=== PATIENT | female | born 1960 | race Caucasian/White ===

== ENCOUNTER 2019-12-03 11:06 | Outpatient (CLI) | payer OTHER, SELFPAY ==
--- NOTE | 2019-12-03 | ECG_ITS ---
Measurements Intervals [place] Rate: 71 P: 16 [place]: 161 QRS: 31 QRSD: 88 T: 45 QT: 402 QTc: 438 Interpretive Statements SINUS RHYTHM NORMAL ECG Electronically Signed On 12-03-2019 11:56:16 CDT by Ivan Araiza D.O.
[2019-12-03 11:51] LABS: Hemoglobin A1C 5.2 % (<5.7)
[2019-12-03 11:53] LABS: Albumin Level 4.4 g/dL (3.5-5.1)
[2019-12-03 11:56] LABS: Estimated Glomerular Filt Rate > 60; Glucose 94 mg/dL (65-105)
[2019-12-03 12:42] LABS: Urine Cotinine NEGATIVE
== END 2019-12-03 11:07 | disposition home or self-care (01) ==
LOC: ANHLAB 11:09
PROVIDERS: PCP Internal Medicine Geriatric Medicine; Visit Provider Orthopaedic Surgery
DX: M17.12 Unilateral primary osteoarthritis, left knee (principal)
CPT/HCPCS: 36415; 80307; 82040; 82565; 82947; 83036; 93005

== ENCOUNTER 2019-12-09 10:37 | Outpatient (CLI) | payer OTHER, SELFPAY ==
[2019-12-09 14:50] LABS: Basophils Absolute Auto 0.1 K/mm3 (0.0-0.1); Basophils Percent Auto 0.9 % (0.2-1.2); Eosinophils Absolute Auto 0.2 K/mm3 (0-0.3); Eosinophils Percent Auto 2.7 % (0-4.4); Hematocrit 39.8 % (37.0-47.0); Hemoglobin 12.5 g/dL (12.0-15.0); Immature Granulocyte Absolute 0.03 K/mm3 (0.00-0.031); Immature Granulocyte Percent A 0.3 % (0-0.5); Lymphocytes Absolute Auto 2.39 K/mm3 (0.9-3.2); Lymphocytes Percent Auto 27.9 % (18.3-44.2); Mean Corpuscular HGB Conc 31.4 g/dl (32-36); Mean Corpuscular Hemoglobin 28.6 pg (26-34); Mean Corpuscular Volume 91.1 fl (80-100); Monocytes Absolute Auto 0.8 K/mm3 (0.1-0.6); Monocytes Percent Auto 8.7 % (2.6-8.5); Neutrophils Absolute Auto 5.1 K/mm3 (1.3-6.7); Neutrophils Percent Auto 59.5 % (45.5-73.1); Platelet Count Result 343 k/mm3 (150-375); Red Blood Count 4.37 M/mm3 (4.2-5.4); Red Cell Distribution Width 13.7 % (11.5-14.5); White Blood Count 8.6 K/mm3 (4.5-10.0)
== END 2019-12-09 10:38 ==
LOC: ANHSURGERY 01-23 10:37
PROVIDERS: PCP Internal Medicine Geriatric Medicine; Visit Provider Orthopaedic Surgery
DX: M17.12 Unilateral primary osteoarthritis, left knee (principal); Z01.818 Encounter for other preprocedural examination
CPT/HCPCS: 36415; 85025; 87081

== ENCOUNTER 2019-12-27 00:26 | Outpatient (CLI) | payer OTHER, SELFPAY ==
[2019-12-27 18:04] LABS: SARS-CoV-2 RNA PCR Negative
== END 2019-12-27 00:27 | disposition home or self-care (01) ==
LOC: ANHCOVIDDT 00:26
PROVIDERS: PCP Internal Medicine Geriatric Medicine; Visit Provider Orthopaedic Surgery
DX: Z01.818 Encounter for other preprocedural examination (principal); Z20.828 Contact with and (suspected) exposure to other viral communicable diseases
CPT/HCPCS: 87635; C9803; U0003

== ENCOUNTER 2019-12-30 01:41 | Day surgery (SDC) | payer OTHER, SELFPAY ==
[2019-12-09 13:53] VITALS: BMI 32.6
[2019-12-09 14:35] VITALS: BP 117/74; PULSE 80; RESP 16; TEMP 37.3; O2SAT 97
--- NOTE | 2019-12-29 12:35 | WPDANESEPPF ---
Anes - Initial Pre Proc Eval Procedure: Operation Date: 12/30/19 11:30 Proposed Procedures p Left Total Knee Arthroplasty - Cristopher Joseph MD Date/Time: 12/29/19 12:35 Surgeon: Cristopher Joseph MD Pre Op Diagnosis: Primary OA Left Knee Patient Data Age: 59 Gender: F Height: 1.75 m Weight: 100.3 kg Last Vital Signs Temp 37.3 C 12/09/19 14:35 Pulse 80 12/09/19 14:35 Resp 16 12/09/19 14:35 BP 117/74 12/09/19 14:35 Pulse Ox 97 12/09/19 14:35 Allergies Allergy/AdvReac Type Severity Reaction Status Date / Time No Known Allergies Allergy Verified 12/30/19 09:34 Home Medications Medication Instructions Recorded Confirmed Type acetaminophen 500 mg tablet 500 mg PO Q6H PRN 11/27/19 12/30/19 History acetaminophen-caffeine 500 mg-65 2 tablet PO Q12H PRN 11/27/19 12/30/19 History mg tablet igjfmxu-qtmouekvg-ojtwfxs D2 500 1 tablet PO QAM 11/27/19 12/30/19 History mg-50 mg-100 unit chewable tablet ibuprofen 200 mg capsule 400 mg PO PRN PRN 11/27/19 12/30/19 History naproxen sodium 220 mg tablet 220 mg PO PRN PRN 11/27/19 12/30/19 History polyethylene glycol 3350 17 17 g PO DAILY 11/27/19 12/30/19 History gram/dose oral powder psyllium husk 0.4 gram capsule 0.4 g PO DAILY 11/27/19 12/30/19 History turmeric root extract 500 mg 500 mg PO QAM 11/27/19 12/30/19 History capsule L.acidophilus-B.bifidum-B.longum 1 cap PO QAM 12/03/19 12/30/19 History 240 mg (3 billion cell) capsule hydrocodone 5 mg-acetaminophen 325 1 tablet PO Q8H PRN 12/03/19 12/30/19 History mg tablet ECG: Date of Service: 12/03/19 Procedure(s): CA 12 lead EKG Accession Number(s): [id number] cc: ~ Measurements Intervals [place] Rate: 71 P: 16 [place]: 161 QRS: 31 QRSD: 88 T: 45 QT: 402 QTc: 438 Interpretive Statements SINUS RHYTHM NORMAL ECG Electronically Signed On 12-03-2019 11:56:16 CDT by Ivan Araiza D.O. Dictated By: Ivan Araiza DO 12/03/19 1153 Patient hx anesthesia problems: none Family hx anesthesia problems: none PMFSH Past Medical History Medical History Adenomatous colon polyp Arthritis Chronic knee pain after total replacement of right knee joint Diverticulitis (~06/2019) H/O tics Hemorrhoids Obesity Polyp of ascending colon Surgical History Surgical History H/O colonoscopy (~09/2019) H/O foot surgery H/O hand surgery H/O: hysterectomy (~2001) History of arthroscopy of right knee (~12/2013) History of bladder suspension procedure Hx of total knee arthroplasty (~05/08/18) Status post right partial knee replacement (~04/2013) Family History Family History Father ALS (amyotrophic lateral sclerosis) Mother Old age Unknown Heart disease Carcinoma of colon Social History Social History Smoking status: Never smoker Additional smoking assessment comments: DENIES ANY FORM OF TOBACCO USE Alcohol intake: current Drinks per week: 6 Alcohol use details: BEER/WINE Living arrangements: with family Spiritual care concerns: No Anes - Eval Final PreProcedure Day of Procedure 12/29/19 12:35 Patient weight: obese Heart: regular rate and rhythm Lungs: clear to auscultation and normal air movement Airway: Mallampati scale class II Neurological: alert and oriented Last oral intake: >/= 8 hours ASA classification: II Emergent: no Anesthetic plan: proceed Anesthesia type and monitoring: general LMA Informed Consent: The patient's
[2019-12-30] VITALS (13 sets, daily range): BP systolic 112–141; BP diastolic 57–78; PULSE 65–87; RESP 13–20; TEMP 36.2–37.1; O2SAT 92–98
--- NOTE | ~2019-12-30 | XR_ITS ---
EXAMINATION: XR knee LT 2V DATE: 12/30/2019 14:45 INDICATION: Total left knee arthroplasty. Postop. TECHNIQUE: 2 views of left knee were obtained. COMPARISON: None. FINDINGS: There is a total left knee arthroplasty without patellar resurfacing. Tibia demonstrates 8 degrees posterior angulation with respect to tibial component. No fracture. There is gas in the soft tissues, consistent with recent surgery. IMPRESSION: 1. New total left knee arthroplasty. Reviewed, dictated and finalized at location B. DE SALES ASSOCIATE
--- NOTE | 2019-12-30 07:56 | WPDHPUPDATE1 ---
History and Physical Update Update Date/Time: 12/30/19 07:56 History and Physical has been reviewed, including an updated exam of the patient. There are NO changes in the patient's condition. Risks, benefits, and alternatives have been discussed and questions answered. Patient agrees to proceed with procedure.
[2019-12-30] MEDS: LACTATED RINGERS 1,000 ML 30 ML IV CONT ×3 (10:05→15:35)
[2019-12-30] MEDS: ACETAMINOPHEN 500 MG TABLET 1000 MG PO (10:05)
[2019-12-30] MEDS: KETOROLAC 15 MG/ML VIAL (*BKC) IV PUSH ×3 (10:05→21:12)
--- NOTE | 2019-12-30 10:11 | WPDANESPNB ---
Anes - Peripheral Nerve Block Date/Time: 12/30/19 10:11 I have discussed with the patient/family/POA the placement of a peripheral nerve block for post-operative pain management, including associated risks, benefits, complications, and side effects. Alternative methods of post-operative analgesia were detailed. Questions were solicited and answers provided to the satisfaction of the patient/family/POA. Time-Out: A pre-procedural Time-Out was completed immediately before starting the procedure and confirmed: Patient Identification, Site, Procedure, Patient Position and the Availability of Requisite Equipment. Clinical Indications: Acute post-operative pain management requested by the operative surgeon. Nerve Block Insertion Note Anes-nerve block: adductor canal left Patient position: supine Skin prep: chlorhexidine Needle: 22 gauge, stimulating, insulated echogenic needle. Needle length: 80 mm Technique: ultrasound Technique comment: in plane Injectate: bupivacaine 0.5% with epi 5 mcg/ml (30cc) Observations: tolerated well Complications: none Procedure start time:: 1145 Procedure end time:: 1150
[2019-12-30] MEDS: TRANEXAMIC ACID 1,000MG/ISO100 1,000 MG/100 ML BAG 200 MG IVPB (10:55)
--- NOTE | 2019-12-30 11:44 | SUR.PREOP ---
Up to bathroom.
[2019-12-30] MEDS: ceFAZolin 2 GM/D5W 50 ML 2 GM/50 ML BAG IVPB (11:58)
[2019-12-30] MEDS: fentaNYL CITRATE INJ (*CRX) 100 MCG/2 ML VIAL 25 MCG IV PUSH ×8 (14:56→15:41)
[2019-12-30] MEDS: ONDANSETRON INJ 4 MG/2 ML VIAL IV PUSH (14:59)
--- NOTE | 2019-12-30 15:09 | P.OP_ITS ---
Procedure Note - Detailed Date of procedure: 12/31/19 Pre-op diagnosis: Primary OA Left Knee Post-op diagnosis: same Procedure performed: Total knee arthroplasty, left Implants: Zimmerman Triathlon size 3 press-fit femur, size 4 cemented low-profile tibia, 9 mm posterior stablilized polyethylene insert. Anesthesia: GETA and regional (subsartorial nerve block) Surgeon: Cristopher Joseph MD Estimated blood loss (mL): 200 Drains: No Complications: None Condition: stable Disposition: PACU Findings: OPERATIVE DETAILS: The patient was given a nerve block preoperatively, and then brought to the operating room. A general anesthetic was administered. The leg was prepped and draped in the usual sterile fashion. The limb was elevated and the tourniquet inflated to 300 mmHg during initial exposure and cementation. A longitudinal incision was created along the medial border of the patella and patellar tendon, and a minimally invasive optimized mid-vastus approach to the knee was performed. A minimal medial release was taken. The knee was then flexed. The osteophytes were carefully removed. The intramedullary guide was placed in the femoral canal. The distal femoral resection was then taken with the oscillating saw. The collateral ligaments were carefully protected. The tibia was carefully exposed. The jig was applied, and the proximal tibia was resected according to preoperative plan. The knee was balanced in extension. Appropriate releases were taken where needed. The anterior cruciate ligament and meniscal remnants were removed. The posterior cruciate ligament was preserved. The patella was measured. The thickness was less than 10 mm at the lateral facet. This was deemed too thin for resurfacing. Arthroplasty was performed with careful contouring of the lateral facet. Bipolar electrocautery was used for denervation. The femur was sized and rotation assessed using a combination of gap balancing, posterior referencing, and the AP axis. The 4 in 1 cutting block was used to finish the femoral cuts after equal gaps were assured. The PCL was not functioning very well with trialing. It was elected to proceed with PCL substituting knee design and the box cut was taken. The lug holes were drilled. The osteophytes were carefully removed from the back of the knee. The knee was copiously irrigated with antibiotic solution periodically throughout the procedure. The meniscal remnants were removed. The spacer block was used to confirm equal flexion and extension gaps. The tibia was sized and broached. The bony surfaces were prepared for cementing with pulsatile lavage. The real tibial component was cemented into position followed by press fitting the femoral component. Excess cement was carefully removed. Patellar tracking was carefully assessed. No additional releases were required. The wound was closed with #1 Vycril suture, #2 Quill suture, 0-Quill suture, and 2-0 Quill suture followed by Steri-Strips. A sterile bulky dressing was applied. Meticulous hemostasis was maintained throughout the procedure. There were no complications. The patient was extubated and brought to the recovery room in stable condition after the application of sterile dressing with Robinson bandage.
--- NOTE | 2019-12-30 16:01 | ADMGEN ---
This patient, Alana Batres, was admitted to Medical Room 258-01. Patient/family oriented to hospital policies and general routines including ID bracelet, bed and alarms, visiting hours, pain management, procedures, bathroom and other care routines, personal items, smoking policy, room service/diet, and visiting hours. Information on how to activate the Rapid Response Team has been discussed. Patient/Family are encouraged to report perceived risks to care and to ask questions if they do not understand what they are told or what they should do.
[2019-12-30] MEDS: DOCUSATE SODIUM 100 MG CAPSULE PO (17:08)
[2019-12-30] MEDS: ASPIRIN 81 MG ENTERIC TABLET PO (17:08)
[2019-12-30] MEDS: oxyCODONE HCL (*CRX) 5 MG TAB IR PO (17:16)
[2019-12-30] MEDS: oxyCODONE HCL (*CRX) 5 MG TAB IR 10 MG PO (21:11)
[2019-12-30] MEDS: SENNOSIDES 8.6 MG TABLET 17.2 MG PO (21:11)
[2019-12-31] MEDS: oxyCODONE HCL (*CRX) 5 MG TAB IR 10 MG PO ×3 (01:02→08:59)
[2019-12-31 02:00] VITALS: BP 108/55; PULSE 70; RESP 20; TEMP 36.6; O2SAT 98
[2019-12-31] MEDS: KETOROLAC 15 MG/ML VIAL (*BKC) IV PUSH ×2 (04:04→10:24)
[2019-12-31 05:29] LABS: Basophils Percent Auto 0.3 % (0.2-1.2); Eosinophils Absolute Auto 0.1 K/mm3 (0-0.3); Eosinophils Percent Auto 0.8 % (0-4.4); Hematocrit 33.1 % (37.0-47.0); Hemoglobin 10.6 g/dL (12.0-15.0); Immature Granulocyte Absolute 0.05 K/mm3 (0.00-0.031); Immature Granulocyte Percent A 0.4 % (0-0.5); Lymphocytes Absolute Auto 2.35 K/mm3 (0.9-3.2); Lymphocytes Percent Auto 19.9 % (18.3-44.2); Mean Corpuscular Hemoglobin 28.4 pg (26-34); Mean Corpuscular Volume 88.7 fl (80-100); Monocytes Absolute Auto 1.3 K/mm3 (0.1-0.6); Monocytes Percent Auto 11.4 % (2.6-8.5); Neutrophils Absolute Auto 7.9 K/mm3 (1.3-6.7); Neutrophils Percent Auto 67.2 % (45.5-73.1); Platelet Count Result 225 k/mm3 (150-375); Red Blood Count 3.73 M/mm3 (4.2-5.4); Red Cell Distribution Width 14.2 % (11.5-14.5); White Blood Count 11.8 K/mm3 (4.5-10.0)
[2019-12-31 05:39] LABS: Anion Gap 3 mmol/L (8-16); Blood Urea Nitrogen 12 mg/dL (7-17); Calcium 8.4 mg/dL (8.4-10.2); Carbon Dioxide 26 mmol/L (22-30); Chloride 109 mmol/L (98-107); Estimated CRCL calculation 110 ml/min; Estimated Glomerular Filt Rate > 60; Glucose 96 mg/dL (65-105); Potassium 4.2 mmol/L (3.4-5.0); Sodium 138 mmol/L (137-145)
[2019-12-31 06:00] VITALS: BP 102/54; PULSE 90; RESP 20; TEMP 36.8; O2SAT 98
--- NOTE | 2019-12-31 07:49 | WPDANESPN ---
Anes - Prog Note Post-Op Date/Time: 12/31/19 07:49 Cardiovascular status: normal Respiratory status: normal Airway patency: baseline Mental status: baseline Post-Op hydration status: normal Vital Signs: Last Vital Signs Temp 36.6 C 12/31/19 02:00 Pulse 70 12/31/19 02:00 Resp 20 12/31/19 02:00 BP 108/55 L 12/31/19 02:00 Pulse Ox 98 12/31/19 02:00 Pain Score (VAS): 8 I/O: Intake & Output 12/30/19 12/30/19 12/31/19 15:59 23:59 07:59 Intake Total 850 390 250 Output Total 700 Balance 850 390 -450 Laboratory Tests 12/31/19 05:16 12/31/19 05:16 12/30/19 12/31/19 12/31/19 09:33 05:16 05:16 WBC 11.8 H RBC 3.73 L Hgb 10.6 L Hct 33.1 L MCV 88.7 MCH 28.4 MCHC 32.0 RDW 14.2 Plt Count 225 MPV 10.0 Immature Gran % (Auto) 0.4 Neut % (Auto) 67.2 Lymph % (Auto) 19.9 Dickens % (Auto) 11.4 H Eos % (Auto) 0.8 Baso % (Auto) 0.3 Lymph # (Auto) 2.35 Dickens # (Auto) 1.3 H Eos # (Auto) 0.1 Baso # (Auto) 0.0 Abs Immat Gran (auto) 0.05 H Absolute Neuts (auto) 7.9 H Absolute Nucleated RBC 0.0 Nucleated RBC % 0.0 Sodium 138 Potassium 4.2 Chloride 109 H Carbon Dioxide 26 Anion Gap 3 L BUN 12 Creatinine 0.60 L Estim Creat Clear Calc 110 Estimated GFR > 60 Glucose 96 Calcium 8.4 Blood Type O Positive Antibody Screen Negative Post-procedural complaints: none Patient Feedback: Patient satisfied with anesthetic care.
[2019-12-31] MEDS: DOCUSATE SODIUM 100 MG CAPSULE PO (08:10)
[2019-12-31] MEDS: polyethylene glycoL 3350 17 GM POWD.PACK PO (08:10)
[2019-12-31] MEDS: PSYLLIUM POWDER PACKET 1 PACKET PO (08:10)
[2019-12-31] MEDS: ACIDOPHILUS/BULGARICUS CHEWABLE TABLET 1 TABLET PO (08:10)
[2019-12-31] MEDS: ASPIRIN 81 MG ENTERIC TABLET PO (08:10)
[2019-12-31 09:58] VITALS: BP 115/53; PULSE 90; RESP 20; TEMP 36.4; O2SAT 97
[2019-12-31] MEDS: CYCLOBENZAPRINE HCL 10 MG TABLET PO (11:52)
--- NOTE | 2019-12-31 12:06 | PCOTNOTE ---
On 12/31/19, the student, Justine Chowdhury, provided care and completed [facility] documentation on this patient. I have reviewed the student's documentation and agree with the findings.
== END 2019-12-31 12:35 | disposition home or self-care (01) ==
LOC: ANHSURGERY 09:22 → ANH2MED 15:46
PROVIDERS: PCP Internal Medicine Geriatric Medicine; Visit Provider Orthopaedic Surgery
PROC: (CPT 27447; principal; 2019-12-30 11:30)
DX: M17.12 Unilateral primary osteoarthritis, left knee (principal); M25.761 Osteophyte, right knee; G89.18 Other acute postprocedural pain; E66.9 Obesity, unspecified; Z68.32 Body mass index [BMI] 32.0-32.9, adult; Z79.82 Long term (current) use of aspirin; Z79.899 Other long term (current) drug therapy
CPT/HCPCS: 64447; 27447; 36415; 73560; 80048; 85025; 86850; 86900; 86901; 97110; 97116; 97161; 97165; A9270; C1713; C1776; J0131; J0171; J0690; J1100; J1170; J1885; J2250; J2270; J2405; J2704; J2795; J3010; J7120

== ENCOUNTER 2020-05-07 16:27 | Emergency (ER) | payer OTHER, SELFPAY ==
--- NOTE | ~2020-05-07 | XR_ITS ---
XR wrist LT min 3V DATE: 05/07/2020 16:52 INDICATION: Ulnar pain TECHNIQUE: 4 views COMPARISON: None FINDINGS: There is patchy sclerosis of the lunate bone consistent with avascular necrosis (Kienbock's disease). Mild osteoarthritis at the first carpometacarpal and metacarpal joints. No fracture or dislocation, periosteal reaction or bone destruction. IMPRESSION: Kienbock's disease of lunate Reviewed, dictated and finalized at location A.
--- NOTE | 2020-05-07 16:34 | ED.GENADULT ---
HPI - General Adult General Chief complaint: Extremity Injury, Upper Stated complaint: left wrist injury Time Seen by Provider: 05/07/20 16:34 Source: patient Mode of arrival: ambulatory Limitations: no limitations History of Present Illness HPI narrative: 59-year-old female patient presents to the [facility] with complaints of left wrist pain for the past 6 days. Patient states last Sunday she went to the post office when she went to go and leave she was going for force towards the door states that the big heavy door did not open and she slammed her left wrist up against the door. Patient states the first day that happened she did ice it but denies any ice since then. Patient states it has been swollen and bruised. Patient states she has some home tramadol she has been taking for pain. Patient states she is also had now some numbness and tingling to the pinky and ring finger of the left hand. Patient states she is right-hand dominant. Patient states most of her pain is on the ulnar side of the wrist and states she is able to bend it but states it just causes her pain when she does. Related Data Allergies Allergy/AdvReac Type Severity Reaction Status Date / Time No Known Allergies Allergy Verified 05/07/20 16:45 Review of Systems Review of Systems: Narrative: CONSTITUTIONAL: Denies fever, chills, or sweats. EYES: Denies visual changes, redness, or discharge. ENT: Denies rhinorrhea, congestion, sore throat, or otalgia. CARDIOVASCULAR: Denies chest pain, palpitations, or edema. RESPIRATORY: Denies cough or dyspnea. GASTROINTESTINAL: Denies abdominal pain, nausea, vomiting, or diarrhea. GENITOURINARY: Denies dysuria or hematuria. SKIN: Denies rash or itching. MUSCULOSKELETAL: Denies back pain, joint pain, or myalgia. Positive left wrist pain x6 days NEUROLOGIC: Denies headache, numbness, or weakness. PSYCHIATRIC: Denies anxiety or depression. [facility] Past Medical History Medical History Adenomatous colon polyp Arthritis Chronic knee pain after total replacement of right knee joint Diverticulitis (~06/2019) H/O tics Hemorrhoids Obesity Polyp of ascending colon Surgical History Surgical History H/O colonoscopy (~09/2019) H/O foot surgery H/O hand surgery H/O: hysterectomy (~2001) History of arthroscopy of right knee (~12/2013) History of bladder suspension procedure Hx of total knee arthroplasty (~05/08/18) Status post right partial knee replacement (~04/2013) Family History Family History Father ALS (amyotrophic lateral sclerosis) Mother Old age Unknown Heart disease Carcinoma of colon Social History Social History Smoking status: Never smoker Additional smoking assessment comments: DENIES ANY FORM OF TOBACCO USE Alcohol intake: current Drinks per week: 3 Substance use: never Substance use type: does not use Gender identity (if verbalized by the patient): Female Spiritual care concerns: No Comments At the time of my signature I agree with nursing past medical history, surgical, social, and family history. There is no relevant family history pertinent to the presenting complaint. Exam Narrative: Exam Narrative: GENERAL: Well-appearing, well-nourished, and in no acute distress. HEAD: Normocephalic, atraumatic. EYES: PERRLA and EOMI. ENT: Nares clear, no rhinorrhea or epistaxis. Mucous membranes moist. NECK: Supple. No lymphadenopathy CHEST: Clear to auscultation. No respiratory distress. HEART: Regular rate and rhythm. No murmur heard. Normal peripheral pulses. ABDOMEN: Soft, nontender, nondistended, normal active bowel sounds. EXTREMITIES: The L wrist is without obvious asymmetry or deformity when compared to the R wrist. No surface trauma, open wounds, swelling, or obvious
[2020-05-07 16:35] VITALS: BP 119/69; PULSE 83; RESP 14; O2SAT 98
== END 2020-05-07 17:23 | disposition home or self-care (01) ==
PROVIDERS: Emergency Provider Nurse Practitioner Family; PCP Internal Medicine Geriatric Medicine
DX: S63.502A Unspecified sprain of left wrist, initial encounter (principal); W22.8XXA Striking against or struck by other objects, initial encounter; M19.90 Unspecified osteoarthritis, unspecified site; Z96.651 Presence of right artificial knee joint
CPT/HCPCS: 73110; 99213; G0463

== ENCOUNTER 2021-03-30 07:32 | Outpatient (CLI) | payer OTHER, SELFPAY ==
--- NOTE | ~2021-03-30 | XR_ITS ---
EXAMINATION: XR wrist LT 2V EXAM DATE: 03/30/2021 08:00 INDICATION: M25.539 - Pain in unspecified wrist . TECHNIQUE: Frontal and lateral projections of the left wrist. Comparison is made to prior examinatio n from 05/07/2020. FINDINGS: There is acute closed posttraumatic fracture off the dorsal aspect of a left carpal bone. This is often a triquetral fracture. There is overlying soft tissue swelling. Mild sclerosis of the l unate, could be avascular necrosis unchanged. IMPRESSION: 1. Acute dorsal carpal fracture, probably triquetral. Swelling. 2. Lunate sclerosis, could be avascular necrosis. Reviewed, dictated and finalized at location B. DER HELPER
--- NOTE | ~2021-03-30 | XR_ITS ---
XR wrist RT 2V DATE: 03/30/2021 08:00 INDICATION: Wrist pain TECHNIQUE: AP and lateral views COMPARISON: None FINDINGS: Moderate osteoarthritic changes noted at the first metacarpophalangeal joint. No fracture or dislocation, periosteal reaction or bone destruction, erosive change or chondrocalcino sis or significant joint space narrowing is noted at the right wrist. IMPRESSION: No significant abnormality right wrist Osteoarthritis of first carpophalangeal joint Reviewed, dictated and finalized at location A.
--- NOTE | ~2021-03-30 | XR_ITS ---
EXAMINATION: XR knee RT 3V, XR knee LT 3V DATE: 03/30/2021 10:50 INDICATION: Bilateral anterior knee pain right greater than left. TECHNIQUE: 1. Standing anteroposterior, lateral and sunrise views of the right knee were obtained 2. Standing anteroposterior, lateral and sunrise views of the left knee were obtained COMPARISON: None. FINDINGS: Bilateral total knee arthroplasties which appear well-seated in near-anatomic alignment. There is ass ociated patellar resurfacing on the right. There is suggestion of some cartilage thinning at the left patella. No fractures identified. Small amount of heterotopic ossification with smooth corticated ma rgins along the inferior margin of the right patella. Small bilateral knee joint effusions and/or syn ovitis at the suprapatellar pouches. Mild right prepatellar soft tissue swelling. IMPRESSION: 1. Bilateral total knee arthroplasties in near-anatomic alignment. No acute osseous abnormality at ei ther knee. 2. Small bilateral knee joint effusions and/or synovitis. Reviewed, dictated and finalized at location A. ICAL TREATMENT OPERATOR IMPRESSION: 1. Bilateral total knee arthroplasties in near-anatomic alignment. No acute oss eous abnormality at either knee. 2. Small bilateral knee joint effusions and/or synovitis.
== END 2021-03-30 07:33 | disposition home or self-care (01) ==
PROVIDERS: PCP Family Medicine; Visit Provider Family Medicine
DX: M25.461 Effusion, right knee (principal); M25.462 Effusion, left knee; M79.89 Other specified soft tissue disorders; M19.031 Primary osteoarthritis, right wrist
CPT/HCPCS: 73100; 73562

== ENCOUNTER 2021-12-05 12:23 | Outpatient (CLI) | payer OTHER, SELFPAY ==
[2021-12-05 20:10] LABS: Add Urine Microscopic? YES; Appearance Urine Clear (Clear); Bilirubin Urine Negative (Negative); Blood Urine 1+ (Negative); Color Urine Yellow (Yellow); Glucose Urine UA Negative (Negative); Ketones Urine Negative (Negative); Leukocyte Esterase Ur Negative LEU/UL (NEGATIVE); Mucus Urine Rare /lpf; Nitrate Urine Negative (Negative); Protein Urine Negative (Negative); RBC Urine 0-2 /hpf (0-2); Specific Grav Ur 1.011 (1.001-1.035); Urobilinogen Urine Negative mg/dL (<2.0); WBC Urine 0-3 /hpf (0-3)
== END 2021-12-05 12:24 | disposition home or self-care (01) ==
LOC: ANHBWCLAB 12:24
PROVIDERS: PCP Family Medicine; Visit Provider Family Medicine
DX: R82.998 Other abnormal findings in urine (principal)
CPT/HCPCS: 81001; 87086

== ENCOUNTER 2022-04-24 08:18 | Outpatient (CLI) | payer OTHER, SELFPAY ==
[2022-04-24 18:53] LABS: Basophils Absolute Auto 0.1 K/mm3 (0.0-0.1); Basophils Percent Auto 0.9 % (0.2-1.2); Eosinophils Absolute Auto 0.3 K/mm3 (0-0.3); Eosinophils Percent Auto 4.4 % (0-4.4); Hematocrit 42.6 % (37.0-47.0); Hemoglobin 12.8 g/dL (12.0-15.0); Immature Granulocyte Absolute 0.04 K/mm3 (0.00-0.031); Immature Granulocyte Percent A 0.5 % (0-0.5); Lymphocytes Percent Auto 22.6 % (18.3-44.2); Mean Corpuscular Hemoglobin 27.9 pg (26-34); Mean Platelet Volume 10.3 fl (7.4-10.4); Monocytes Absolute Auto 0.8 K/mm3 (0.1-0.6); Monocytes Percent Auto 11.1 % (2.6-8.5); Neutrophils Absolute Auto 4.5 K/mm3 (1.3-6.7); Neutrophils Percent Auto 60.5 % (45.5-73.1); Platelet Count Result 401 k/mm3 (150-375); Red Blood Count 4.58 M/mm3 (4.2-5.4); Red Cell Distribution Width 13.7 % (11.5-14.5); White Blood Count 7.5 K/mm3 (4.5-10.0)
[2022-04-24 20:16] LABS: Appearance Urine Clear (Clear); Bilirubin Urine Negative (Negative); Blood Urine Negative (Negative); Color Urine Yellow (Yellow); Glucose Urine UA Negative (Negative); Ketones Urine Negative (Negative); Leukocyte Esterase Ur Negative LEU/UL (NEGATIVE); Nitrate Urine Negative (Negative); Protein Urine Negative (Negative); Specific Grav Ur 1.025 (1.001-1.035); Urobilinogen Urine 0.2 mg/dL (<2.0)
[2022-04-24 20:21] LABS: Add Urine Microscopic? NO
[2022-04-24 20:24] LABS: Mucus Urine Rare /lpf; RBC Urine 0-2 /hpf (0-2); Squamous Epithelial Cell Urine Rare /hpf (Few); WBC Urine 0-3 /hpf (0-3)
== END 2022-04-24 08:19 | disposition home or self-care (01) ==
LOC: ANHBWCLAB 08:19
PROVIDERS: PCP Family Medicine; Visit Provider Family Medicine
DX: R10.9 Unspecified abdominal pain (principal); M54.50 Low back pain, unspecified; D12.6 Benign neoplasm of colon, unspecified; E66.9 Obesity, unspecified; M25.561 Pain in right knee; M25.562 Pain in left knee; R19.8 Other specified symptoms and signs involving the digestive system and abdomen
CPT/HCPCS: 36415; 81003; 85025

== ENCOUNTER 2022-06-20 08:45 | Outpatient (CLI) | payer OTHER, SELFPAY ==
--- NOTE | ~2022-06-20 | XR_ITS ---
Lumbosacral Spine: AP and lateral views Clinical History: Pain Findings: The normal lordotic curve is maintained. No acute fracture identified. There is 1 cm yarelis listhesis of L3 over L4, with severe degenerative disc narrowing at L3-L4. Questionable underlying L3 pars defects. The sacroiliac joints are normally outlined. Impression: 1 cm anterolisthesis of L3 over L4 with severe degenerative disc narrowing at L3-L4. Questionable underlying pars defects of L3. Reviewed, dictated and finalized at [facility]. Impression: 1 cm anterolisthesis of L3 over L4 with severe degenerative disc narrowing at L 3-L4. Questionable underlying pars defects of L3.
== END 2022-06-20 08:46 | disposition home or self-care (01) ==
LOC: ANHBWCIMG 08:47
PROVIDERS: PCP Family Medicine; Visit Provider Nurse Practitioner
DX: M54.50 Low back pain, unspecified (principal)
CPT/HCPCS: 72100

== ENCOUNTER → 2022-06-29 08:17 | Outpatient (CLI) | payer OTHER, SELFPAY ==
--- NOTE | ~2022-06-29 | MR_ITS ---
MRI of the lumbar spine Clinical History: Back pain Technique: Axial T2-weighted images, and sagittal T1-weighted, T2-weighted, and T2 fat-sat images wer e acquired. Findings: Bilateral L3 pars interarticularis defects are present, with associated 8 mm anterolisthesi s of L3 over L4. There is severe degenerative disc narrowing at L3-L4, with mild reactive marrow sign al changes about this disc space. At L1-L2, there is no disc bulge or herniation. There is mild facet joint hypertrophy. No spinal vijay l stenosis or neural foraminal narrowing. At L2-L3, there is no disc bulge or herniation. There is moderate facet arthropathy. No spinal canal stenosis or neural foraminal narrowing. At L3-L4, there is diffuse disc bulge and disc uncovering, with mild to moderate facet arthropathy. N o angela spinal canal stenosis. There is moderate right neural foraminal narrowing and mild to moderat e left neural foraminal narrowing. At L4-L5, there is no disc bulge or herniation. There is minimal facet joint hypertrophy. No spinal c anal stenosis or neural foraminal narrowing. At L5-S1, there is no disc bulge or herniation. There is minimal facet arthropathy. No spinal canal s tenosis or neural foraminal narrowing. Paravertebral soft tissues are unremarkable. Impression: Bilateral L3 pars interarticularis defects, with 8 mm anterolisthesis of L3 over L4. Additional degenerative spondylitic changes at L3-L4, with moderate right neural foraminal narrowing and mild to moderate left neural foraminal narrowing. Minimal degenerative changes in the remainder of the lumbar spine, as detailed above. Reviewed, dictated and finalized at [facility]. Impression: Bilateral L3 pars interarticularis defects, with 8 mm anterolisthesis of L3 ove r L4. Additional degenerative spondylitic changes at L3-L4, with moderate right neura l foraminal narrowing and mild to moderate left neural foraminal narrowing. Minimal degenerative changes in the remainder of the lumbar spine, as detailed above.
== END ==
PROVIDERS: PCP Family Medicine; Visit Provider Nurse Practitioner
DX: M54.50 Low back pain, unspecified (principal); M43.16 Spondylolisthesis, lumbar region; M47.896 Other spondylosis, lumbar region
CPT/HCPCS: 72148

== ENCOUNTER 2022-06-30 08:11 | Outpatient (CLI) | payer OTHER, SELFPAY ==
--- NOTE | ~2022-06-30 | MM_ITS ---
EXAMINATION: MM screening tamela BI w gisell HISTORY: Screening mammogram TECHNIQUE: Craniocaudal and mediolateral oblique 3-D tomosynthesis images were obtained and synthetic 2-D images were generated. CAD analysis was submitted and interpreted. COMPARISON: No prior mammogram is available for comparison at this institution. BREAST PARENCHYMAL COMPOSITION: The breasts are heterogeneously dense, which may obscure small masses . FINDINGS: No suspicious mass, calcification, or architectural distortion are identified in either mell ast to suggest malignancy. IMPRESSION: 1. No mammographic evidence of malignancy. 2. Recommend routine screening mammography in one year. BI-RADS Category 1: Negative Reviewed, dictated and finalized at location A.
== END 2022-06-30 08:12 | disposition home or self-care (01) ==
LOC: ANHIMG 08:13
PROVIDERS: PCP Family Medicine; Visit Provider Family Medicine
DX: Z12.31 Encounter for screening mammogram for malignant neoplasm of breast (principal)
CPT/HCPCS: 77063; 77067

== ENCOUNTER 2023-01-04 08:12 | Emergency (ER) | payer OTHER, SELFPAY ==
--- NOTE | 2023-01-04 08:21 | ED.URI ---
HPI - URI/Sore Throat General Chief Complaint: Upper Respiratory Infection Stated Complaint: Sore Throat Source: patient and RN notes reviewed History of Present Illness HPI Narrative: 62 yo F presents to urgent care with complaints of sore throat since Sunday night. Denies any other symptoms. Pt has been taking ibuprofen at home. Related Data Home Medications Medication Instructions Recorded Confirmed acetaminophen 500 mg tablet 500 mg PO Q6H PRN Pain (Scale 10/11/20 01/04/23 (Acetaminophen Extra Strength) Score 4-6) quhqrywnqyzp-egbafjqi-vewggym-folic 1 tablet PO DAILY 10/11/20 01/04/23 acid 400 mcg-vit K1 20 mcg tablet (One-A-Day Women's 50 Plus) wheat dextrin 3 gram/3.5 gram oral 1.5 g PO BID 10/11/20 06/27/22 powder (Best Fiber) Allergies Allergy/AdvReac Type Severity Reaction Status Date / Time No Known Allergies Allergy Verified 01/04/23 08:28 Review of Systems Review of Systems: CONSTITUTIONAL: Denies fever, chills, or sweats. EYES: Denies visual changes, redness, or discharge. ENT: Denies otalgia CARDIOVASCULAR: Denies chest pain, palpitations, or edema. RESPIRATORY: Denies cough or dyspnea. GASTROINTESTINAL: Denies abdominal pain, nausea, vomiting, or diarrhea. GENITOURINARY: Denies dysuria or hematuria. SKIN: Denies rash or itching. MUSCULOSKELETAL: Denies back pain, joint pain, or myalgia. NEUROLOGIC: Denies headache, numbness, or weakness. Pertinent positives per HPI. [facility] Past Medical History Medical History Adenomatous colon polyp Arthritis Chronic knee pain after total replacement of right knee joint Diverticulitis (~06/2019) Elective x1 Obesity Polyp of ascending colon Right wrist pain Tendonitis Vaginal delivery x2 Surgical History Surgical History H/O colonoscopy (~09/2019) H/O foot surgery H/O hand surgery H/O: hysterectomy (~2001) 2003 History of arthroscopy of right knee (~12/2013) History of bilateral tubal ligation 1994 History of bladder suspension procedure 2007 History of dilation and curettage x2 History of total knee replacement (TKR) x2, both knees Hx of total knee arthroplasty (~05/08/18) right Status post right partial knee replacement (~04/2013) [place] teeth extracted Family History Family History Father ALS (amyotrophic lateral sclerosis) Mother Old age Colon cancer Unknown Heart disease Carcinoma of colon Sibling Malignant neoplasm of prostate Bladder cancer A-fib Acute myocardial infarction Diabetes mellitus Hypertension Depression Thyroid disorder Grandparent Cerebrovascular accident Other Breast cancer maternal cousin Other Arthritis Lung disease Social History Social History Smoking status: Never smoker Additional smoking assessment comments: DENIES ANY FORM OF TOBACCO USE Alcohol intake: current Drinks per week: 6 Alcohol use details: BEER/WINE Substance use: never Substance use type: does not use Lack of Transportation: No Lack of Food: Never True Current Housing: I Have Housing Concerned About Future Housing: No Difficulty Paying Gas/Electric Bills: No Difficulty Paying for Meds: No Currently Unemployed: No Education: Trade/Vocational Certificate Difficulty w/ Childcare or Family Care: No Living arrangements: with family Gender identity (if verbalized by the patient): Female Spiritual care concerns: No Agree to blood products: Yes Comments At the time of my signature, I reviewed and agree with the nursing past medical, surgical, social, and family history. There is no relevant family history pertinent to the patient complaint. Exam Narrative: GENERAL: This is a well-nourished, well-devel
[2023-01-04 08:24] VITALS: BP 133/91; PULSE 85; RESP 18; TEMP 36.8; O2SAT 97
== END 2023-01-04 08:45 | disposition home or self-care (01) ==
PROVIDERS: Emergency Provider Nurse Practitioner Family; PCP Family Medicine
DX: J02.0 Streptococcal pharyngitis (principal); M19.90 Unspecified osteoarthritis, unspecified site; E66.9 Obesity, unspecified; Z68.34 Body mass index [BMI] 34.0-34.9, adult; Z96.653 Presence of artificial knee joint, bilateral
CPT/HCPCS: 87880; 99213; G0463

== ENCOUNTER 2023-01-20 08:29 | Emergency (ER) | payer OTHER, SELFPAY ==
--- NOTE | ~2023-01-20 | XR_ITS ---
EXAMINATION: XR chest 2V DATE: 01/20/2023 09:50 INDICATION: One week of cough TECHNIQUE: PA and lateral views of the chest were obtained. COMPARISON: None FINDINGS: The lungs are clear with no focal airspace opacities, pulmonary edema, pleural effusion or pneumothor ax. The cardiomediastinal silhouette is normal. Mild thoracic spondylosis. IMPRESSION: 1. No acute cardiopulmonary disease. Reviewed, dictated and finalized at location A. [employer]
[2023-01-20 08:38] VITALS: BP 127/77; PULSE 93; RESP 20; TEMP 37.2; O2SAT 94
--- NOTE | 2023-01-20 09:42 | ED.GENADULT ---
HPI - General Adult General Chief complaint: Upper Respiratory Infection Stated complaint: Sore Throat, Trouble Breathing, Chest Pain Source: patient Mode of arrival: ambulatory Limitations: no limitations History of Present Illness HPI narrative: Patient presents for evaluation of sick symptoms. She indicates she was evaluated here on 01/04/2023 and was diagnosed with strep. She indicates she was given a prescription for amoxicillin, which she took as directed. Her symptoms improved on medication but returned thereafter. She reports sore throat, right-sided otalgia, pain in the lower ribs bilaterally with coughing. She denies any nausea, vomiting or diarrhea. A coworker recently tested positive for COVID. She does not smoke. She took some mucinex and tylenol cold and sinus for her symptoms. Related Data Allergies Allergy/AdvReac Type Severity Reaction Status Date / Time No Known Allergies Allergy Verified 01/20/23 09:01 Review of Systems Review of Systems: CONSTITUTIONAL: Denies fever, chills, or sweats. EYES: Denies visual changes, redness, or discharge. ENT: Reports sore throat and right-sided otalgia. Denies rhinorrhea or congestion CARDIOVASCULAR: Denies chest pain, palpitations, or edema. RESPIRATORY: Reports cough and pain in the lower ribs bilaterally with cough GASTROINTESTINAL: Denies abdominal pain, nausea, vomiting, or diarrhea. GENITOURINARY: Denies dysuria or hematuria. SKIN: Denies rash or itching. MUSCULOSKELETAL: Denies back pain, joint pain, or myalgia. NEUROLOGIC: Denies headache, numbness, dizziness, or weakness. PSYCHIATRIC: Denies anxiety or depression. [facility] Past Medical History Medical History Adenomatous colon polyp Arthritis Chronic knee pain after total replacement of right knee joint Diverticulitis (~06/2019) Elective x1 Obesity Polyp of ascending colon Right wrist pain Tendonitis Vaginal delivery x2 Surgical History Surgical History H/O colonoscopy (~09/2019) H/O foot surgery H/O hand surgery H/O: hysterectomy (~2001) 2003 History of arthroscopy of right knee (~12/2013) History of bilateral tubal ligation 1994 History of bladder suspension procedure 2007 History of dilation and curettage x2 History of total knee replacement (TKR) x2, both knees Hx of total knee arthroplasty (~05/08/18) right Status post right partial knee replacement (~04/2013) [place] teeth extracted Family History Family History Father ALS (amyotrophic lateral sclerosis) Mother Old age Colon cancer Unknown Heart disease Carcinoma of colon Sibling Malignant neoplasm of prostate Bladder cancer A-fib Acute myocardial infarction Diabetes mellitus Hypertension Depression Thyroid disorder Grandparent Cerebrovascular accident Other Breast cancer maternal cousin Other Arthritis Lung disease Social History Social History Smoking status: Never smoker Additional smoking assessment comments: DENIES ANY FORM OF TOBACCO USE Alcohol intake: current Drinks per week: 6 Alcohol use details: BEER/WINE Substance use: never Substance use type: does not use Lack of Transportation: No Lack of Food: Never True Current Housing: I Have Housing Concerned About Future Housing: No Difficulty Paying Gas/Electric Bills: No Difficulty Paying for Meds: No Currently Unemployed: No Education: Trade/Vocational Certificate Difficulty w/ Childcare or Family Care: No Living arrangements: with family Gender identity (if verbalized by the patient): Female Spiritual care concerns: No Agree to blood products: Yes Exam Narrative: GENERAL: Well-appearing, well-nourished, and in no acute distress.
== END 2023-01-20 11:00 | disposition home or self-care (01) ==
PROVIDERS: Emergency Provider Nurse Practitioner; PCP Family Medicine
DX: J02.9 Acute pharyngitis, unspecified (principal); Z20.822 Contact with and (suspected) exposure to COVID-19; M19.90 Unspecified osteoarthritis, unspecified site; E66.9 Obesity, unspecified; Z68.34 Body mass index [BMI] 34.0-34.9, adult; Z96.653 Presence of artificial knee joint, bilateral
CPT/HCPCS: 71046; 87081; 87426; 87804; 87880; 99213; C9803; G0463

== ENCOUNTER 2023-04-30 09:28 | Outpatient (CLI) | payer OTHER, SELFPAY ==
[2023-04-30 18:45] LABS: Hematocrit 46.3 % (37.0-47.0); Hemoglobin 13.9 g/dL (12.0-15.0); Mean Corpuscular Hemoglobin 28.5 pg (26-34); Mean Corpuscular Volume 95.1 fl (80-100); Mean Platelet Volume 10.6 fl (7.4-10.4); Platelet Count Result 298 k/mm3 (150-375); Red Blood Count 4.87 M/mm3 (4.2-5.4); Red Cell Distribution Width 14.5 % (11.5-14.5)
[2023-04-30 18:52] LABS: Alanine Aminotransferase 20 U/L (6-35); Albumin Level 4.4 g/dL (3.5-5.1); Alkaline Phosphatase 86 U/L (38-126); Anion Gap 5 mmol/L (8-16); Aspartate Amino Transferase 58 U/L (14-36); Bilirubin,Total 0.4 mg/dL (0.2-1.3); Blood Urea Nitrogen 18 mg/dL (7-17); Calcium 9.4 mg/dL (8.4-10.2); Carbon Dioxide 29 mmol/L (22-30); Chloride 106 mmol/L (98-107); Cholesterol 199 mg/dL (0-200); Estimated Glomerular Filt Rate > 60; Glucose 89 mg/dL (65-110); HDL Direct 71 mg/dL; Potassium 4.1 mmol/L (3.4-5.0); Sodium 140 mmol/L (137-145); Triglycerides 60 mg/dL (<150)
[2023-04-30 19:02] LABS: LDL Cholesterol Direct 112 mg/dL
== END 2023-04-30 09:29 | disposition home or self-care (01) ==
LOC: ANHBWCLAB 09:29
PROVIDERS: PCP Family Medicine; Visit Provider Family Medicine
DX: Z00.00 Encounter for general adult medical examination without abnormal findings (principal)
CPT/HCPCS: 36415; 80053; 80061; 85027

== ENCOUNTER 2023-07-30 07:55 | Outpatient (CLI) | payer BC, SELFPAY ==
--- NOTE | ~2023-07-30 | XR_ITS ---
XR abdomen obstructive series Ordering provider: Antonio Stafford MD History: . ALL OVER ABD PAIN X 1 DAY, HX DIVERTICULITIS . Comparison: None. FINDINGS: BOWEL: Nonobstructive bowel gas pattern. ORGANOMEGALY: None. SIGNIFICANT PATHOLOGIC CALCIFICATIONS: None. OTHER: Degenerative changes of the spine. No free air is seen under the diaphragm. Pubic symphysitis. IMPRESSION: NO ACUTE ABDOMINAL FINDINGS. Reviewed, dictated and finalized at location A.
[2023-07-30 19:08] LABS: Alanine Aminotransferase 17 U/L (6-35); Albumin Level 4.6 g/dL (3.5-5.1); Alkaline Phosphatase 73 U/L (38-126); Aspartate Amino Transferase 55 U/L (14-36); Bilirubin,Total 0.8 mg/dL (0.2-1.3)
== END 2023-07-30 07:56 | disposition home or self-care (01) ==
LOC: ANHBWCLAB 07:56
PROVIDERS: PCP Family Medicine; Visit Provider Family Medicine
DX: R10.9 Unspecified abdominal pain (principal)
CPT/HCPCS: 36415; 74019; 80076

== ENCOUNTER 2023-08-18 07:26 | Outpatient (CLI) | payer BC, SELFPAY ==
--- NOTE | ~2023-08-18 | US_ITS ---
EXAMINATION: US right upper quadrant DATE: 08/18/2023 07:44 INDICATION: Elevated liver transaminase levels TECHNIQUE: Multiple grayscale and Doppler ultrasound images of the abdomen were obtained. COMPARISON: None FINDINGS: The pancreatic head and body are normal in appearance. The pancreatic tail is not visualized. Liver has normal echogenicity and contour, with a smooth surface. No liver lesion identified. No intrahepat ic biliary duct dilation suspected. Portal venous flow was seen in the hepatopetal, normal direction and has normal Doppler waveform. The visualized proximal to mid inferior vena cava is normal. There a re a couple large echogenic and shadowing gallstones measuring up to 1.8 cm in the otherwise normal-a ppearing gallbladder. The common bile duct measures 5 mm, which is normal. Sonographic [place] sign wa s reported as negative by the inspector metal can. IMPRESSION: 1. Cholelithiasis. Reviewed, dictated and finalized at location A. IMPRESSION: 1. Cholelithiasis.
== END 2023-08-18 07:27 ==
LOC: MICIMG 07:27
PROVIDERS: PCP Family Medicine; Visit Provider Family Medicine
DX: R74.01 Elevation of levels of liver transaminase levels (principal); K80.20 Calculus of gallbladder without cholecystitis without obstruction
CPT/HCPCS: 76705

== ENCOUNTER 2023-08-18 07:55 | Outpatient (CLI) | payer BC, SELFPAY ==
[2023-08-18 09:15] LABS: Appearance Urine Clear (Clear); Bacteria Urine None Seen /hpf; Bilirubin Urine Negative (Negative); Blood Urine Negative (Negative); Color Urine Yellow (Yellow); Glucose Urine UA Negative (Negative); Ketones Urine Negative (Negative); Leukocyte Esterase Ur 1+ LEU/UL (Negative); Need Manual Microscopic Reviewed; Nitrate Urine Negative (Negative); Non Pathogenic Casts 0-2; Protein Urine Negative (Negative); Specific Grav Ur 1.017 (1.001-1.035); Squamous Epithelial Cell Urine None Seen /hpf (Few); Urobilinogen Urine 0.2 mg/dL (<2.0); WBC Urine 0-5 /hpf (0-3)
[2023-08-18 09:36] LABS: Add Urine Microscopic? YES
[2023-08-18 10:19] LABS: Hepatitis B Surface Antigen Negative (Negative)
[2023-08-18 10:26] LABS: HAV RESULT Negative (Negative); Hepatitis B Core IgM Result Negative (Negative)
[2023-08-18 10:37] LABS: Hepatitis C Virus Antibody Negative (Negative)
== END 2023-08-18 07:56 | disposition home or self-care (01) ==
LOC: ANHLAB 07:56
PROVIDERS: PCP Family Medicine; Visit Provider Family Medicine
DX: R74.01 Elevation of levels of liver transaminase levels (principal); R10.2 Pelvic and perineal pain
CPT/HCPCS: 36415; 80074; 81001

== ENCOUNTER 2023-08-21 08:05 | Outpatient (CLI) | payer BC, SELFPAY ==
[2023-08-21 19:39] LABS: Appearance Urine Clear (Clear); Bacteria Urine None Seen /hpf; Bilirubin Urine Negative (Negative); Blood Urine Negative (Negative); Color Urine Yellow (Yellow); Glucose Urine UA Negative (Negative); Ketones Urine Negative (Negative); Leukocyte Esterase Ur Trace LEU/UL (Negative); Nitrate Urine Negative (Negative); Protein Urine Negative (Negative); RBC Urine 0-2 /hpf (0-2); Specific Grav Ur 1.014 (1.001-1.035); Squamous Epithelial Cell Urine None Seen /hpf (Few); Urobilinogen Urine 0.2 mg/dL (<2.0); WBC Urine 0-5 /hpf (0-3); pH Urine 5.5 (5.0-9.0)
[2023-08-21 19:42] LABS: Add Urine Microscopic? YES
== END 2023-08-21 08:06 | disposition home or self-care (01) ==
PROVIDERS: PCP Family Medicine; Visit Provider Family Medicine
DX: N39.0 Urinary tract infection, site not specified (principal)
CPT/HCPCS: 81001; 87077; 87086; 87088; 87186

== ENCOUNTER 2024-05-06 08:04 | Emergency (ER) | payer BC, SELFPAY ==
[2024-05-06 08:09] VITALS: BP 138/76; PULSE 82; RESP 20; TEMP 36.7; O2SAT 95
--- OUTSIDE RECORDS SUMMARY | 2024-05-06 08:15 | XMS_ITS | CONTINUITY OF CARE DOCUMENT ---
Author Name bolivar lutz Address Unknown Organization [facility] Address [address] [place] [address] [address] [place] [address] Phone [phone] Care Team Providers Care Hvac R Tech Name Role Phone Piotr COOK, Fredy Unavailable ELLA ADDISON MD Unavailable ELLA ADDISON MD Unavailable [phone] INSURANCE PROVIDERS Payer name Policy type / Coverage type [place] [employer] [facility] [employer] [id number]
--- OUTSIDE RECORDS SUMMARY | 2024-05-06 08:15 | XMS_ITS | Encounter Summary ---
Author Organization [facility] Address [address] [place] [address] Phone Care Team Providers Care Patient Financial Counselor Name Role Phone Viky Girard MD Primary Care Provider [phone] Antonio Stafford MD Primary Care Provider [phone] Encounter Details Date Type Department Care Team (Late st Contact Info) Description 06/09/2020 Orders Only [facility] [address] [place] [phone] Viky Girard MD [address] [place] [address] Social History Tobacco Use Types Packs/Day Years Used Date Smoking Tobacco: Never Smokeless Tobacco: Never Alcohol Use Standard Drinks/Week Comments Yes 0 (1 standard drink = 0.6 oz pur e alcohol) 2-3xs a week PHQ-2 Answer Date Recorded PHQ-2 Score 0 10/09/2018 Comments No Sex and Gender Information Value Date Recorded Sex Assigned at Not on file 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 Author CCM Chronic Pain Care Plan Chronic Care Management Alina Olivas RN Note: Problem: Chronic Pain Goals: 1. Minimize further functional decline 2. Maximize quality of life 3. Control pain Strategies: - Activity/exercise program recommendation - Conservative stepwise pain medicine strategy with multi-disciplinary approach - Recommend healthy lifestyle strategies and compensatory methods as needed documented as of this encounter Procedures Procedure Name Priority Date/Time Associated Diagnosis Comments SCAN - RADIOLOGY/IMAGING 06/09/2020 documented in this encounter Results * SCAN - RADIOLOGY/IMAGING (06/09/2020) Anatomical Region Laterality Modality Other Viky Girard MD Final Resu lt documented in this encounter Visit Diagnoses Not on filedocumented in this encounter Additional Health Concerns Infection Onset Date Last Indicated Resolved Time COVID: Recovered Comment:Added based on recent COVID infection. 02/18/2020 02/20/2020 06/17/2020 3:05 AM C DT documented as of this encounter Care Teams Patient Financial Counselor Relationship Specialty Start Date End Date Viky Girard MD PCP - General 05/19/16 04/21/21 Antonio Stafford MD PCP - General 04/22/21 documented as of this encounter
--- OUTSIDE RECORDS SUMMARY | 2024-05-06 08:15 | XMS_ITS | Referral Summary ---
Author Organization [facility] Medical Office Building B Address [address] [place] [phone] Care Team Providers Care Social Media Specialist Name Role Phone Antonio Stafford MD Primary Care Provider [phone] [phone] Encounters Date Type Department Care Team Description 03/28/2024 11:59 PM ROLLWAY WORKER Anesthesia Event [facility] [address] [place] [id number] Chelsea Decker NP 04/07/2024 Telephone [facility] Orthopaedic Surgery [address] [place] [address] [address]nd [address] [place] [phone] America Tinoco CMA 03/24/2024 10:11 AM ROLLWAY WORKER - 03/24/2024 11:59 PM ROLLWAY WORKER Hospital Encounter [facility] [address] [place] [phone] Roscoe Mosley MD Pain in left foot Discharge Disposition: Discharge to home or self care 03/24/2024 8:00 AM ROLLWAY WORKER Office Visit [facility] Orthopaedic Surgery [address] [place] [address] [address] [place] [phone] Roscoe Mosley MD Pain in left foot (Primary Dx) from Last 3 Months Allergies No known active allergies Medications acetaminophen-c affeine 500-65 mg tabletIndicatio ns:Pain Take 2 tablets by mouth 2 (two) times a day as needed Active traMADoL (ULTRAM) 50 mg tablet Take 1 tablet (50 mg total) by mouth every 6 (six) hours as needed for pain [address] (CYMBALTA) 60 mg capsuleIndicati ons:Neuropathic Pain Take 1 capsule (60 mg total) by mouth every morning 1 Active ibuprofen 200 mg tab/capIndicati ons:Anti-inflam matory Take 1 tablet/capsule (200 mg total) by mouth every 8 (eight) hours as needed for pain or headaches Active acetaminophen (TYLENOL) 500 mg tablet Take 2 tablets (1,000 mg total) by mouth every 6 (six) hours as needed for pain Active Active Problems Problem Noted Date Diagnosed Date Neuroma 12/25/2023 Left lower quadrant abdominal pain 10/18/2020 Assessment & Plan (11/03/2020 12:54 PM CDT): Pt reports that the pain in her left lower abdomen has gradually gotten worse over the past few days along with left lower back pain. She has also developed nausea with more frequent bowel movements that she describes are not what she would consider diarrhea. She denies fever, chills, body aches or vomiting. She reports a hx of diverticulitis, though I cannot see where this has been documented, but I can see diverticulosis was documented in June of 2020. I will order a CT scan today of abd/pelvis with contrast and stat hold and call to me. Possible diverticulitis--if so we will send out appropriate antibiotics and f/u with her in 1 week. Assessment & Plan (10/18/2020 3:58 PM CDT): Pt reports that she began experiencing this pain at the beginning of summer, and she noticed it while she was bent over gardening. She reports that she experiences a sharp shooting pain in her left lower abdomen only when she is bending over like with gardening. Otherwise she reports no symptoms. We will get a sonogram today. Perhaps she has a cyst on her ovary that is causing pain only when she is bending. Or perhaps this is musculoskeletal and she has pulled an abdominal muscle while gardening, and is continuing to strain this muscle with continued gardening and never gets to fully heal. We can always refer to Dr. Kelley who sees her for gyne if we feel she would need a possible gyne exam and/or pelvic sonogram. Pt is in agreement. Diverticulosis 06/21/2020 COVID-19 virus detected 02/04/2020 Obesity (BMI 30-39.9) 10/01/2019 Chronic knee pain after tota l replacement of right knee joint 10/15/2018 Osteoarthritis of left midfoot 09/04/2018 Osteopenia of hip 08/14/2018 Overview (08/14/2018): DEXA bone density July 2018 (+) osteopenia, advise vitamin-D and dietary calcium The mean bone mineral content of the lumbar spine is 1.066 g/cm2. The T-score is 0.2 consistent with normal bone mineral density. The mean bone mineral content of the left hip is 0.980 g/cm2. The neck T-score is -1.0. The total T-score is 0.3. This is consistent with normal bone mineral density. History of total bilateral knee replacement 03/23 Overview (04/12/2018): Added automatically from request for surgery [id number] Arthritis of back 05/08/2017 Overview (05/24/2020): 8 mm L3-4 spondylolisthesis April 2020 x-rays at [facility] Hx of adenomatous colonic polyps 07/05/2013 Overview (06/21/2020): Adenomatous colon polyp, colonoscopy test -20 [address] [place] [address]. Betts Resolved Problems Problem Noted Date Diagnosed Date Resolved Date Sleep disorder breathing 07/30/201904/2020 Overview (07/30/2019): Evaluated by Dr. Trinidad September 2018 A P 1.Hypersomnia: Primary symptoms. Sleep study undertaken recently does not reveal evidence of any significant sleep fragmentation of sleep disorder breathing talk on for the patient's symptoms. Given the severely elevated [place] Sleepiness Scale score of 15, recommend a multiple sleep latency testing. 3. Obesity: The effects of obesity obstructive sleep apnea syndrome and other morbidities was discussed. Recommended diet and exercise in losing weight. Patient verbalizes an understanding. Diverticulitis of large inte marsha without perforation or abscess without bleeding 07/23/2019 06/21/2020 Neuralgia 10/15/2018 06/21/2020 Chronic rhinitis 05/08/2017 06/21/2020 Migraine with aura 04/03/2014 Overview (05/25/2016): Migraine headache with aura Benign hypertension 02/27/2014 04/23/19 18 Overview (05/25/2016): Benign hypertension Metatarsalgia of left foot 07/05/2013 0 06/21/2020 Overview (05/24/2016): Foot pain, right Stress headaches 07/05/2013 06/21/2020 Overview (05/24/2016): Stress headaches Pain due to total right knee replacement 03/17/2013 06/21/2020 Overview (05/24/2016): Knee pain, right Fatigue 03/17/2013 06/21/2020 Overview (05/27/2016): Tiredness Immunizations Immunization Administration Dates Next Due Influenza, Quadrivalent, Spl it, Preservative Free, Intramuscular 12/01/2019,11/25/2017 Influenza, Split 11/19/2009 Influenza, Trivalent, IM (MDV) 12/20/2016,2014 Influenza, Unspecified 11/19/2018,11/26/2017 MMR 06/22/2018 Pfizer SARS-CoV-2 Monovalent Vaccination (12+ Yrs) PURPLE 06/04/2020,05/07/2020 Tdap 06/05/2011 ZOSTER Recombinant 02/16/2019,12/16/2018 Social History Tobacco Use Types Packs/Day Years Used Date Smoking Tobacco: Never Smokeless Tobacco: Never Tobacco Cessation:Counseling Given: Yes Alcohol Use Standard Drinks/Week Comments Yes 0 (1 standard drink = 0.6 oz pur e alcohol) 2-3xs a week AUDIT-C Answer Date Recorded Q1: How often do you have a drink containing alc ohol? 2-3 times a week 03/17/2024 Q2: How many drinks containi ng alcohol do you have on a typical day when you are drinking? 3 or 4 03/17/2024 Q3: How often do you have si x or more drinks on one occasion? 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 Not on file Not on file Not on fi le Last Filed Vital Signs Vital Sign Reading Time Taken Comments Blood Pressure 132/84 11/03/2020 10:11 AM CDT Pulse 78 11/03/2020 10:11 AM CDT Temperature 36.3 C (97.3 F) 11/03/2020 10:11 AM CDT Respiratory Rate 18 11/03/2020 10:11 AM CDT Oxygen Saturation 99% 11/03/2020 10:11 AM CDT Inhaled Oxygen Concentration - - Weight 104.3 kg (230 lb) 03/17/2024 1:14 PM ROLLWAY WORKER Height 175.3 cm (5' 9 ) 03/17/2024 1:14 PM ROLLWAY WORKER Body Mass Index 33.97 03/17/2024 1:14 PM ROLLWAY WORKER Plan of Treatment Not on file Goals Goal Patient Goal Type Associated Problems Recent Progress Patient-Stated? Author CCM Chronic Pain Care Plan Chronic Care Management Alina Olivas, RN Note: Problem: Chronic Pain Goals: 1. Minimize further functional decline 2. Maximize quality of life 3. Control pain Strategies: - Activity/exercise program recommendation - Conservative stepwise pain medicine strategy with multi-disciplinary approach - Recommend healthy lifestyle strategies and compensatory methods as needed Medical Devices Implanted Type Area Oil Field Caser Device Identifier Shelf Expiration Date Model / Serial / Lot [employer] [id number] Attune Cementless Rotate Platform Knee 5 Baseplate Tibial - [id number] Implanted:Qty: 1 on 05/08/2018 by Shiraz No MD at [facility] [employer] 06/19/2027 [id number] / / [id number] [employer] [id number] Attune Cruciate Retain Cementless Knee Right 5 Component Femoral - [id number] Implanted:Qty: 1 on 05/08/2018 by Shiraz No MD at [facility] [employer] 09/19/2027 [id number] / / [id number] [employer] [id number] [place]os R+G High Viscosity Cement Bone Gentamicin Arthroplasty - [id number] Implanted:Qty: 1 on 05/08/2018 by Shiraz No MD at [facility] [employer] 09/18/2020 [id number] / / [id number] [employer] [id number] Attune 38mm Cemented Medialize Knee Dome Patellar Aox Sterile - [id number] Implanted:Qty: 1 on 05/08/2018 by Shiraz No MD at [facility] Right: Knee [employer] 12/19/2022 [id number] / / [id number] [employer] [id number] Attune 6mm Cruciate Retaining Rotate Platform Knee 5 Insert - [id number] Implanted:Qty: 1 on 05/08/2018 by Shiraz No MD at [facility] Right: Knee [employer] 10/19/2021 [id number] / / [id number] Procedures Procedure Name Priority Date/Time Associated Diagnosis Comments XR FOOT LEFT 3 OR MORE VIEWS Schedule Routine, Read Routine (OP Routine) 03/24/2024 10:16 AM ROLLWAY WORKER Pain in left foot SCREENING MAMMOGRAM 2D BILATERAL Schedule Routine, Read Routine (OP Routine) 10/09/2019 8:15 AM CDT Encounter for screening for malignant neoplasm of breast HEPATITIS C ANTIBODY Routine 04/26/2018 9:30 AM ROLLWAY WORKER Preoperative testing THINPAP, REFLEX HPV ALL PTH Routine 08/14/2012 1:06 PM CDT from Last 3 Months or Most Recently Relevant to Health Maintenance Results * XR Foot Left 3+ View (03/24/2024 10:16 AM ROLLWAY WORKER) Anatomical Region Laterality Modality Lower Extremities, Foot Left Computed Radiography 03/24/2024 12:0 8 PM ROLLWAY WORKER Impressions 03/24/2024 12:08 PM ROLLWAY WORKER 1. Unchanged polyarticular osteoarthritis of the left foot Electronically signed by: Arnol Hoyt MD Narrative 03/24/2024 12:08 PM ROLLWAY WORKER EXAMINATION: XR FOOT LEFT 3 OR MORE VIEWS HISTORY: Left foot pain, known neuroma FINDINGS: 3 view weightbearing examination of the left foot is compared to MRI 11/26/2023 and radiographs 08/29/2022. No acute fracture or dislocation. Mild pes cavus is unchanged. Mild 1st metatarsophalangeal and moderate 1st tarsometatarsal joint osteoarthritis. A distal Achilles enthesophyte and plantar calcaneal spur are present. There is a cross over deformity of the 1st and 2nd toes. Procedure Note Tegan Hoyt MD - 03/24/2024 EXAMINATION: XR FOOT LEFT 3 OR MORE VIEWS HISTORY: Left foot pain, known neuroma FINDINGS: 3 view weightbearing examination of the left foot is compared to MRI 11/26/2023 and radiographs 08/29/2022. No acute fracture or dislocation. Mild pes cavus is unchanged. Mild 1st metatarsophalangeal and moderate 1st tarsometatarsal joint osteoarthritis. A distal Achilles enthesophyte and plantar calcaneal spur are present. There is a cross over deformity of the 1st and 2nd toes. IMPRESSION: 1. Unchanged polyarticular osteoarthritis of the left foot Electronically signed by: Arnol Hoyt MD us Roscoe Mosley MD IMG XR PROCEDURES Meaghan l Result * Screening Mammogram 2D Bilateral (10/09/2019 8:15 AM CDT) Anatomical Region Laterality Modality Breast Bilateral Mammography Narrative 10/09/2019 1:35 PM CDT BILATERAL DIGITAL MAMMOGRAPHY The present examination has been compared to prior imaging studies dated 09 August 2018 Mammography Findings CAD (computer-aided detection) software was utilized. The breasts are heterogeneously dense. This may lower the sensitivity of mammography. No masses, significant calcifications or other abnormalities are seen. Impression There is no mammographic evidence of malignancy. Screening mammogram in 1 year is recommended. BI-RADS Category 1: Negative PATIENT LETTER SENT Kathryn Kelley MD IMG MAMMO PROCEDURES Final Result * Hepatitis C antibody (04/26/2018 9:30 AM ROLLWAY WORKER) Hep C Ab Negative Negative ELKE HERRERA ([place]) Comment:Testing performed by : [facility], [address] [place] [address], [place]., [address] Blood specimen (specimen) 04/26/2018 9:30 AM ROLLWAY WORKER 04/26/2018 4:11 PM ROLLWAY WORKER Narrative ELKE HERRERA ([place]) - 04/26/2018 5:17 PM ROLLWAY WORKER us Shiraz No MD LAB MICROBIOLOGY - GENERAL O RDERABLES Final Result ELKE SHARON ([place]) 1 [facility] Department of Laboratories [place], [place] [id number] * ThinPrep Pap, Reflex HPV all pth (08/14/2012 1:06 PM CDT) SOURCE: SEE NOTE [facility] HISTORICAL RESULTS Comment:Vagina CLINICAL INFORMATION: SEE NOTE [facility] RESULTS Comment:Information not prov ided LMP SEE NOTE [facility] RESULTS Comment:Information not prov ided Previous Pap SEE NOTE [facility] RESULTS Comment:Information not prov ided Prev. Bx SEE NOTE [facility] RESULTS Comment:Information not prov ided Pap, specimen adequacy SEE NOTE [facility] RESULTS Comment:SATISFACTORY FOR AMADOU LUATION HPV interp SEE NOTE [facility]ISTORICAL RESULTS Comment:Negative for intraep ithelial lesion or malignancy. Lactobacillus species SEE NOTE [facility] HISTORICAL RESULTS Comment: This Pap test has been evaluated with computer assisted technology. Based on the cytology result, reflex High Risk HPV DNA testing was not performed. 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 08/14/2012 1:06 PM CDT Viky Girard MD LAB PATHOLOGY ORDERABLES F inal Result [facility] HISTORICAL RESULTS from Last 3 Months or Most Recently Relevant to Health Maintenance Insurance [facility] PLUS [facility] Advance Directives For more information, please contact: [phone] * Full Code (Latest Code Status on File) Date Activated Date Inactivated Comments 05/08/2018 6:56 PM 05/09/2018 8:46 PM Care Teams Social Media Specialist Relationship Specialty Start Date End Date Antonio Stafford MD PCP - General 04/22/21
--- OUTSIDE RECORDS SUMMARY | 2024-05-06 08:15 | XMS_ITS | Encounter Summary ---
Author Organization [facility] Address [address] [place] [address] Phone Care Team Providers Care Tow Car Driver Name Role Phone Viky Girard MD Primary Care Provider [phone]- [phone] Antonio Stafford MD Primary Care Provider [phone] Encounter Details Date Type Department Care Team (Late st Contact Info) Description 06/25/2017 Orders Only [facility] [address] [place] [phone] Viky Girard MD [address] [place] [address] Social History Tobacco Use Types Packs/Day Years Used Date Smoking Tobacco: Never Smokeless Tobacco: Never Alcohol Use Standard Drinks/Week Comments Yes 0 (1 standard drink = 0.6 oz pur e alcohol) Comments No Sex and Gender Information Value Date Recorded Sex Assigned at Not on file Legal Sex Female 2:48 AM ASSISTANT FOOTBALL COACH Gender Identity Not on file Sexual Orientation Not on file 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 file Not on file Not on fi le documented as of this encounter Plan of Treatment Not on file documented as of this encounter Procedures Procedure Name Priority Date/Time Associated Diagnosis Comments SCAN - RADIOLOGY/IMAGING 06/25/2017 11:37 AM CDT documented in this encounter Results * SCAN - RADIOLOGY/IMAGING (06/25/2017 11:37 AM CDT) Anatomical Region Laterality Modality Other us Viky Girard MD Final Resu lt documented in this encounter Visit Diagnoses Not on filedocumented in this encounter Additional Health Concerns Infection Onset Date Last Indicated Resolved Time COVID: Suspected 02/04/2020 02/04/2020 02/06/2020 8:46 AM ASSISTANT FOOTBALL COACH COVID19 02/04/2020 02/04/2020 02/18/2020 3:07 AM ASSISTANT FOOTBALL COACH COVID: Recovered Comment:Added based on recent COVID infection. 02/18/2020 02/20/2020 06/17/2020 3:05 AM C DT documented as of this encounter Care Teams Tow Car Driver Relationship Specialty Start Date End Date Viky Girard MD PCP - General 05/19/16 04/21/21 Antonio Stafford MD PCP - General 04/22/21 documented as of this encounter
--- OUTSIDE RECORDS SUMMARY | 2024-05-06 08:15 | XMS_ITS | Encounter Summary ---
Author Organization [facility] Healthcare Address [address] [place] [address] Care Team Providers Care Nuclear Plant Instrument Technician Name Role Phone Viky Girard MD Primary Care Provider [phone]- [phone] Antonio Stafford MD Primary Care Provider [phone] -[phone] Reason for Visit * Reason Onset Date Comments Prior Auth 10/16/2018 Diclofenac Encounter Details Date Type Department Care Team (Late st Contact Info) Description 10/16/2018 Telephone [facility] [address] [facility] [address] [place] [address] [place] [address] [place] [address], [place] [address] Prior Auth (Diclofenac) Social History Tobacco Use Types Packs/Day Years Used Date Smoking Tobacco: Never Smokeless Tobacco: Never Alcohol Use Standard Drinks/Week Comments Yes 0 (1 standard drink = 0.6 oz pur e alcohol) 2-3xs a week PHQ-2 Answer Date Recorded PHQ-2 Score 0 10/09/2018 Comments No Sex and Gender Information Value Date Recorded Sex Assigned at Not on file Legal Sex Female 2:48 AM 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 02/18/2020 02/20/2020 06/17/2020 3:05 AM C DT documented as of this encounter Care Teams Nuclear Plant Instrument Technician Relationship Specialty Start Date End Date Viky Girard MD PCP - General 05/19/16 04/21/21 Antonio Stafford MD PCP - General 04/22/21 documented as of this encounter
--- OUTSIDE RECORDS SUMMARY | 2024-05-06 08:15 | XMS_ITS | Encounter Summary ---
Author Organization [facility] Address [address] [facility] [address] [place] [address] Phone Care Team Providers Care Environmental Compliance Engineer Name Role Phone Viky Girard MD Primary Care Provider [phone]- [phone] Antonio Stafford MD Primary Care Provider [phone] -[phone] Encounter Details Date Type Department Care Team (Late st Contact Info) Description 04/13/2017 Orders Only [facility] ProviderKai MD [facility] [place] [address] Social History Tobacco Use Types Packs/Day Years Used Date Smoking Tobacco: Never Alcohol Use Standard Drinks/Week Comments Yes 0 (1 standard drink = 0.6 oz pur e alcohol) Comments Unknown Sex and Gender Information Value Date Recorded Sex Assigned at Not on file Legal Sex Female 2:48 AM OUTBOUND TELEMARKETER Gender Identity Not on file Sexual Orientation Not on file documented as of this encounter Plan of Treatment Not on file documented as of this encounter Procedures Procedure Name Priority Date/Time Associated Diagnosis Comments DISCHARGE LABORATORY CUMULATIVE REPORT 04/13/2017 12:00 AM OUTBOUND TELEMARKETER documented in this encounter Results * DISCHARGE LABORATORY CUMULATIVE REPORT (04/13/2017 12:00 AM OUTBOUND TELEMARKETER) Narrative 04/13/2017 12:00 AM OUTBOUND TELEMARKETER Ordered by an unspecified provider. us Historical Provider LAB BLOOD ORDERABLES Meaghan l Result documented in this encounter Visit Diagnoses Not on filedocumented in this encounter Additional Health Concerns Infection Onset Date Last Indicated Resolved Time COVID: Suspected 02/04/2020 02/04/2020 02/06/2020 8:46 AM OUTBOUND TELEMARKETER COVID19 02/04/2020 02/04/2020 02/18/2020 3:07 AM OUTBOUND TELEMARKETER COVID: Recovered Comment:Added based on recent COVID infection. 02/18/2020 02/20/2020 06/17/2020 3:05 AM C DT documented as of this encounter Care Teams Environmental Compliance Engineer Relationship Specialty Start Date End Date Viky Girard MD PCP - General 05/19/16 04/21/21 Antonio Stafford MD PCP - General 04/22/21 documented as of this encounter
--- OUTSIDE RECORDS SUMMARY | 2024-05-06 08:15 | XMS_ITS | Clinical Summary ---
Author Organization [facility] Address [address] [place] [address] Care Team Providers Care Distribution Driver Name Role Phone Unavailable Primary Care Provider Unavailabl e Source Comments [facility],non-owned Affiliates and Associated Physician Practices is amultiple site organization consisting of ambulatory clinics and hospital sitesin [place], [place], [place] and [place]. This disclosure is being madepursuant to the Care Everywhere program and may not contain all information available regarding this patient. Last updated 17.[facility] [employer] Social History Tobacco Use Types Packs/Day Years Used Date Smoking Tobacco: Never Assessed Sex and Gender Information Value Date Recorded Sex Assigned at Not on file Gender Identity Not on file Sexual Orientation Not on file Plan of Treatment Health Maintenance Due Date Last Done Comments COLOGUARD (AGES 45-75) - COLON CA SCREENING 1962 COLON MONITORING 1962 COLONOSCOPY - COLON CA SCREENING 1962 CT COLONOGRAPHY - COLON CA SCREENING 1962 Colorectal Cancer Screening 1962 FIT - COLON CA SCREENING 1962 FLEX SIG - COLON CA SCREENING 1962 LIPID TESTING 1962 MAMMOGRAM 1962 PAP SMEAR 1962 HIV SCREENING 1977 HEPATITIS C SCREENING 11/28/1980 DTAP/TDAP/TD VACCINES (1 - Tdap) 1981 PNEUMOCOCCAL VACCINE 50+ (1 of 1 - PCV) 2012 ZOSTER VACCINE (1 of 2) 2012 COVID-19 VACCINE (1 - 2023- season) 2023 INFLUENZA VACCINE (#1) 2023 9, 11/26/2017, 11/25/2017, Additional history exists DEPRESSION SCREENING 02/20/2024 Respiratory Syncytial Virus (RSV) Vaccine Pt: or over 60 yrs (1 - 1-dose 75+ series) 2037 HEPATITIS B VACCINE Aged Out No longe r eligible based on patient's age to complete this topic HIB VACCINE Aged Out No longer eligi ble based on patient's age to complete this topic HPV VACCINE Aged Out No longer eligi ble based on patient's age to complete this topic MENINGOCOCCAL (Group B) VACCINE SHARED DECISION-MAKING Aged Out No longer eligible based on patient's age to complete this topic MENINGOCOCCAL GROUPS A/C/Y/W VACCINE Aged Out No longer eligible based on patient's age to complete this topic PNEUMOCOCCAL VACCINE Aged Out No long er eligible based on patient's age to complete this topic
--- OUTSIDE RECORDS SUMMARY | 2024-05-06 08:15 | XMS_ITS | Encounter Summary ---
Author Organization [facility] Healthcare Address [address] [place] [address] Care Team Providers Care Monument Mason Name Role Phone Viky Girard MD Primary Care Provider [phone] Antonio Stafford MD Primary Care Provider [phone] Reason for Visit * Reason Onset Date Comments Prior Auth 11/06/2018 Diclofenac 1% Ge l Encounter Details Date Type Department Care Team (Late st Contact Info) Description 11/06/2018 Telephone [facility] [place] [facility] [address] [facility] [address] [place], [place] [id number] [place] [address] [place] [address], [place] [id number] Prior Auth (Diclofenac 1% Gel) Social History Tobacco Use Types Packs/Day Years Used Date Smoking Tobacco: Never Smokeless Tobacco: Never Alcohol Use Standard Drinks/Week Comments Yes 0 (1 standard drink = 0.6 oz pur e alcohol) 2-3xs a week PHQ-2 Answer Date Recorded PHQ-2 Score 0 10/09/2018 Comments No Sex and Gender Information Value Date Recorded Sex Assigned at Not on file Legal Sex Female 2:48 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 02/18/2020 02/20/2020 06/17/2020 3:05 AM C DT documented as of this encounter Care Teams Monument Mason Relationship Specialty Start Date End Date Viky Girard MD PCP - General 05/19/16 04/21/21 Antonio Stafford MD PCP - General 04/22/21 documented as of this encounter
--- OUTSIDE RECORDS SUMMARY | 2024-05-06 08:15 | XMS_ITS | Clinical Summary ---
Author Organization [facility] Address [address] [place] [address] Care Team Providers Care Firewall Administrator Name Role Phone Antonio Stafford MD Primary Care Provider [phone] Allergies No known active allergies Medications acetaminophen-c [...] (04/12/2018): Added automatically from request for surgery [id number] Arthritis of back 05/08/2017 Overview (05/24/2020): 8 mm L3-4 spondylolisthesis April 2020 x-rays at [facility] Hx of adenomatous colonic polyps 07/05/2013 Overview (06/21/2020): Adenomatous colon polyp, colonoscopy test - [address] Betts Resolved Problems Problem Noted Date Diagnosed Date Resolved Date Sleep disorder breathing 07/30/201904/2020 Overview (07/30/2019): Evaluated by Dr. Trinidad September 2018 A P 1.Hypersomnia: Primary symptoms. Sleep study undertaken recently does not reveal evidence of any significant sleep fragmentation of sleep disorder breathing talk on for the patient's symptoms. Given the severely elevated Olmsted Sleepiness Scale score of 15, recommend a [...] right Fatigue 03/17/2013 06/21/2020 Overview (05/27/2016): Tiredness Encounters Date Type Department Care Team Description 04/07/2024 Telephone [facility] Orthopaedic Surgery [address] [place] [address] [address]nd [address] [place] [address] America Tinoco CMA 03/28/2024 11:59 PM RECORD PRESSMAN Anesthesia Event [facility] [address] [place] [address] Chelsea Decker NP 03/24/2024 10:11 AM RECORD PRESSMAN - 03/24/2024 11:59 PM RECORD PRESSMAN Hospital Encounter [facility] [address] [place] [address] Roscoe Mosley MD Pain in left foot Discharge Disposition: Discharge to home or self care 03/24/2024 8:00 AM RECORD PRESSMAN Office Visit [facility] Orthopaedic Surgery [address] [place] [address] 2nd [address] [place] [address] Roscoe Mosley MD Pain in left foot (Primary Dx) from Last 3 Months Immunizations Immunization Administration Dates Next Due Influenza, Quadrivalent, Spl it, Preservative Free, Intramuscular 12/01/2019,11/25/2017 Influenza, Split 11/19/2009 Influenza, Trivalent, IM (MDV) 12/20/2016,2014 Influenza, Unspecified 11/19/2018,11/26/2017 MMR 06/22/2018 Pfizer SARS-CoV-2 Monovalent Vaccination (12+ Yrs) PURPLE 06/04/2020,05/07/2020 Tdap 06/05/2011 ZOSTER Recombinant 02/16/2019,12/16/2018 Surgical History Surgery Date Site/Laterality Comments KNEE ARTHROSCOPY 02/19/2009 - 02/18/2010 FOOT SURGERY [id number] Right tarsal tunnel release, nerve entrapment release, etc. HAND SURGERY 02/20/1984 - 02/18/1985 Right torn ligament PARTIAL KNEE ARTHROPLASTY 02/19/2013 - 02/18/2014 POPLITEAL SYNOVIAL CYST EXCISION 02/19/2013 - 02/18/2014 PELVIC FLOOR REPAIR 02/19/2007 - 02/19/2008 pelvic prolapse and CRISPIN CERVICAL CONE BIOPSY 02/19/1990 - 02/18/1991 severe cervical dysplasia TOTAL VAGINAL HYSTERECTOMY 02/19/2001 - 02/18/2002 menorrhagia DILATION AND CURETTAGE OF UTERUS 02/19/2001 - 02/18/2002 menorrhagia REPLACEMENT TOTAL KNEE 05/08/[address] Begum right total knee replacement removal of partial knee components COLONOSCOPY 03/01/2015 Dr. Betts (-) sigmoid diverticulosis due in 10 years BLADDER REPAIR 02/19/2007 - 02/19/2008 CERVIX LESION DESTRUCTION 02/19/1989 - 02/18/1990 COLONOSCOPY 10/07/2019 (-) Dr. Betts [facility] due in 5 years Medical History Medical History Date Comments Hx of gonorrhea 1984 Hypertension Mitral valve prolapse Frequent headaches Osteoarthritis Chronic pain Wears glasses Headache, tension type, chronic Depression Knee pain, bilateral Foot pain, bilateral Chronic rhinitis 05/08/2017 Migraine with aura 04/03/2014 Migraine head ache with aura Pain due to total right knee replacement 03/17/2013 Knee pain, right Sleep disorder breathing 07/30/[address] Trinidad September 2018 A P 1.Hypersomnia: Primary symptoms. Sleep study undertaken recently does not reveal evidence of any significant sleep fragmentation of sleep disorder breathing talk on for the patient's symptoms. Given the severely elevated Olmsted Sleepiness Scale score of 15, recommend a multiple sleep latency testing. 3. Obesity: The effects of obesity obstructive sleep a Diverticulitis of large inte marsha without perforation or abscess without bleeding 07/23/2019 Family History Medical History Relation Name Comments Atrial fibrillation Brother 1 Héctor Coronary artery disease Brother 1 Héctor Bladder Cancer Brother 2 Geovanny Diabetes Brother 2 Geovanny Atrial fibrillation Brother 3 Trey Pacemaker Brother 3 Trey Prostate cancer Brother 3 Trey ALS Father COD at age 65 Emphysema Father Stroke Maternal Grandfather Jose Breast cancer Maternal cousin Nohemi Arthritis Mother Cancer Mother Colon cancer Mother Other Mother in her sle ep, ? 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 file Not on file Not on fi le Obstetrics History Para Term AB IAB SAB Ectopic Multiple Livin g Live Births 3 2 2 0 1 1 0 0 0 2 2 Date Outcome GA Total Labor Labor/2nd/3rd Weight Sex Type Anes PTL Chantell A1 A5 Name Clin Term Term IAB Last Filed Vital Signs Vital Sign Reading Time Taken Comments Blood Pressure 132/84 11/03/2020 10:11 AM CDT Pulse 78 11/03/2020 10:11 AM CDT Temperature 36.3 C (97.3 F) 11/03/2020 10:11 AM CDT Respiratory Rate 18 11/03/2020 10:11 AM CDT Oxygen Saturation 99% 11/03/2020 10:11 AM CDT Inhaled Oxygen Concentration - - Weight 104.3 kg (230 lb) 03/17/2024 1:14 PM RECORD PRESSMAN Height 175.3 cm (5' 9 ) 03/17/2024 1:14 PM RECORD PRESSMAN Body Mass Index 33.97 03/17/2024 1:14 PM RECORD PRESSMAN Plan of Treatment Health Maintenance Due Date Last Done Comments Colon Cancer Screening-Colonoscopy 1962 Hepatitis B Screening 1980 Breast Cancer Screening-Mammogram 10/08/2020 10/09/2019, 08/09/2018, 06/07/2017 Depression Screening 06/21/2021 06/21/2020, 04/12/19 19 Regular Well Visit/Exam 18-64 06/21/2021 06/21/2020, 10/01/2019, 04/03/2018, Additional history exists Covid-19 Vaccine ( season) 2023 12/24/2021, 12/24/2020, 06/04/2020, Additional history exists Influenza Vaccine (#1) 2023 3, 12/02/2021, 11/23/2020, Additional history exists DTaP/Tdap/Td Vaccine (3 - Td or Tdap) 04/24/2032 04/24/2022, 06/05/2011 Cervical Cancer Screening Discontinued 08/14/2012 Hepatitis C Screening Completed 04/26/2018 Zoster Vaccine Completed 02/16/2019, 12/16/2018 Pneumococcal vaccine <65 Aged Out No longer eligible based on patient's age to complete this topic Goals Goal Patient Goal Type Associated Problems [...] as needed Medical Devices Implanted Type Area Client Engagement Specialist Device Identifier Shelf Expiration Date Model / Serial / Lot [employer] [id number] Attune Cementless Rotate Platform Knee 5 Baseplate Tibial - [id number] Implanted:Qty: 1 on 05/08/2018 by Shiraz No MD at [facility] [employer] 06/19/2027 [id number] / / [id number] [employer] [id number] Attune Cruciate Retain Cementless Knee Right 5 Component Femoral - [id number] Implanted:Qty: 1 on 05/08/2018 by Shiraz No MD at [facility] [employer] 09/19/2027 [id number] / / [id number] [employer] [id number] Palacos R+G High Viscosity Cement Bone Gentamicin Arthroplasty - [id number] Implanted:Qty: 1 on 05/08/2018 by Shiraz No MD at [facility] [employer] 09/18/2020 [id number] / / [id number] [employer] [id number] Attune 38mm Cemented Medialize Knee Dome Patellar Aox Sterile - [id number] Implanted:Qty: 1 on 05/08/2018 by Shiraz No MD at [facility] Right: Knee [employer] 12/19/2022 [id number] / / [id number] [employer] [id number] Attune 6mm Cruciate Retaining Rotate Platform Knee 5 Insert - [id number] Implanted:Qty: 1 on 05/08/2018 by Shiraz No MD at [facility] Right: Knee [employer] 10/19/2021 [id number] / / [id number] Procedures Procedure Name Priority Date/Time Associated Diagnosis Comments XR FOOT LEFT 3 OR MORE VIEWS Schedule Routine, Read Routine (OP Routine) 03/24/2024 10:16 AM RECORD PRESSMAN Pain in left foot SCREENING MAMMOGRAM 2D BILATERAL Schedule Routine, Read Routine (OP Routine) 10/09/2019 8:15 AM CDT Encounter for screening for malignant neoplasm of breast HEPATITIS C ANTIBODY Routine 04/26/2018 9:30 AM RECORD PRESSMAN Preoperative testing THINPAP, REFLEX HPV ALL PTH Routine 08/14/2012 1:06 PM CDT from Last 3 Months or Most Recently Relevant to Health Maintenance Results * XR Foot Left 3+ View (03/24/2024 10:16 AM RECORD PRESSMAN) Anatomical Region Laterality Modality Lower Extremities, Foot Left Computed Radiography 03/24/2024 12:0 8 PM RECORD PRESSMAN Impressions 03/24/2024 12:08 PM RECORD PRESSMAN 1. Unchanged polyarticular osteoarthritis of the left foot Electronically signed by: Arnol Hoyt MD Narrative 03/24/2024 12:08 PM RECORD PRESSMAN EXAMINATION: XR FOOT LEFT 3 OR MORE [...] foot Electronically signed by: Arnol Hoyt MD Roscoe Mosley MD IMG XR PROCEDURES Meaghan [...] BI-RADS Category 1: Negative PATIENT LETTER SENT us Kathryn Kelley MD IMG MAMMO PROCEDURES Final Result * Hepatitis C antibody (04/26/2018 9:30 AM RECORD PRESSMAN) Hep C Ab Negative Negative ELKE HERRERA (RINA) Comment:Testing performed by : [facility], [address] [place] [address]., [id number] Blood specimen (specimen) 04/26/2018 9:30 AM RECORD PRESSMAN 04/26/2018 4:11 PM RECORD PRESSMAN Narrative ELKE HERRERA (RINA) - 04/26/2018 5:17 PM RECORD PRESSMAN us Shiraz No MD LAB MICROBIOLOGY - GENERAL O RDERABLES Final Result ELKE HERRERA (RINA) [address] [facility] Department [place] [address] * ThinPrep Pap, Reflex HPV all pth [...] Risk HPV DNA testing was not performed. 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 08/14/2012 1:06 PM CDT us Viky Girard MD LAB PATHOLOGY ORDERABLES F inal Result [facility] HISTORICAL RESULTS from Last 3 Months or Most Recently Relevant to Health Maintenance Insurance [facility] Advance Directives For more information, please contact: [phone] * Full Code (Latest Code Status on File) Date Activated Date Inactivated Comments 05/08/2018 6:56 PM 05/09/2018 8:46 PM Care Teams Firewall Administrator Relationship Specialty Start Date End Date Antonio Stafford MD [facility] - General 04/22/21
--- OUTSIDE RECORDS SUMMARY | 2024-05-06 08:15 | XMS_ITS | Clinical Summary ---
Author Organization [facility] [address] [facility] [address] [address] Phone Care Team Providers Care Submarine Element Coordinator Name Role Phone Antonio Stafford MD Primary Care Provider [phone] Lane Stock MD Unavailable Allergies No known active allergies Medications Ibuprofen 200 MG Capsule Take 2-3 Caps by mouth as needed. Active Acetaminophen-C affeine (EXCEDRIN TENSION HEADACHE PO) Take 2 Tabs by mouth 2 times daily as needed. Active PSYLLIUM HUSK PO Take by mouth as needed. Active acetaminophen (TYLENOL) 500 MG Tablet Take 500 mg by mouth 2 times daily as needed. Active naproxen sodium (ALEVE) 220 MG Tablet Take 220 mg by mouth 2 times daily as needed. Active polyethylene glycol (MIRALAX) 17 GM/SCOOP Powder Take 17 g by mouth every morning. 17 g = 1 scoop. Dissolve in 4 -8 oz of water or other liquid. Active Calcium-Magnesi um-Vitamin D 500-250-125 MG-MG-UNIT Tablet Take by mouth every morning. Active Turmeric 500 MG Tablet Take by mouth 3 times daily. Active dicyclomine (BENTYL) 20 MG Tablet Take 1 Tablet by mouth every 6 hours. 30 Tablet 2 Active Additional Information Patient not taking.Reported on 07/31/2023 ondansetron (ZOFRAN) 4 MG Tablet Take 1-2 Tablets by mouth every 8 hours as needed for Nausea - 1st line. 20 Tablet 2 Active Additional Information Patient not taking.Reported on 07/31/2023 Active Problems Problem Noted Date Diagnosed Date Diverticulitis of large inte marsha without perforation or abscess without bleeding 07/23/2019 Pain of right heel 06/19/2017 Plantar fasciitis, right 06/19/2017 Gastrocnemius equinus, right 06/19/2017 Encounters Date Type Department Care Team Description 03/05/2024 Telephone [facility] - General Surgery - [place] [address] [address] [address] Stock MD from Last 3 Months Family History Medical History Relation Name Comments Cancer Brother 1 Rudolph Heart Disease Brother 1 Rudolph Prostate Cancer Brother 1 Rudolph Bladder cancer Brother 2 Roger Cancer Brother 2 Roger Other-comment Brother 2 Roger Bowel resectio n- DrHenrique Stock Heart Disease Brother 3 Himanshu Other-comment Brother 3 Himanshu Bowel Resectio n-[facility] No Known Problems Brother 4 Mak No Known Problems Daughter Other-comment Father ALS Stroke Maternal Grandfather Other-comment Maternal Grandmother Bowel Resection Cancer Mother Colon Cancer Mother Heart Disease Mother No Known Problems Paternal Grandfather No Known Problems Paternal Grandmother Sudden Cardiac Sister 1 Other-comment Sister 2 Neurological p roblems No Known Problems Son Relation Name Status Comments Brother 1 Rudolph Alive Brother 2 Roger Alive Brother 3 Himanshu Alive Brother 4 Mak Alive Daughter Alive Father Maternal Grandfather Maternal Grandmother Mother Paternal Grandfather Paternal Grandmother Sister 1 Sister 2 Alive Son Alive Social History Tobacco Use Types Packs/Day Years Used Date Smoking Tobacco: Never Smokeless Tobacco: Never Tobacco Cessation:Counseling Given: No Alcohol Use Standard Drinks/Week Comments Yes 0 (1 standard drink = 0.6 oz pur e alcohol) 12 whiteclaws a week AUDIT-C Answer Date Recorded Q1: How often do you have a drink containing alc ohol? 2-3 times a week 07/23/2019 Q2: How many drinks containi ng alcohol do you have on a typical day when you are drinking? 5 or 6 07/23/2019 Q3: How often do you have si x or more drinks on one occasion? Weekly 07/23/2019 Sexually Active Control Partners Comments Yes Male Comments No Sex and Gender Information Value Date Recorded Sex Assigned at Not on file Legal Sex Female 10:31 PM CDT Gender Identity Not on file Sexual Orientation Not on file Last Filed Vital Signs Vital Sign Reading Time Taken Comments Blood Pressure 132/86 07/31/2023 1:13 PM CDT Pulse 94 07/31/2023 1:13 PM CDT Temperature 36.9 C (98.4 F) 07/31/2023 1:13 PM CDT Respiratory Rate 16 06/28/2023 7:49 AM CDT Oxygen Saturation 96% 07/31/2023 1:13 PM CDT Inhaled Oxygen Concentration - - Weight 98 kg (216 lb) 07/31/2023 1:13 PM CDT Height 175.3 cm (5' 9 ) 07/31/2023 1:13 PM CDT Body Mass Index 31.9 07/31/2023 1:13 PM CDT Plan of Treatment Upcoming Encounters Date Type Department Care Team (Late st Contact Info) Description 07/21/2024 8:30 AM CDT Hospital Encounter [facility] Lab Periop [address] [place] [address] [address] Stock MD #[address] [address] 07/21/2024 8:30 AM CDT - 07/21/2024 9:00 AM CDT [facility] [address] [place] [address] [address] Stock MD #[address] [address] COLONOSCOPY Scheduled Procedures Name Priority Associated Diagnoses Date/Ti me COLONOSCOPY HISTORY OF COLON POLYPS 07/21/2024 8:30 AM CDT Health Maintenance Due Date Last Done Comments Pap Smear 12/04/1983 Cervical Cancer Screening (CCS) 1992 HPV/Cotest 1992 Cologuard 2012 Immunochemical Fecal Occult Blood 2012 Pneumococcal Immunization (50+ years) (1 of 1 - PCV) 2012 Mammogram 10/08/2020 10/09/2019, 09/20, 08/09/2018, Additional history exists Influenza Immunization (#1) 10/21/20230 10/2022, 12/02/2021, 11/23/2020, Additional history exists SARS-COV-2 Immunization ( season) 2023 12/24/2021, 12/24/2020, 06/04/2020, Additional history exists Colonoscopy 10/06/2024 10/07/2019, 03/01/2015 Colorectal Cancer Screening 10/06/2024 Respiratory Syncytial Virus (RSV) Immunization (Adult) (1 - 1-dose 75+ series) 2037 10/07/2019, 03/01/2015 Zoster Immunization Completed 02/16/2019, 9 Hepatitis C Virus (HCV) Screening Completed 05/21/2020 DTaP/Tdap/Td Immunization Discontinued 04/24/2022, TdaP Immunization Completed 04/24/2022, 06/05/2011 Hepatitis B Immunization Aged Out No longer eligible based on patient's age to complete this topic Meningococcal Immunization (ACWY) Aged Out No longer eligible based on patient's age to complete this topic Rotavirus Immunization Aged Out No lo nger eligible based on patient's age to complete this topic Insurance Care Teams Submarine Element Coordinator Relationship Specialty Start Date End Date Antonio Stafford MD [address] [place] [address] PCP - General Family Medicine 11/29/21 Lane Stock MD #[address] [address] Consulting Physician Colon and Rectal Surgery 07/24/23
--- OUTSIDE RECORDS SUMMARY | 2024-05-06 08:15 | XMS_ITS | Encounter Summary ---
Author Organization [facility] Address [address] [place] [address] Care Team Providers Care Construction Site Manager Name Role Phone Unavailable Primary Care Provider Unavailabl e Encounter Details Date Type Department Care Team (Late st Contact Info) Description 12/23/2020 Lab Requisition [facility] Care DermPath Lab [address] [facility] [place] [id number] Catarino Nieves MD [address] [address] Social History Tobacco Use Types Packs/Day Years Used Date Smoking Tobacco: Never Assessed Sex and Gender Information Value Date Recorded Sex Assigned at Not on file Gender Identity Not on file Sexual Orientation Not on file documented as of this encounter Plan of Treatment Not on file documented as of this encounter Procedures Procedure Name Priority Date/Time Associated Diagnosis Comments DERMATOPATHOLOGY Routine 12/20/2020 12:0 0 AM CDT documented in this encounter Results * DERMATOPATHOLOGY (12/20/2020 12:00 AM CDT) Case Report Dermatopathology Report Case: [id number] Authorizing Provider: Catarino Nieves MD Collected: 12/20/2020 12:00 AM Ordering Location: [facility] Care DermPath Lab Received: 12/23/2020 09:11 AM Pathologist: Caryn Vallejo MD Specimen: Skin, left posterior neck 5:20 PM CDT DERMATOPATHOLOGY LABORATORY Final Diagnosis Specimen A. SKIN, left posterior neck: PIGMENTED SEBORRHEIC KERATOSIS (L82.1) 5:20 PM CDT DERMATOPATHOLOGY LABORATORY Clinical History Nevus SK verruca R/O atypical melanocytic lesion. 5:20 PM CDT DERMATOPATHOLOGY LABORATORY Gross Description Specimen A: Received is one formalin filled container labeled with the patient's name and designated left posterior neck. The specimen consists of a shave biopsy measuring [id number]. Jar 0. 5:20 PM CDT DERMATOPATHOLOGY LABORATORY Microscopic Description Specimen A. SKIN, left posterior neck: Sections show an acanthotic lesion composed of relatively uniform keratinocytes. There is hyperkeratosis and pseudo horn cysts. Pigment is present in the keratinocytes composing this tumor. 5:20 PM CDT DERMATOPATHOLOGY LABORATORY Disclaimer An external and internal positive and negative controls are appropriate for the histochemical, immunohistochemical and immunofluorescence stain(s) in this case (if any), except where stated explicitly. The performance characteristics of the stain(s) cited in this report were developed and its performance characteristic determined by the Dermatopathology Laboratory at [facility], directed by Dr. Arnol Vallejo. These tests need not be, and therefore are not, approved by the [place] Food and Drug Administration. The tests are used for clinical purposes. Billing Codes Specimen Charges Stain Charges 74138 1 5:20 PM CDT DERMATOPATHOLOGY LABORATORY Embedded Images 5:20 PM CDT DERMATOPATHOLOGY LABORATORY Pathology/Cytolog y TISSUE SPECIMEN FROM SKIN / Unknown 12/20/2020 12/23/2020 9:11 AM CDT Catarino Nieves MD LAB - PATHOLOGY/CYTO LOGY ORDERABLES DERMATOPATHOLOGY LABORATORY [facility] - Department of Dermatology [address], [address] [phone] documented in this encounter Visit Diagnoses Not on filedocumented in this encounter
--- OUTSIDE RECORDS SUMMARY | 2024-05-06 08:15 | XMS_ITS | Encounter Summary ---
Author Organization [facility] Address [address] [place] [address] Phone Care Team Providers Care Aerial Erector Name Role Phone Viky Girard MD Primary Care Provider [phone]- [phone] Antonio Stafford MD Primary Care Provider [phone] [phone] Encounter Details Date Type Department Care Team (Late st Contact Info) Description 10/11/2020 Orders Only [facility] [address] [place] [phone] Viky Girard MD [address] [place] [address] Social History Tobacco Use Types Packs/Day Years Used Date Smoking Tobacco: Never Smokeless Tobacco: Never Alcohol Use Standard Drinks/Week Comments Yes 0 (1 standard drink = 0.6 oz pur e alcohol) 2-3xs a week PHQ-2 Answer Date Recorded PHQ-2 Total Score (If total score is 3 or more points, staff should administer the PHQ-9) 0 06/21/2020 Comments No Sex and Gender Information Value Date Recorded Sex Assigned at Not on file Legal Sex Female 2:48 AM STREETCAR DISPATCHER Gender Identity Not on file Sexual Orientation Not on file 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 Author CCM Chronic Pain Care Plan Chronic Care Management Alina Olivas, CHANO Note: Problem: Chronic Pain Goals: 1. Minimize further functional decline 2. Maximize quality of life 3. Control pain Strategies: - Activity/exercise program recommendation - Conservative stepwise pain medicine strategy with multi-disciplinary approach - Recommend healthy lifestyle strategies and compensatory methods as needed documented as of this encounter Procedures Procedure Name Priority Date/Time Associated Diagnosis Comments SCAN - RADIOLOGY/IMAGING 10/11/2020 documented in this encounter Results * SCAN - RADIOLOGY/IMAGING (10/11/2020) Anatomical Region Laterality Modality Other us Viky Girard MD Final Resu lt documented in this encounter Visit Diagnoses Not on filedocumented in this encounter Care Teams Aerial Erector Relationship Specialty Start Date End Date Viky Girard MD PCP - General 05/19/16 04/21/21 Antonio Stafford MD PCP - General 04/22/21 documented as of this encounter
--- OUTSIDE RECORDS SUMMARY | 2024-05-06 08:15 | XMS_ITS | Encounter Summary ---
Author Organization [facility] Health Address [address] [address] Care Team Providers Care Top Case Assembler Name Role Phone Unavailable Primary Care Provider Unavailabl e Encounter Details Date Type Department Care Team (Late st Contact Info) Description 08/29/2019 Lab Requisition [facility] [address] [place] [address] Dudley Holland MD Social History Tobacco Use Types Packs/Day Years Used Date Smoking Tobacco: Never Assessed Sex and Gender Information Value Date Recorded Sex Assigned at Not on file Gender Identity Not on file Sexual Orientation Not on file documented as of this encounter Plan of Treatment Not on file documented as of this encounter Procedures Procedure Name Priority Date/Time Associated Diagnosis Comments SARS-COV-2 (COVID-19) IN HOUSE Routine 08/29/2019 8:35 AM CDT documented in this encounter Results * SARS-COV-2 (COVID-19) IN HOUSE (08/29/2019 8:35 AM CDT) COVID-19 PCR Not detected Not detected, Invalid 08/29/2019 10:40 PM CDT [facility] Microbiology SPECIMEN FROM NASOPHARYNGEAL STRUCTURE / Unknown Collection / Unknown 08/29/2019 8:35 AM CDT 08/29/2019 3:15 PM CDT Narrative [facility] - 08/29/2019 10:40 PM CDT This nucleic acid amplification assay performance was validated by [facility]. This test has been authorized by the Food and Drug administration (FDA)under an Emergency Use Authorization (EUA). This test has been validated in accordance with the FDA's guidance document Policy for Diagnostic Testing in Laboratories Certified to perform High Complexity Testing under CLIA prior to Emergency Use Authorization for Coronavirus Disease-2019 during the Public Health Emergency issued on April 19, 2019. FDA independent review of this validation is pending. This test is only authorized for the duration of time the declaration that circumstances exist justifying the authorization of emergency use of in vitro diagnostic tests for detection of SARS-CoV-2 virus and/or diagnosis of COVID-19 infection under section 564(b)(1) of the Act, 21 U.S.C 360bbb-3 (b)(1), unless the authorization is terminated or revoked sooner. Dudley Holland MD LAB - MICROBIOLOGY ORDERABLES [facility] [address] [place] [address], [facility] [phone] documented in this encounter Visit Diagnoses Not on filedocumented in this encounter Additional Health Concerns Infection Onset Date Last Indicated Resolved Time COVID-19 Under Investigation 08/29/2019 08/29/2019 08/29/2019 10:40 PM CDT documented as of this encounter
--- NOTE | 2024-05-06 08:17 | ED_ITS ---
HPI - General Adult General Chief complaint: Urogenital-Female Stated complaint: poss UTI/cat bite on left hand Source: patient Mode of arrival: ambulatory Limitations: no limitations History of Present Illness HPI narrative: 63 y/o female presented for c/o left hand cat bite sustained four days ago. Says she was bitten by her domestic cat, and reports 2 puncture sites on the left hand. Did apply hydrogen peroxide yesterday to the hand. Denies swelling, decreased ROM, numbness, tingling or weakness of the hand/digits. pt also reports intermittent dysuria x6 weeks. Denies hematuria, nausea, vomiting, abdominal pain, flank pain, constipation, diarrhea, fevers or chills. Related Data Allergies Allergy/AdvReac Type Severity Reaction Status Date / Time No Known Allergies Allergy Verified 05/06/24 08:14 Review of Systems Review of Systems: CONSTITUTIONAL: Denies body aches, fever, chills, or sweats. CARDIOVASCULAR: Denies chest pain, palpitations, or edema. RESPIRATORY: Denies cough or dyspnea. GASTROINTESTINAL: Denies abdominal pain, nausea, vomiting, or diarrhea. : reports dysuria SKIN: reports left hand wounds MUSCULOSKELETAL: Denies back pain, joint pain, or myalgia. NEUROLOGIC: Denies headache, numbness, tingling, or weakness. [facility] Past Medical History Medical History (Updated 05/06/24 @ 08:32 by America Masters APRN) Right wrist pain Elective x1 Vaginal delivery x2 Tendonitis Obesity Chronic knee pain after total replacement of right knee joint Polyp of ascending colon Diverticulitis (~06/2019) Arthritis Adenomatous colon polyp Surgical History Surgical History History of dilation and curettage x2 [place] teeth extracted History of bilateral tubal ligation 1993 History of total knee replacement (TKR) x2, both knees History of arthroscopy of right knee (~12/2013) Hx of total knee arthroplasty (~05/08/18) right Status post right partial knee replacement (~04/2013) H/O: hysterectomy (~2001) 2002 H/O hand surgery H/O foot surgery H/O colonoscopy (~09/2019) History of bladder suspension procedure 2007 Family History Family History Father ALS (amyotrophic lateral sclerosis) Mother Old age Colon cancer Unknown Heart disease Carcinoma of colon Sibling Malignant neoplasm of prostate Bladder cancer A-fib Acute myocardial infarction Diabetes mellitus Hypertension Depression Thyroid disorder Grandparent Cerebrovascular accident Other Breast cancer maternal cousin Other Arthritis Lung disease Social History Social History Smoking status: Never smoker Additional smoking assessment comments: DENIES ANY FORM OF TOBACCO USE Alcohol intake: current Drinks per week: 6 Alcohol use details: BEER/WINE Substance use: never Substance use type: does not use Lack of Transportation: No Lack of Food: Never True Current Housing: I Have Housing Concerned About Future Housing: No Difficulty Paying Gas/Electric Bills: No Difficulty Paying for Meds: No Currently Unemployed: No Education: Trade/Vocational Certificate Difficulty w/ Childcare or Family Care: No Living arrangements: with family Gender identity (if verbalized by the patient): Female Spiritual care concerns: No Agree to blood products: Yes Comments At time of signature, I have reviewed and agree with nursing past medical, surgical, social and family history unless otherwise noted. Please see nursing chart for further information. There is no relevant family history pertinent to the presenting complaint Exam Narrative: GENERAL: Well-appearing EYES: conjunctivae clear, and EOMI. ENT: Mucous membranes moist. Oropharynx without edema, erythema or lesions. CHEST: Clear to auscultation. HEART: Regular rate and rhythm. SKIN: Warm, dry. Left dorsal hand with puncture wound over 1st metacarpal with scant serous drainage; no fluctuance, induration or streaking, nontender. Puncture wound over 4th metacarpal no drainage, no fluctuance, induration or streaking, nontender. CMS intact. NEURO: Alert and oriented x3. Course Course Emergency Course: Patient is aware of diagnosis, understands and agrees to treatment plan. Anticipatory guidance given. Patient agrees to follow-up as directed and is aware of reasons to seek care at the emergency department. Portions of this record may have been created with voice recognition software Level of Care: Express Care Visit Vital Signs Vital signs: Vital Signs Temperature 98.0 F 05/06/24 08:09 Pulse Rate 82 05/06/24 08:09 Respiratory Rate 20 05/06/24 08:09 Blood Pressure 138/76 05/06/24 08:09 Pulse Oximetry 95 05/06/24 08:09 Oxygen Delivery Room Air 05/06/24 08:09 Temperature 98.0 F 05/06/24 08:09 Pulse Rate 82 05/06/24 08:09 Respiratory Rate 20 05/06/24 08:09 Blood Pressure 138/76 05/06/24 08:09 Pulse Oximetry 95 05/06/24 08:09 Oxygen Delivery Room Air 05/06/24 08:09 Reviewed Medical Decision Making MDM Narrative Medical decision making narrative: Discussed physical exam findings, left dorsal hand cat bite will send Augmentin, and culture urine. Advised supportive measures and signs/symptoms to go to the ER. Pt is appropriate for outpt treatment and f/u. Differential Diagnosis Differential Diagnosis: UTI, cystitis, animal bite, cellulitis Vital Signs Vital Signs: Vital Signs Temperature 98.0 F 05/06/24 08:09 Pulse Rate 82 05/06/24 08:09 Respiratory Rate 20 05/06/24 08:09 Blood Pressure 138/76 05/06/24 08:09 Pulse Oximetry 95 05/06/24 08:09 Oxygen Delivery Room Air 05/06/24 08:09 Temperature 98.0 F 05/06/24 08:09 Pulse Rate 82 05/06/24 08:09 Respiratory Rate 20 05/06/24 08:09 Blood Pressure 138/76 05/06/24 08:09 Pulse Oximetry 95 05/06/24 08:09 Oxygen Delivery Room Air 05/06/24 08:09 Discharge Plan Discharge Clinical Impression: Cat bite, Dysuria Patient Disposition: Home, Self-Care Condition: Stable Instructions: Antibiotic Form, Animal Bite (ED) Additional Instructions: Keep the area clean and dry - cleanse with warm water and mild soap and allow to fully dry. Ok to apply neosporin to the site Keep it open to air (no bandages unless draining) Take antibiotic as directed Watch for worsening symptoms including pain, redness, swelling, streaking, pus/drainage, fever. Go to the ER with any of these symptoms or concerns. Follow up with primary care provider in 1 week as needed. Your urine will be sent of for a culture to determine if bacteria is causing your symptoms. If the culture shows a UTI, you will be notified and an antibiotic will be called in for you. Patient Language: Albanian Prescriptions: New amoxicillin-pot clavulanate 875-125 mg tablet 1 tablet PO Q12H 7 Days Qty: 14 0RF No Action duloxetine 60 mg capsule,delayed release(DR/EC) See Rx Instructions .ROUTE .COMPLEX Qty: 90 1RF Dose Instruction: TAKE ONE (1) CAPSULE BY MOUTH DAILY Rx Instructions: TAKE ONE (1) CAPSULE BY MOUTH DAILY tramadol 50 mg tablet 50 mg PO Q6H PRN (Reason: pain) Qty: 120 1RF Follow-up/Referrals: Antonio Stafford MD [Primary Care Provider] - Time of Disposition: 08:33
--- OUTSIDE RECORDS SUMMARY | 2024-05-06 08:18 | XMS_ITS | CONTINUITY OF CARE DOCUMENT ---
Author Name bolivar lutz Address Unknown Organization [facility] Address [address] [place] [address] [address] [place] [address] Phone [phone] Care Team Providers Care Compensation Administrator Name Role Phone Piotr COOK, Fredy Unavailable [phone] ELLA ADDISON MD Unavailable [phone] ELLA ADDISON MD Unavailable INSURANCE PROVIDERS Payer name Policy type / Coverage type [place] red democrat [id number]
[2024-05-06 08:30] LABS: EDUAAPPEAR Cloudy; EDUABILI Negative (Negative); EDUABLOOD Negative (Negative); EDUACOLOR1 Yellow; EDUAGLUCOSE Negative (Negative); EDUAKETONE Negative (Negative); EDUALEUKO 1+ (Negative); EDUANITRATE Negative (Negative); EDUAPH 5.5; EDUAPROTEIN Negative (Negative); EDUAUROBILI 0.2
== END 2024-05-06 08:37 | disposition home or self-care (01) ==
PROVIDERS: Emergency Provider Nurse Practitioner Family; PCP Family Medicine
DX: S61.432A Puncture wound without foreign body of left hand, initial encounter (principal); W55.01XA Bitten by cat, initial encounter; R30.0 Dysuria; E66.9 Obesity, unspecified; Z68.34 Body mass index [BMI] 34.0-34.9, adult; M19.90 Unspecified osteoarthritis, unspecified site; Z96.653 Presence of artificial knee joint, bilateral
CPT/HCPCS: 81003; 87086; 99213; G0463

== ENCOUNTER 2024-07-22 10:42 | Outpatient (CLI) | payer BC, SELFPAY ==
--- OUTSIDE RECORDS SUMMARY | 2024-07-22 11:03 | XMS_ITS | Encounter Summary ---
Author Organization [facility] Healthcare Address [address] [place] [address] Care Team Providers Care Service Transformer Repair Supervisor Name Role Phone Viky Girard MD Primary Care Provider [phone] Antonio Stafford MD Primary Care Provider [phone] Reason for Visit * Reason Onset Date Comments Prior Auth 10/16/2018 Diclofenac Encounter Details Date Type Department Care Team (Late st Contact Info) Description 10/16/2018 Telephone [facility] [address] [facility] [address] [place] [address] [place] [address] [place] [address], [place] [address] Prior Auth (Diclofenac) Social History Tobacco Use [...] on file Legal Sex Female 2:48 AM TECHNICAL ADJUSTER Gender Identity Not on file Sexual Orientation Not on file 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 02/18/2020 02/20/2020 06/17/2020 3:05 AM C DT documented as of this encounter Care Teams Service Transformer Repair Supervisor Relationship Specialty Start Date End Date Viky Girard MD PCP - General 05/19/16 04/21/21 Antonio Stafford MD PCP - General 04/22/21 documented as of this encounter
--- OUTSIDE RECORDS SUMMARY | 2024-07-22 11:03 | XMS_ITS | Encounter Summary ---
Author Organization [facility] Healthcare Address [address] [place] [address] Care Team Providers Care Golf Course Equipment Operator Name Role Phone Viky Girard MD Primary Care Provider [phone] Antonio Stafford MD Primary Care Provider [phone] Reason for Visit * Reason Onset Date Comments Prior Auth 11/06/2018 Diclofenac 1% Ge l Encounter Details Date Type Department Care Team (Late st Contact Info) Description 11/06/2018 Telephone [facility] [place] [facility] [address] [facility] Medicine [address] [place], [place] [id number] [place] [address] [place] [address], [place] [phone] Prior Auth (Diclofenac 1% Gel) Social History [...] on file Legal Sex Female 2:48 AM MANAGER REPORTING Gender Identity Not on file Sexual Orientation Not on file 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 02/18/2020 02/20/2020 06/17/2020 3:05 AM C DT documented as of this encounter Care Teams Golf Course Equipment Operator Relationship Specialty Start Date End Date Viky Girard MD PCP - General 05/19/16 04/21/21 Antonio Stafford MD PCP - General 04/22/21 documented as of this encounter
--- OUTSIDE RECORDS SUMMARY | 2024-07-22 11:03 | XMS_ITS | Encounter Summary ---
Author Organization [facility] Address [address] [place] [address] Phone Care Team Providers Care Emergency Medicine Name Role Phone Viky Girard MD Primary Care Provider [phone]- [phone] Antonio Stafford MD Primary Care Provider [phone] -[phone] Encounter Details Date Type Department Care Team (Late st Contact Info) Description 10/11/2020 Orders Only [facility] [address] [place] [phone] Viky Girard MD [address] [place] [address] Social History Tobacco Use Types Packs/Day Years [...] on file Legal Sex Female 2:48 AM KITCHEN PORTER Gender Identity Not on file Sexual Orientation Not on file 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
--- OUTSIDE RECORDS SUMMARY | 2024-07-22 11:03 | XMS_ITS | Encounter Summary ---
Author Organization [facility] Address [address] [place] [address] Phone Care Team Providers Care Emergency Medical Service Coordinator Name Role Phone Viky Girard MD Primary Care Provider [phone] Antonio Stafford MD Primary Care Provider [phone] Encounter Details Date Type Department Care Team (Late st Contact Info) Description 06/09/2020 Orders Only [facility] [address] [place] [phone] Viky Girard MD [address] [place] [address] Social History Tobacco Use Types Packs/Day Years Used Date Smoking Tobacco: Never Smokeless Tobacco: Never Alcohol Use Standard Drinks/Week Comments Yes 0 (1 standard drink = 0.6 oz pur e alcohol) 2-3xs a week PHQ-2 Answer Date Recorded PHQ-2 Score 0 10/09/2018 Comments No Sex and Gender Information Value Date Recorded Sex Assigned at Not on file Legal Sex Female 2:48 AM CRITICAL SYSTEMS TECHNICIAN Gender Identity Not on file Sexual Orientation Not on file 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
--- OUTSIDE RECORDS SUMMARY | 2024-07-22 11:04 | XMS_ITS | Clinical Summary ---
Author Organization [facility] Address [address] [address] Phone Care Team Providers Care Radio Performer Name Role Phone Antonoi Stafford MD Primary Care Provider [phone] [address] Stock MD Unavailable Allergies No known [...] Active Additional Information Patient not taking.Reported on 07/04/2024 ondansetron (ZOFRAN) 4 MG Tablet Take 1-2 Tablets by mouth every 8 hours as needed for Nausea - 1st line. 20 Tablet 2 Active Additional Information Patient not taking.Reported on 07/04/2024 traMADol (ULTRAM) 50 MG Tablet Take 50 mg by mouth every 6 hours as needed. Active DULoxetine (CYMBALTA) [address] Particles Take 60 mg by mouth daily. Active Active Problems Problem Noted Date Diagnosed Date Diverticulitis of large inte marsha without perforation or abscess without bleeding 07/23/2019 Pain of right heel 06/19/2017 Plantar fasciitis, right 06/19/2017 Gastrocnemius equinus, right 06/19/2017 Encounters Date Type Department Care Team Description 07/22/2024 Telephone [facility] - General Surgery - [place] [address] [address] [address] Stock MD 07/21/2024 10:30 AM CDT - 07/21/2024 11:00 AM CDT Surgery [facility] Periop [address] [place] [address] [address] Stock MD COLONOSCOPY--unable to advance past sigmoid colon, procedure aborted 07/21/2024 10:17 AM CDT Anesthesia Event [facility] Periop [address] [place] [address] Jose Eduardo Hui APRN, JACOB 07/21/2024 8:55 AM CDT Ancillary Procedure [facility] Main [address] [place] [address] [address] Stock MD Arrived 07/21/2024 8:48 AM CDT - 07/21/2024 11:28 AM CDT Hospital Encounter [facility] Lab Preop/Pacu II [address] [place] [address] [address] Stock MD Discharge Disposition: Discharged to home or Selfcare 07/21/2024 Travel 07/04/2024 Travel from Last 3 Months Family History Medical [...] Given: No Alcohol Use Standard Drinks/Week Comments Not Currently 12 (1 standard drink = 0.6 oz pu re alcohol) AUDIT-C Answer Date Recorded Q1: How often [...] Sign Reading Time Taken Comments Blood Pressure 133/93 07/21/2024 11:10 AM CDT Pulse 66 07/21/2024 11:10 AM CDT Temperature 36 C (96.8 F) 07/21/2024 11:10 AM CDT Respiratory Rate 18 07/21/2024 11:10 AM CDT Oxygen Saturation 100% 07/21/2024 11:10 AM CDT Inhaled Oxygen Concentration - - Weight 102.1 kg (225 lb) 07/04/2024 9:36 AM CDT Height 175.3 cm (5' 9) 07/04/2024 9:36 AM CDT Body Mass Index 33.23 07/04/2024 9:36 AM CDT Plan of Treatment Upcoming Encounters Date Type Department Care Team (Late st Contact Info) Description 07/22/2024 3:30 PM CDT Office Visit [facility] - General Surgery - [place] [address] [address] [address] Stock MD [address] [address] Health Maintenance Due Date Last Done Comments Cologuard 2012 Immunochemical Fecal Occult Blood 2012 Pneumococcal Immunization (50+ years) (1 of 1 - PCV) 2012 Mammogram 10/08/2020 10/09/2019, 09/20, 08/09/2018, Additional history exists Colonoscopy 10/06/2024 10/07/2019, 03/01/2015 Colorectal Cancer Screening 10/06/2024 Respiratory Syncytial Virus (RSV) Immunization (Adult) (1 - 1-dose 75+ series) 2037 10/07/2019, 03/01/2015 Zoster Immunization Completed 02/16/2019, 9 Hepatitis C Virus (HCV) Screening Completed 05/21/2020 DTaP/Tdap/Td Immunization Discontinued 04/24/2022, TdaP Immunization Completed 04/24/2022, 06/05/2011 Influenza Immunization Completed 4, 11/27/2022, 12/02/2021, Additional history exists SARS-COV-2 Immunization Completed 11/10/19 24, 12/24/2021, 12/24/2020, Additional history exists Hepatitis B Immunization Aged Out No longer eligible based on patient's age to complete this topic Human Papillomavirus (HPV) Immunization Aged Out No longer eligible based on patient's age to complete this topic Meningococcal Immunization (ACWY) Aged Out No longer eligible based on patient's age to complete this topic Rotavirus Immunization Aged Out No lo nger eligible based on patient's age to complete this topic Procedures Procedure Name Priority Date/Time Associated Diagnosis Comments GI IMAGING - COLONOSCOPY Routine 07/21/2024 8:51 AM CDT from Last 3 Months Results * GI IMAGING - COLONOSCOPY (07/21/2024 8:51 AM CDT) Lane Stock MD IMG DIAGNOSTIC ORDERABLES Final Result from Last 3 Months Insurance Care Teams Radio Performer Relationship Specialty Start Date End Date Antonio Stafford MD [address] [place] [id number] PCP - General Family Medicine 11/29/21 Lane Stock MD #[address] [address] Consulting Physician Colon and Rectal Surgery 07/24/23
--- OUTSIDE RECORDS SUMMARY | 2024-07-22 11:04 | XMS_ITS | Encounter Summary ---
Author Organization [facility] Address [address] [place] [address] Phone Care Team Providers Care Sterile Process Tech Name Role Phone Antonio Stafford MD Primary Care Provider [phone] Stock MD Unavailable Reason for Visit * Auth/Cert (Routine) Specialty Diagnoses / Procedures Referred By Contac t Referred To Contact Diagnoses HISTORY OF COLON POLYPS Procedures COLONOSCOPY Lane Stock MD #[address] [address] Phone: tel: fax: Referral ID Status Reason Start Date Expiration Date Visits Re quested Visits Authorized [id number] 1 1 Encounter Details Date Type Department Care Team (Late st Contact Info) Description 07/21/2024 10:17 AM CDT Anesthesia Event [facility] Periop [address] [place] [id number] Jose Eduardo Hui, PARTS ANALYST, NUT CHOPPER [address] [place] [address] Anesthesia Record Procedure Summary Procedure Name Responsible Anesthesiologist Anesthesia Start Time Anesthesia Stop Time COLONOSCOPY--unable to advance past sigmoid colon, procedure aborted Jose Eduardo Hui APRN, JACOB 07/21/24 1017 07/21/24 1040 Events Date Time Event Comment 07/21/2024 0943 1017 An Start 1017 An Start Data 1017 ANASSESSCMPLT 1017 Start Supplemental O2 1017 Anesthesia Ready 1036 Stop Supplemental O2 1036 Stop Data Collection 1036 Transort to Postop 1040 Handoff to RN I completed my SBAR handoff to the receiving nurse. Last vitals BP: (!) 137/99 Temp: 36 C (96.8 F) Pulse: 100 Resp: 16 SpO2: 98 % 1040 An Stop Last vitals: BP : (!) 137/99 Temp: 36 C (96.8 F) Pulse: 100 Resp: 16 SpO2: 98 % Meds Name Total propofol 10 mg/mL 245,040 mcg lactated ringers infusion 0 mL * Agents No agents on file. * Blood No blood administrations on file. Lines, Drains, and Airways Type Details Placement Removal PIV-Single Lumen Placement Date: 04/15; Placement Time: 916; Catheter Size: 22 G; Orientation: Posterior, Right; Location: Hand; Site Prep: Alcohol, Chlorhexidine ; Local Anesth: None; Technique: Anatomical landmarks; Inserted by: Maddy MADDEN; Insertion Attempts: 1; Difficult Venous Access? No; Patient Tolerance: Tolerated well; Removal Date: 07/21/24; Removal Time: 10507/21/24916 by Maddy Chris RN 07/21/24 105 by Kathryn Stafford RN documented in this encounter Social History Tobacco Use Types Packs/Day Years Used Date Smoking Tobacco: Never Smokeless Tobacco: Never Alcohol Use Standard Drinks/Week Comments Not Currently [...] on file documented as of this encounter OR Notes * Anesthesia Postprocedure Evaluation - Jose Eduardo Hui APRN, CRNA - 07/21/2024 10:43 AM CDT Patient: Alana Batres Procedure Summary Date: 07/21/24 Room / Location: [facility] GI LAB 01 / [facility] MAIN Anesthesia Start: 1017 Anesthesia Stop: 1040 Procedure: COLONOSCOPY--unable to advance past sigmoid colon, procedure aborted Diagnosis: (COLONOSCOPY--unable to advance past sigmoid colon, procedure aborted) Surgeons: Lane Stock MD Responsible Provider: Jose Eduardo Hui APRN, CRNA Anesthesia Type: MAC ASA Status: 2 Anesthesia Type: MAC Last vitals Vitals Value Taken Time BP 118/72 07/21/24 1040 Temp 36 ??C (96.8 ??F) 07/21/24 1040 Pulse 96 07/21/24 1040 Resp 19 07/21/24 1040 SpO2 100 % 07/21/24 1040 Pain score: 0 Pain management: adequate Patient location during evaluation: GI Lab Patient participation: Sufficiently recovered to participate Level of consciousness: sleepy but conscious Cardiovascular status: acceptable Respiratory status: acceptable Hydration status: acceptable Comments: Vital signs on nursing flowsheet Anesthetic complications: no Airway patency: patent Nausea and Vomiting: none * Anesthesia Preprocedure Evaluation - Jose Eduardo Hui APRN, CRNA - 07/21/2024 9:42 AM CDT Anesthesia Evaluation Procedure Information Date/Time: 07/21/24 1030 Procedure: COLONOSCOPY Location: [facility] GI LAB 03 / [facility] MAIN Surgeons: Lane Stock MD Patient summary reviewed and Nursing notes reviewed No history of anesthetic complications No family history of anesthesia reaction Allergies: No Known Allergies Patient allergies reviewed. Medications: Current Facility-Administered Medications: lactated ringers infusion, 20 mL/hr, Intravenous, Continuous, Lane Stock MD, Last Rate: 20 mL/hrat 07/21/24916, 20 mL/hr at 07/21/24916 Medications Prior to Admission: acetaminophen (TYLENOL) 500 MG Tablet, Take 500 mg by mouth 2 times daily as needed., Disp: , Rfl: Acetaminophen-Caffeine (EXCEDRIN TENSION HEADACHE PO), Take 2 Tabs by mouth 2 times daily as needed., Disp: , Rfl: Jcmitlx-Rismxtkks-Trgrorf D 500-250-125 MG-MG-UNIT Tablet, Take by mouth every morning., Disp: , Rfl: dicyclomine (BENTYL) 20 MG Tablet, Take 1 Tablet by mouth every 6 hours. (Patient not taking: Reported on 07/04/2024), Disp: 30 Tablet, Rfl: 0 DULoxetine (CYMBALTA) [address] Particles, Take 60 mg by mouth daily., Disp: , Rfl: Ibuprofen 200 MG Capsule, Take 2-3 Caps by mouth as needed., Disp: , Rfl: naproxen sodium (ALEVE) 220 MG Tablet, Take 220 mg by mouth 2 times daily as needed. (Patient not taking: Reported on 07/04/2024), Disp: , Rfl: ondansetron (ZOFRAN) 4 MG Tablet, Take 1-2 Tablets by mouth every 8 hours as needed for Nausea - 1st line. (Patient not taking: Reported on 07/04/2024), Disp: 20 Tablet, Rfl: 0 polyethylene glycol (MIRALAX) 17 GM/SCOOP Powder, Take 17 g by mouth every morning. 17 g = 1 scoop.Dissolve in 4 -8 oz of water or other liquid. (Patient not taking: Reported on 07/04/2024), Disp: , Rfl: PSYLLIUM HUSK PO, Take by mouth as needed., Disp: , Rfl: traMADol (ULTRAM) 50 MG Tablet, Take 50 mg by mouth every 6 hours as needed., Disp: , Rfl: Turmeric 500 MG Tablet, Take by mouth 3 times daily. (Patient not taking: Reported on 07/04/2024), Disp: , Rfl: Patient medications reviewed. Airway Mallampati: II TM distance: <3 FB Neck ROM: full Dental - normal exam Pulmonary - negative ROS and normal exam breath sounds clear to auscultation Cardiovascular - negative ROS and normal exam Exercise tolerance: good Rhythm: regular Rate: normal Neuro/Psych - negative ROS GI/Hepatic/Renal Endo/Other (+) arthritis Risks, benefits, alternatives discussed with:patient Anesthesia Plan ASA 2 MAC intravenous induction Anesthetic plan and risks discussed with Patient. Plan discussed with NUT CHOPPER and surgeon. documented in this encounter Plan of Treatment Upcoming Encounters Date Type Department Care Team (Late st Contact Info) Description 07/22/2024 3:30 PM CDT Office Visit [facility] - General Surgery - [place] [address] [phone] [address] Stock MD #[address] [address] documented as of this encounter Visit Diagnoses Not on filedocumented in this encounter Administered Medications Inactive Administered Medications - up to 3 most recent administrations Medication Order MAR Action Action Date Dose Rate Site propofol (DIPRIVAN) injection Intravenous, CONTINUOUS (in OR), Starting on Sun07/21/24 at 1019, Until Sun07/21/24 at 1042 New Bag 07/21/2024 10:19 AM CDT 150 mcg/kg/min 91.89 mL/hr documented in this encounter Care Teams Sterile Process Tech Relationship Specialty Start Date End Date Antonio Stafford MD [address] [place] [id number] PCP - General Family Medicine 11/29/21 Lane Stock MD #[address] [address] Consulting Physician Colon and Rectal Surgery 07/24/23 documented as of this encounter
--- OUTSIDE RECORDS SUMMARY | 2024-07-22 11:04 | XMS_ITS | Referral Summary ---
Author Organization [facility] Building [facility] Address [address] [place] [id number] Care Team Providers Care Hoop Driving Machine Operator Helper Name Role Phone Antonio Stafford MD Primary Care Provider [phone] Allergies No known active allergies Medications acetaminophen-c [...] (04/12/2018): Added automatically from request for surgery [id number] Arthritis of back 05/08/2017 Overview (05/24/2020): 8 mm L3-4 spondylolisthesis April 2020 x-rays at [facility] Hx of adenomatous colonic polyps 07/05/2013 Overview [...] the patient's symptoms. 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 Not on file Not on file [...] 104.3 kg (230 lb) 03/17/2024 1:14 PM SHIFT SUPERINTENDENT Height 175.3 cm (5' 9) 03/17/2024 1:14 PM SHIFT SUPERINTENDENT Body Mass Index 33.97 03/17/2024 1:14 PM SHIFT SUPERINTENDENT Plan of Treatment Not on file Goals [...] as needed Medical Devices Implanted Type Area Supervisor Testing Device Identifier Shelf Expiration Date Model / Serial / Lot [employer] [id number] Attune Cementless Rotate Platform Knee 5 Baseplate Tibial - [id number] Implanted:Qty: 1 on 05/08/2018 by Shiraz No MD at [facility] [employer] 06/19/2027 [id number] / / [id number] [employer] [id number] Attune Cruciate Retain Cementless Knee Right 5 Component Femoral - [id number] Implanted:Qty: 1 on 05/08/2018 by Shiraz No MD at [facility] [employer] 09/19/2027 [id number] / / [id number] [employer] [id number] Palacos R+G High Viscosity Cement Bone Gentamicin Arthroplasty - [id number] Implanted:Qty: 1 on 05/08/2018 by Shiraz No MD at [facility] [employer] 09/18/2020 [id number] / / [id number] [employer] [id number] Attune 38mm Cemented Medialize Knee Dome Patellar Aox Sterile - [id number] Implanted:Qty: 1 on 05/08/2018 by Shiraz No MD at [facility] Right: Knee [employer] 12/19/2022 [id number] / / [id number] [employer] [id number] Attune 6mm Cruciate Retaining Rotate Platform Knee 5 Insert - [id number] Implanted:Qty: 1 on 05/08/2018 by Shiraz No MD at [facility] Right: Knee [employer] 10/19/2021 [id number] / / [id number] Procedures Procedure Name Priority Date/Time Associated Diagnosis Comments SCREENING MAMMOGRAM 2D BILATERAL Schedule Routine, Read Routine (OP Routine) 10/09/2019 8:15 AM CDT Encounter for screening for malignant neoplasm of breast HEPATITIS C ANTIBODY Routine 04/26/2018 9:30 AM SHIFT SUPERINTENDENT Preoperative testing THINPAP, REFLEX HPV ALL PTH Routine 08/14/2012 1:06 PM CDT from Last 3 Months or Most Recently Relevant to Health Maintenance Results * Screening Mammogram 2D Bilateral (10/09/2019 8:15 [...] * Hepatitis C antibody (04/26/2018 9:30 AM SHIFT SUPERINTENDENT) Hep C Ab Negative Negative ELKE HERRERA ([place]) Comment:Testing performed by : [facility], [address] [place] [address], [place]., [address] Blood specimen (specimen) 04/26/2018 9:30 AM SHIFT SUPERINTENDENT 04/26/2018 4:11 PM SHIFT SUPERINTENDENT Narrative ELKE HERRERA ([place]) - 04/26/2018 5:17 PM SHIFT SUPERINTENDENT us Shiraz No MD LAB MICROBIOLOGY - GENERAL O RDERABLES Final Result ELKE HERRERA ([place]) [facility] Department [place] [address] * ThinPrep Pap, Reflex HPV all pth [...] Risk HPV DNA testing was not performed. 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 08/14/2012 1:06 PM CDT us Viky Girard MD LAB PATHOLOGY ORDERABLES F inal Result [facility] HISTORICAL RESULTS from Last 3 Months or Most Recently Relevant to Health Maintenance Insurance [facility] CHOICE PLUS [facility] CHOICE PLUS [facility] Advance Directives For more information, please contact: [phone] * Full Code (Latest Code Status on File) Date Activated Date Inactivated Comments 05/08/2018 6:56 PM 05/09/2018 8:46 PM Care Teams Hoop Driving Machine Operator Helper Relationship Specialty Start Date End Date Antonio Stafford MD PCP - General 04/22/21
--- OUTSIDE RECORDS SUMMARY | 2024-07-22 11:04 | XMS_ITS | Encounter Summary ---
Author Organization [facility] Address [address] [place] [address] Phone Care Team Providers Care Frame Wirer Name Role Phone Pinky Tee MD Primary Care Provider [phone] Stock MD Unavailable Reason for Visit * Auth/Cert (Routine) Specialty Diagnoses / Procedures Referred By Contac t Referred To Contact Diagnoses HISTORY OF COLON POLYPS Procedures COLONOSCOPY Lane Stock MD #[address] [address] Phone: tel: fax: Referral ID Status Reason Start Date Expiration Date Visits Re quested Visits Authorized [id number] 1 1 Encounter Details Date Type Department Care Team (Late st Contact Info) Description 07/21/2024 10:30 AM CDT - 07/21/2024 11:00 AM CDT Surgery [facility] Periop [address] [place] [id number] Lane Stock MD #[address] [address] COLONOSCOPY--unable to advance past sigmoid colon, procedure aborted Social History Tobacco Use Types Packs/Day Years [...] on file documented as of this encounter Last Filed Vital Signs Vital Sign Reading Time Taken Comments Blood Pressure 133/92 07/21/2024 10:55 AM CDT Pulse 79 07/21/2024 10:55 AM CDT Temperature 36 C (96.8 F) 07/21/2024 10:55 AM CDT Respiratory Rate 17 07/21/2024 10:55 AM CDT Oxygen Saturation 100% 07/21/2024 10:55 AM CDT Inhaled Oxygen Concentration - - Weight 102.1 kg (225 lb) 07/04/2024 9:36 AM CDT Height 175.3 cm (5' 9) 07/04/2024 9:36 AM CDT Body Mass Index 33.23 07/04/2024 9:36 AM CDT documented in this encounter Discharge Instructions * Discharge Instructions* Kathryn Stafford RN - 07/21/2024 10:43 AM CDT YOU HAD A COLONOSCOPY TODAY. DR. LANE STOCK FOUND: Impression: -Stricture at the rectosigmoid junction Recommendations: -Will likely need surgical intervention DO NOT DRIVE, WORK, OPERATE MACHINERY OR USE POWER TOOLS UNTIL DAY AFTER PROCEDURE. NO ALCOHOL BEVERAGES TODAY FOLLOWING DAY: RETURN TO FULL ACTIVITY, INCLUDING WORK, UNLESS INSTRUCTED OTHERWISE. Call doctor's office ([phone]) or go to Emergency room for: Difficulty Breathing, Headache Or Visual Disturbances Persistent Dizziness Or Light-Headedness Persistent Nausea and Vomiting Temperature greater then 100.0 Significant abdominal pain, chest pain, or bleeding. Here at [facility] we strive to provide excellent care to each of our patients, along with an easy transition between departments, starting with registration until discharge. Through our excellent care and services, we hope that you would recommend our services to your family and friends. You will receive a follow-up phone call in 24-48 hours after your procedure to see how you are doing. This gives our patients the opportunity to recognize any members from our team, from housekeepers, to nurses, to physicians, that you felt gave you excellent service as well as any suggestions for improvement. We hope you found our facility clean and our mission partners courteous. You may also receiving a survey in the mail. We would appreciate it if you could complete the form and return it. A self addressed pre-paid envelope is provided. Thank you for choosing [facility]. documented in this encounter Medications at Time of Discharge acetaminophen (TYLENOL) 500 MG Tablet Take 500 mg by mouth 2 times daily as needed. Acetaminophen-Caf feine (EXCEDRIN TENSION HEADACHE PO) Take 2 Tabs by mouth 2 times daily as needed. Calcium-Magnesium -Vitamin D 500-250-125 MG-MG-UNIT Tablet Take by mouth every morning. dicyclomine (BENTYL) 20 MG Tablet Take 1 Tablet by mouth every 6 hours. 30 Tablet 11/29/2021 DULoxetine (CYMBALTA) [address] Particles Take 60 mg by mouth daily. Ibuprofen 200 MG Capsule Take 2-3 Caps by mouth as needed. naproxen sodium (ALEVE) 220 MG Tablet Take 220 mg by mouth 2 times daily as needed. ondansetron (ZOFRAN) 4 MG Tablet Take 1-2 Tablets by mouth every 8 hours as needed for Nausea - 1st line. 20 Tablet 11/29/2021 polyethylene glycol (MIRALAX) 17 GM/SCOOP Powder Take 17 g by mouth every morning. 17 g = 1 scoop. Dissolve in 4 -8 oz of water or other liquid. PSYLLIUM HUSK PO Take by mouth as needed. traMADol (ULTRAM) 50 MG Tablet Take 50 mg by mouth every 6 hours as needed. Turmeric 500 MG Tablet Take by mouth 3 times daily. documented as of this encounter Progress Notes * Lane Stock MD - 07/21/2024 11:28 AM CDT After the colonoscopy, discussion was held with the patient in the recovery area. I discussed that she has a kink or a severe turn in the sigmoid colon. I did look at the CAT scan immediately after the colonoscopy and saw her sigmoid colon being very twisted and she has a sharp bend there. I explained this to her. At this point I would recommended sigmoid colectomy. I did take care of her brothers colon as well. There is a family history of diverticulosis. She herself has had some diverticulitis attacks. Went over the procedure which would be laparoscopic possible open sigmoid colectomy. Witha flexible sigmoidoscopy. Risks benefits alternatives were discussed. What we will do is go ahead and schedule this. Will put an order in. documented in this encounter H&P Notes * Lane Stock MD - 07/21/2024 9:42 AM CDT Images from the original note were not included. INPATIENT HISTORY AND PHYSICAL NOTE Date / Time of Admission: 07/21/2024 8:48 AM Patient ID: Alana Batres is an 63 y.o. female. Assessment: Active Problems: * No active hospital problems. * History of tubular adenoma 2019, here for surveillance colonoscopy. History of sigmoid diverticulitis back in July 2023 Plan: We discussed the colonoscopy. It is used to detect colon pathology and polyps, and to prevent coloncancer. The prep was discussed, as were the preop and postop course. Transportation is needed to and from the endoscopy center. Risks include but not limited to colon injury, colon perforation requiring possible resection/repair, splenic injury, bleeding, pain, inability to perform the colonoscopy,missed polyps, and infection. Benefits are potentially avoid colon cancer. Alternatives were discussed. The patient agrees to the colonoscopy, and consent was signed. Bowel prep will be MiraLax, and the prep was discussed with the patient. Thank you very much for allowing me to participate in her care. Subjective: SHANELLE Batres is a 63 y.o. female here for surveillance colonoscopy. Tubular adenoma 2019. Since I saw her, she has had 2 more outpatient manage diverticulitis attacks PMHx: She has a past medical history of Adenomatous colon polyp, Arthritis, and Diverticulitis (07/17/2019). PSHx: Her has a past surgical history that includes Partial Knee Arthroplasty (Right); Foot Surgery(Right); Bladder Suspension; Hand Surgery (Right); Colonoscopy (N/A, 03/01/2015); total knee arthroplasty (Right, 05/08/2018); Hysterectomy; Colonoscopy (N/A, 10/07/2019); Total Knee Arthroplasty (Left); Skin Biopsy (Left); [place] Tooth Extraction; and Tubal Ligation. SHx: She reports that she has never smoked. She has never used smokeless tobacco. She reports that she does not currently use alcohol after a past usage of about 7.2 oz of alcohol per week. She reports that she does not use drugs. FHx: Her family history includes Bladder cancer in her brother; Cancer in her brother, brother, andmother; Colon Cancer in her mother; Heart Disease in her brother, brother, and mother; No Known Problems in her brother, daughter, paternal grandfather, paternal grandmother, and son; Other-comment in her brother, brother, father, maternal grandmother, and sister; Prostate Cancer in her brother; Stroke in her maternal grandfather; Sudden Cardiac (age of onset: 40) in her sister. Allergies: Allergies There is no known ICA information for this patient. MEDS: Prior to Admission Medications Prescriptions Last Dose Informant Patient Reported? Taking? Acetaminophen-Caffeine (EXCEDRIN TENSION HEADACHE PO) 07/14/2024 Yes Yes Sig: Take 2 Tabs by mouth 2 times daily as needed. Oodwjvd-Qfpuuxjhi-Hkoufwe D 500-250-125 MG-MG-UNIT Tablet 07/14/2024 Yes Yes Sig: Take by mouth every morning. DULoxetine (CYMBALTA) [address] Particles 07/20/2024 Yes Yes Sig: Take 60 mg by mouth daily. Ibuprofen 200 MG Capsule 07/14/2024 Yes Yes Sig: Take 2-3 Caps by mouth as needed. PSYLLIUM HUSK PO 07/14/2024 Yes Yes Sig: Take by mouth as needed. Turmeric 500 MG Tablet Not Taking Yes No Sig: Take by mouth 3 times daily. Patient not taking: Reported on 07/04/2024 acetaminophen (TYLENOL) 500 MG Tablet 07/14/2024 Yes Yes Sig: Take 500 mg by mouth 2 times daily as needed. dicyclomine (BENTYL) 20 MG Tablet Not Taking No No Sig: Take 1 Tablet by mouth every 6 hours. Patient not taking: Reported on 07/04/2024 naproxen sodium (ALEVE) 220 MG Tablet Not Taking Yes No Sig: Take 220 mg by mouth 2 times daily as needed. Patient not taking: Reported on 07/04/2024 ondansetron (ZOFRAN) 4 MG Tablet Not Taking No No Sig: Take 1-2 Tablets by mouth every 8 hours as needed for Nausea - 1st line. Patient not taking: Reported on 07/04/2024 polyethylene glycol (MIRALAX) 17 GM/SCOOP Powder Not Taking Yes No Sig: Take 17 g by mouth every morning. 17 g = 1 scoop. Dissolve in 4 -8 oz of water or other liquid. Patient not taking: Reported on 07/04/2024 traMADol (ULTRAM) 50 MG Tablet 07/20/2024 Morning Yes Yes Sig: Take 50 mg by mouth every 6 hours as needed. Facility-Administered Medications: None Review of Systems Expand All Collapse All HISTORY AND PHYSICAL Subjective Assessment: Sigmoid diverticulitis, currently on antibiotics and improved. History of colonoscopy 2019, tubular adenoma, recommended for 5 year follow-up PLAN: 1) no indication for colonoscopy at this time. Can wait until next year. Told her I will be more than happy to do this. Just call us next year and we can get her on the schedule. 2) Pathophysiology of diverticular disease was explained to her in detail. Google images were used.We talked about the normal course of diverticulitis and why it happens. Considering this is a minorattack, will treat her with continued antibiotics. We talked about low-fiber diet for the next 2 weeks and then transitioning to a high-fiber diet with daily Metamucil. Diets were printed out for mary Spann. 3) Thank you for allowing me to participate in her care Subjective: HPI: Alana Batres is a 62 y.o. female who I was asked to see by PINKY TEE MD for diverticulitis. She had an attack in the beginning of June. CT scan was reviewed with her which showed the diverticulitis. I pointed this out to her. She is then did okay until last week when she felt like she had another attack. Got Augmentin from her primary care physician. Currently doing a bit better. Having more constipation than normal. Told her this is from the diverticular disease narrowing the lumen of the colon. We talked about pathophysiology of diverticular disease. Talked about thediet. Please see above. She is going down to [place]. Told her to go easy on the diet. We talked about doing a colonoscopy. At this point I would not do a colonoscopy. She is due anyway next year. I will be more than happy to do this next year. She had a tubular adenoma at that time. I did take care of her brother and did his colon surgery. 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 Medications Ordered Prior to Encounter Current Outpatient Medications on File Prior to Visit Medication Sig Dispense Refill acetaminophen (TYLENOL) 500 MG Tablet Take 500 mg by mouth 2 times daily as needed. Acetaminophen-Caffeine (EXCEDRIN TENSION HEADACHE PO) Take 2 Tabs by mouth 2 times daily as needed. Wpiimba-Pkenckxki-Oyfdacb D 500-250-125 MG-MG-UNIT Tablet Take by mouth every morning. dicyclomine (BENTYL) 20 MG Tablet Take 1 Tablet by mouth every 6 hours. (Patient not taking: Reported on 07/31/2023) 30 Tablet 0 Ibuprofen 200 MG Capsule Take 2-3 Caps by mouth as needed. naproxen sodium (ALEVE) 220 MG Tablet Take 220 mg by mouth 2 times daily as needed. (Patient not taking: Reported on 07/31/2023) ondansetron (ZOFRAN) 4 MG Tablet Take 1-2 Tablets by mouth every 8 hours as needed for Nausea - 1stline. (Patient not taking: Reported on 07/31/2023) 20 Tablet 0 polyethylene glycol (MIRALAX) 17 GM/SCOOP Powder Take 17 g by mouth every morning. 17 g = 1 scoop. Dissolve in 4 -8 oz of water or other liquid. PSYLLIUM HUSK PO Take by mouth as needed. Turmeric 500 MG Tablet Take by mouth 3 times daily. (Patient not taking: Reported on 07/31/2023) No current facility-administered medications on file prior to visit. Past Medical History Positives Diagnosis Date Adenomatous colon polyp Arthritis Diverticulitis 07/17/2019 Past Surgical History Past Surgical History: Procedure Laterality Date BLADDER SUSPENSION COLONOSCOPY N/A 03/01/2015 Procedure: COLONOSCOPY; Surgeon: Mak Daly DO; Location: [facility]; Service: COLONOSCOPY N/A 10/07/2019 Procedure: COLONOSCOPY ASCENDING COLON POLYP, TICS, HEMORRHOIDS; Surgeon: Mak Daly DO; Location: [facility]; Service: Gastroenterology FOOT SURGERY Right NERVE ENTRAPMENT HAND SURGERY Right TORN LIGAMENT HYSTERECTOMY VAGINAL - still has ovaries PARTIAL KNEE ARTHROPLASTY Right SKIN BIOPSY Left Rear left shoulder TOTAL KNEE ARTHROPLASTY Right 05/08/2018 TOTAL KNEE ARTHROPLASTY Left TUBAL LIGATION WISDOM TOOTH EXTRACTION Family History Problem Relation Age of Onset Cancer Mother Colon Cancer Mother Heart Disease Mother Other-comment Father ALS Sudden Cardiac Sister 40 Other-comment Sister Neurological problems Cancer Brother Prostate Cancer Brother Heart Disease Brother Cancer Brother Bladder cancer Brother Other-comment Brother Bowel resection- Dr. Stock Other-comment Brother Bowel Resection-[facility] Heart Disease Brother No Known Problems Brother Other-comment Maternal Grandmother Bowel Resection Stroke Maternal Grandfather No Known Problems Paternal Grandmother No Known Problems Paternal Grandfather No Known Problems Son No Known Problems Daughter Social History Socioeconomic History Marital status: Spouse name: Not on file Number of children: Not on file Years of education: Not on file Highest education level: Not on file Occupational History Not on file Tobacco Use Smoking status: Never Smokeless tobacco: Never Vaping Use Vaping status: Never Used Substance and Sexual Activity Alcohol use: Yes Comment: 12 whiteclaws a week Drug use: No Sexual activity: Yes Partners: Male Other Topics Concern Not on file Social History Narrative Not on file Social Determinants of Health Financial Resource Needs: Not on file Food Insecurity Needs: Not on file Transportation Needs: Not on file Physical Activity: Not on file Stress: Not on file Social Integration: Not on file Intimate Partner Violence: Not on file Housing Stability: Not on file No results found for this or any previous visit from the past 365 days. No results found for this or any previous visit from the past 365 days. No results found for this or any previous visit from the past 365 days. Review of Systems: Review of Systems Constitutional: Negative. HENT: Negative. Eyes: Negative. Respiratory: Negative. Cardiovascular: Negative. Gastrointestinal: Positive for abdominal pain, constipation and nausea. Genitourinary: Negative. Musculoskeletal: Positive for joint pain. Skin: Negative. Neurological: Negative. Endo/Heme/Allergies: Negative. Psychiatric/Behavioral: Negative. All other systems reviewed and are negative. Pertinent items are noted in HPI. All other systems were reviewed and were negative. Objective: VITALS: BP (!) 137/99 Pulse 100 Temp 96.8 ??F (36 ??C) (Other (See Comment)) Resp 16 Ht 5' 9 (1.753 m) Wt 225 lb (102.1 kg) SpO2 98% BMI 33.23 kg/m?? BMI: Body mass index is 33.23 kg/m??. Physical Exam Vitals and nursing note reviewed. Constitutional: Appearance: Normal appearance. HENT: Head: Normocephalic and atraumatic. Right Ear: External ear normal. Left Ear: External ear normal. Nose: Nose normal. Mouth/Throat: Mouth: Mucous membranes are moist. Pharynx: Oropharynx is clear. Eyes: Extraocular Movements: Extraocular movements intact. Conjunctiva/sclera: Conjunctivae normal. Pupils: Pupils are equal, round, and reactive to light. Neck: Thyroid: No thyromegaly. Cardiovascular: Rate and Rhythm: Regular rhythm. Heart sounds: Normal heart sounds. Pulmonary: Effort: Pulmonary effort is normal. No respiratory distress. Breath sounds: Normal breath sounds. Abdominal: General: Bowel sounds are normal. There is no distension. Palpations: Abdomen is soft. Tenderness: There is no tenderness. Hernia: No hernia is present. Musculoskeletal: General: No deformity. Normal range of motion. Cervical back: Normal range of motion and neck supple. Comments: Orthopedic scars Skin: General: Skin is warm and dry. Capillary Refill: Capillary refill takes less than 2 seconds. Findings: No rash. Neurological: General: No focal deficit present. Mental Status: She is alert and oriented to person, place, and time. Coordination: Coordination is intact. Gait: Gait is intact. Psychiatric: Mood and Affect: Mood and affect normal. Behavior: Behavior normal. Thought Content: Thought content normal. Cognition and Memory: Memory normal. Judgment: Judgment normal. By: Lane Stock MD; 07/21/2024, 9:42 AM CDT Attending Physician: Lane Stock MD Primary Care Physician: PINKY TEE MD documented in this encounter OR Notes * OR Surgeon - Lane Stock MD - 07/21/2024 10:37 AM CDT Colonoscopy Procedure Note Procedure: Colonoscopy --screening- aborted Procedure(s): COLONOSCOPY--unable to advance past sigmoid colon, procedure aborted Pre-operative Diagnosis: History of tubular noma 2019, diverticulitis attack in 2023 Post-operative Diagnosis: Tight turn at the rectosigmoid junction, unable to advance despite positional changes Indications: previous adenomatous polyp, history of diverticulitis 2023 Sedation: Propofol Pre-Procedure Physical: Current Facility-Administered Medications Medication Dose Route Frequency Provider Last Rate Last Admin lactated ringers infusion 20 mL/hr Intravenous Continuous Lane Stock MD 20 mL/hr at 07/21/24 0917 20 mL/hr at 07/21/24 0917 Facility-Administered Medications Ordered in Other Encounters Medication Dose Route Frequency Provider Last Rate Last Admin propofol (DIPRIVAN) injection Intravenous CONTINUOUS (in OR) Jose Eduardo Hui APRN, WEB CONTENT SPECIALIST Stopped at 07/21/24 1035 BP (!) 137/99 Pulse 100 Temp 96.8 ??F (36 ??C) (Other (See Comment)) Resp 16 Ht 5' 9 (1.753 m) Wt 225 lb (102.1 kg) SpO2 98% BMI 33.23 kg/m?? Airway: normal Heart: normal S1 and S2 Lungs: clear Abdomen: soft, nontender, normal bowel sounds Mental Status: awake and alert; oriented to person, place, and time ASA Class: 2 Procedure Details Informed consent was obtained for the procedure, including sedation. Risks of perforation, hemorrhage, adverse drug reaction and aspiration were discussed. The patient was placed in the left lateral decubitus position. Based on the pre- procedure assessment, including review of the patient's medicalhistory, medications, allergies, and review of systems, she had been deemed to be an appropriate candidate for conscious sedation; she was therefore sedated with the medications listed below. The patient was monitored continuously with ECG tracing, pulse oximetry, blood pressure monitoring, and direct observations. A rectal examination was performed. The variable-stiffness pediatric colonoscope was inserted into the rectum and advanced under direct vision to the a distance of 20 cm. The quality of the colonic preparation was good. A careful inspection was made as the colonoscope was withdrawn, including a retroflexed view of the rectum; findings and interventions are described below. Appropriate photodocumen tation was obtained. Findings: -Unable to advance the colonoscope past 20 cm at the rectosigmoid junction. EBL: 0 mL Specimens: No specimens collected Complications: None; patient tolerated the procedure well. Disposition: PACU - hemodynamically stable. Condition: stable Attending Attestation: I was present and scrubbed for the entire procedure Impression: -Stricture at the rectosigmoid junction Recommendations: -Will likely need surgical intervention documented in this encounter Miscellaneous Notes * Interdisciplinary - Kathryn Stafford RN - 07/21/2024 11:27 AM CDT Patient has completed phase II of recovery and is ready for discharge. Discharge instructions were reviewed. Patient taken by wheelchair to exit and discharged to BROTHER (support person) via PERSONAL VEHICLE (mode of transportation). * Plan of Care - Kathryn Stafford RN - 07/21/2024 8:58 AM CDT Problem: Adult Inpatient Plan of Care Goal: Plan of Care Review Outcome: Ongoing (see interventions/notes) Flowsheets (Taken 07/21/2024 9870) Plan of Care Reviewed With: patient Progress: no change Today's Goal: go home today Outcome Evaluation: patient ready for procedure Does the patient need assistance with discharge and/or transitioning to the next level of care?: No, no needs anticipated Goal: Optimal Comfort and Wellbeing Outcome: Ongoing (see interventions/notes) Goal: Readiness for Transition of Care Outcome: Ongoing (see interventions/notes) * Interdisciplinary - Shalini Hernandez RN - 07/04/2024 9:37 AM CDT Images from the original note were not included. GI PRE-SURGICAL TESTING INSTRUCTIONS- PLEASE READ This is NOT your PREP INSTRUCTIONS, those come from your doctor who is performing your procedure. IF YOU EXPERIENCE SIGNS OR SYMPTOMS OF ILLNESS WITHIN 10 DAYS TO YOUR SCHEDULED PROCEDURE OR IF YOUCAN'T KEEP YOUR APPOINTMENT, PLEASE CALL YOUR PROCEDURAL DOCTOR'S OFFICE. DO NOT CALL PRE- SURGICALTESTING. Currently, your procedure is scheduled for 07/21/24 Colonoscopy Your doctor has ordered [x] MONITORED SEDATION [] GENERAL It is not safe for you to drive yourself following your procedure. You must have an adult maintenance truck driver (18 yrs or older) arranged in advance of your procedure who can listen to your discharge instructions with you and can stay with your if needed for 24 hrs following your procedure, for your safety. If you are using public transportation, you must have an adult ( 18 yrs or older) to accompany you. FAILURE TO MAKE THESE ARRANGEMENTS IN ADVANCE MAY RESULT IN CANCELLATION OF YOUR PROCEDURE ON THE DAY OF. DO NOT: Smoke, vape or chew for 24 hours prior to the procedure Drink alcohol 24 hours prior to the procedure Bring any valuables or money with you Wear makeup or jewelry. Remove all body piercings Shave operative area. DO: Bathe or shower the night before or the day of your procedure Wear comfortable clothes, that are easy to change in and out of. Wear safe non-slip shoes Bring a list of current medications, dosages and any eyrt-yri-vxjohaa medication (such as herbs, oils, supplements) or medication bottles. Please enter through the EMERGENCY ENTRANCE DOORS if arriving prior to 8 AM or you are in need of awheelchair. If arriving after 8 AM, enter through the FRONT ENTRANCE DOORS and follow the art to your right until you reach registration. Registration may ask for your photo ID and insurance card. Registration will direct you to the elevator which will take [facility] located on 2nd floor. The nurses will be expecting you. The nurse will have you change into a gown, get into bed, and will prepare you for the procedure. Children 16 and under must be accompanied by a parent or legal guardian in the hospital at all times. Call PST if there are problems or questions Sunday - Sunday 0830-430pm at [phone] You will get a call from the Endoscopy Dept ([phone]) a week before your procedure to give you your arrival time HOLD Herbal supplements, Iron, Multivitamins, Vitamin E, and Fish Oil Omegas for 5 days prior to the procedure. NOTHING TO EAT OR DRINK AFTER MIDNIGHT, OR ON THE MORNING OF YOUR PROCEDURE DATE! NO GUM, MINTS, WATER. FAILURE TO FOLLOW THESE INSTRUCTIONS MAY CAUSE YOUR PROCEDURE TO BE CANCELLED FOR YOUR SAFETY. Please TAKE the following medications with a SIP OF WATER on the morning of your procedure: NONE Thank you for selecting [facility] ([facility]) or your procedure. We know you have a choice ofr your healthcare and we are pleased to prvide you with this service. Our [place] at [facility] is to: Serve with the Greatest Care and Love. We are not employees of [facility] we are [employer] [employer] driven to provide care based on our [place], Vision and Values. Please do not hesitate to let us know if you have any questions or concerns. May God Bless you and we look forward to serving you. Your Perioperative Team. documented in this encounter Plan of Treatment Upcoming Encounters Date Type Department Care Team (Late st Contact Info) Description 07/22/2024 3:30 PM CDT Office Visit [facility] - General Surgery [facility] #[address] [address] [address] Stock MD #[address] [address] documented as of this encounter Procedures Procedure Name Priority Date/Time Associated Diagnosis Comments GI IMAGING - COLONOSCOPY Routine 07/21/2024 8:51 AM CDT documented in this encounter Results * GI IMAGING - COLONOSCOPY (07/21/2024 8:51 AM CDT) Lane Stock MD [facility] DIAGNOSTIC ORDERABLES Final Result documented in this encounter Visit Diagnoses Not on filedocumented in this encounter Administered Medications Inactive Administered Medications - up to 3 most recent administrations Medication Order MAR Action Action Date Dose Rate Site lactated ringers infusion at 20 mL/hr, Intravenous, CONTINUOUS, Starting on Sun07/21/24 at 0930, Until Sun07/21/24 at 1229, PRE-OP (SURGERY) New Bag 07/21/2024 9:17 AM CDT 20 mL/hr 20 mL/hr documented in this encounter Active and Recently Administered Medications Times are shown in CDT. Continuous Medication Order 07/19/2024 07/20/2024 07/21/2024 lactated ringers infusion at 20 mL/hr, Intravenous, CONTINUOUS, Starting on Sun07/21/24 at 0930, Until Sun07/21/24 at 1229, PRE-OP (SURGERY) 0917 (New Bag - Prov ider: Maddy Chris RN)1017 (Continued by Anesthesia - Provider: Jose Eduardo Hui APRN, WEB CONTENT SPECIALIST)1100 (Stopped - Provider: Kathryn Stafford RN) documented in this encounter Care Teams Frame Wirer Relationship Specialty Start Date End Date Pinky Tee MD [address] [place] [address] PCP - General Family Medicine 11/29/21 Lane Stock MD #[address] [address] Consulting Physician Colon and Rectal Surgery 07/24/23 documented as of this encounter
--- OUTSIDE RECORDS SUMMARY | 2024-07-22 11:04 | XMS_ITS | Encounter Summary ---
Author Organization [facility] Address [address] [place] [address] Phone Care Team Providers Care Machine Setter Name Role Phone Pinky Tee MD Primary Care Provider [phone] Stock MD Unavailable Reason for Referral * Radiology Services (Routine) - Closed Specialty Diagnoses / Procedures Referred By Cheri t Referred To Contact Radiology Procedures GI IMAGING - COLONOSCOPY Lane Stock MD #[address] [address] Phone: tel: fax: Referral ID Status Reason Start Date Expiration Date Visits Re quested Visits Authorized [id number] Closed 07/21/2024 1 1 Reason for Visit * Auth/Cert (Routine) Specialty Diagnoses / Procedures Referred By Contac t Referred To Contact Diagnoses HISTORY OF COLON POLYPS Procedures COLONOSCOPY Lane Stock MD #[address] [address] Phone: tel: fax: Referral ID Status Reason Start Date Expiration Date Visits Re quested Visits Authorized [id number] 1 1 Encounter Details Date Type Department Care Team (Latest Contact Info) Description 07/21/2024 8:48 AM CDT - 07/21/2024 11:28 AM CDT Hospital Encounter [facility] GI Lab Preop/Pacu II [address] [place] [address] Lane Stock [facility] [address] [address] Discharge Disposition: Discharged to home or Selfcare Social History Tobacco Use Types Packs/Day Years [...] WORK, UNLESS INSTRUCTED OTHERWISE. Call doctor's office ([phone]) or go to Emergency room for: Difficulty Breathing, Headache Or Visual Disturbances Persistent Dizziness Or Light-Headedness Persistent Nausea and Vomiting Temperature greater then 100.0 Significant abdominal pain, chest pain, or bleeding. Here at [facility] we strive to provide [...] envelope is provided. Thank you for choosing [facility]. documented in this encounter [...] documented in this encounter H&P Notes * Laen Stock MD - 07/21/2024 9:42 AM CDT [...] Total Knee Arthroplasty (Left); Skin Biopsy (Left); Early Tooth Extraction; and Tubal Ligation. SHx: She [...] by mouth 2 times daily as needed. Dibgywg-Pygvyfwhh-Pdfxdtu D 500-250-125 MG-MG-UNIT Tablet 07/14/2024 Yes Yes [...] on antibiotics and improved. History of colonoscopy 2020, tubular adenoma, recommended for 5 year follow-up [...] I was asked to see by PINKY ETE MD for diverticulitis. She had an attack [...] see above. She is going down to [place]. 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 Sqliuet-Jnmilvfyj-Vbkuuio D 500-250-125 MG-MG-UNIT Tablet Take by mouth [...] Procedure: COLONOSCOPY; Surgeon: Mak Daly DO; Location: [facility] GI LAB; Service: COLONOSCOPY N/A 10/07/2019 Procedure: COLONOSCOPY ASCENDING COLON POLYP, TICS, HEMORRHOIDS; Surgeon: Mak Daly DO; Location: [facility] GI [facility]; Service: Gastroenterology FOOT SURGERY Right [...] injection Intravenous CONTINUOUS (in OR) Jose Eduardo Hui, VARIETY SAW OPERATOR, FENCE INSTALLER Stopped at 07/21/24 1035 BP (!) 137/99 [...] Outcome: Ongoing (see interventions/notes) Flowsheets (Taken 07/21/2024 0858) Plan of Care Reviewed With: patient Progress: [...] your procedure. You must have an adult stud driver (18 yrs or older) arranged in [...] list of current medications, dosages and any dwxi-otx-qyotpqi medication (such as herbs, oils, supplements) or [...] or questions Sunday - Sunday 0830-430pm at [phone] You will get a call from the Endoscopy Dept ([phone]) a week before your procedure to give [...] your procedure: NONE Thank you for selecting [facility] ([facility]) or your procedure. We know you have a choice ofr your healthcare and we are pleased to prvide you with this service. Our [place] at [facility] is to: Serve with the Greatest Care and Love. We are not employees of [facility] we are [employer] driven to provide care based on our [place], Vision and Values. Please do not hesitate [...] [facility] - General Surgery - [place] #[address] [address] [address] Stock MD #[address] [address] documented as of this encounter Procedures Procedure Name Priority Date/Time Associated Diagnosis Comments GI IMAGING - COLONOSCOPY Routine 07/21/2024 8:51 AM CDT documented in this encounter Results * GI IMAGING - COLONOSCOPY (07/21/2024 8:51 AM CDT) Lane Stock MD [facility] DIAGNOSTIC ORDERABLES Final Result documented in this encounter Visit Diagnoses Diagnosis Diverticulitis of large intestine without perforation or abscess without bleeding- Primary Diverticulitis of colon (without mention of hemorrhage) documented in this encounter Administered Medications Inactive Administered [...] Anesthesia - Provider: Jose Eduardo Hui APRN, FENCE INSTALLER)1100 (Stopped - Provider: Kathryn Stafford RN) documented in this encounter Care Teams Machine Setter Relationship Specialty Start Date End Date Pinky Tee MD [address] [place] [address] PCP - General Family Medicine 11/29/21 Lane Stock MD #[address] [address] Consulting Physician Colon and Rectal Surgery 07/24/23 documented as of this encounter
--- OUTSIDE RECORDS SUMMARY | 2024-07-22 11:04 | XMS_ITS | Encounter Summary ---
Author Organization [facility] Address [address] [facility] [address] [place] [address] Phone Care Team Providers Care Supervisor Whipped Topping Name Role Phone Viky Girard MD Primary Care Provider [phone] Antonio Stafford MD Primary Care Provider [phone] Encounter Details Date Type Department Care Team (Late st Contact Info) Description 04/13/2017 Orders Only [facility] ProviderKai MD [facility] [place] [address] Social History Tobacco Use Types Packs/Day Years Used Date Smoking Tobacco: Never Alcohol Use Standard Drinks/Week Comments Yes 0 (1 standard drink = 0.6 oz pur e alcohol) Comments Unknown Sex and Gender Information Value Date Recorded Sex Assigned at Not on file Legal Sex Female 2:48 AM INFORMATION ASSURANCE OFFICER Gender Identity Not on file Sexual Orientation Not on file documented as of this encounter Plan of Treatment Not on file documented as of this encounter Procedures Procedure Name Priority Date/Time Associated Diagnosis Comments DISCHARGE LABORATORY CUMULATIVE REPORT 04/13/2017 12:00 AM INFORMATION ASSURANCE OFFICER documented in this encounter Results * DISCHARGE LABORATORY CUMULATIVE REPORT (04/13/2017 12:00 AM INFORMATION ASSURANCE OFFICER) Narrative 04/13/2017 12:00 AM INFORMATION ASSURANCE OFFICER Ordered by an unspecified provider. us Historical Provider LAB BLOOD ORDERABLES Meaghan l Result documented in this encounter Visit Diagnoses Not on filedocumented in this encounter Additional Health Concerns Infection Onset Date Last Indicated Resolved Time COVID: Suspected 02/04/2020 02/04/2020 02/06/2020 8:46 AM INFORMATION ASSURANCE OFFICER COVID19 02/04/2020 02/04/2020 02/18/2020 3:07 AM INFORMATION ASSURANCE OFFICER COVID: Recovered Comment:Added based on recent COVID infection. 02/18/2020 02/20/2020 06/17/2020 3:05 AM C DT documented as of this encounter Care Teams Supervisor Whipped Topping Relationship Specialty Start Date End Date Viky Girard MD PCP - General 05/19/16 04/21/21 Antonio Stafford MD PCP - General 04/22/21 documented as of this encounter
--- OUTSIDE RECORDS SUMMARY | 2024-07-22 11:04 | XMS_ITS | CONTINUITY OF CARE DOCUMENT ---
Author Name bolivar lutz Address Unknown Organization [facility] Address [address] [place] [address] Phone [phone] Care Team Providers Care Events Director Name Role Phone Mac COOK, Jovani Unavailable RANDAL COOK, PINKY Unavailable [phone] RANDAL COOK, PINKY Unavailable [phone] PROBLEMS Condition Status Date Provider Notes Preoperative cardiovascular evaluation for colon surgry active Satya Hodges Screening for hyperlipidemia active Satya napier Family history of sudden cardiac active Satya Hodges Dizziness active Satya Hodges Shortness of breath active Satya Hodges Chest pain active Satya Hodges Cardiology examination active Jovani Watts MD HISTORY OF MEDICATION USE Medication Status Instructions Dates Provider Indications Com ments duloxetine 60 mg capsule,delayed release(DR/EC) active Take 1 by mouth once a day Darby Lay tramadol 50 mg tablet active 1 tablet by mouth three times a day for pain Darby Lay INSURANCE PROVIDERS Payer name Policy type / Coverage type [place] red constitution party ID [facility] [id number] ADVANCE DIRECTIVES Name Date DISCUSSED - NO DECISION MADE TREATMENT PLAN Date Name Performer Cardiology Satya Hodges Cardiology Satya Hodges Cardiology Satya Hodges Cardiology Satya Hodges Cardiology Satya Hodges Date Name HEMOGLOBIN A1c COMPREHENSIVE METABO LIC PANEL, W/EGFR CBC (H/H, RBC, INDIC ES, WBC, PLT) TSH, free T4, total T3 CRP, high sensitivit y LIPID PANEL EKG HISTORY OF PROCEDURES Procedure Date Procedure Name Provider Procedure Notes S tatus Device Check - Life vest Jovani Watts MD completed
--- OUTSIDE RECORDS SUMMARY | 2024-07-22 11:04 | XMS_ITS | Encounter Summary ---
Author Organization [facility] Address [address] [place] [address] Care Team Providers Care License Registration Examiner Name Role Phone Unavailable Primary Care Provider Unavailabl e Encounter Details Date Type Department Care Team (Late st Contact Info) Description 12/23/2020 Lab Requisition [facility] [address] [facility] [place] [id number] Catarino Nieves MD [address] [address] Social History Tobacco Use Types Packs/Day Years Used Date Smoking Tobacco: Never Assessed Comments Unknown Sex and Gender Information Value Date Recorded Sex Assigned at Not on file Legal Sex Female 11:46 AM REINFORCING STEEL 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 Gender Identity Not on file Sexual Orientation Not on file documented as of this encounter Plan of Treatment Not on file documented as of this encounter Procedures Procedure Name Priority Date/Time Associated Diagnosis Comments DERMATOPATHOLOGY Routine 12/20/2020 12:0 0 AM CDT documented in this encounter Results * DERMATOPATHOLOGY (12/20/2020 12:00 AM CDT) Case Report Dermatopathology Report Case: [id number] Authorizing Provider: Catarino Nieves MD Collected: 12/20/2020 12:00 AM Ordering Location: [facility] Received: 12/23/2020 09:11 AM Pathologist: Caryn Vallejo MD Specimen: Skin, left posterior neck 5:20 PM CDT DERMATOPATHOLOGY LABORATORY Final Diagnosis Specimen A. SKIN, left posterior neck: PIGMENTED SEBORRHEIC KERATOSIS (L82.1) 5:20 PM CDT DERMATOPATHOLOGY LABORATORY at 1719 CDT Clinical History Nevus SK verruca R/O atypical melanocytic lesion. 5:20 PM CDT DERMATOPATHOLOGY LABORATORY Gross Description Specimen A: Received is one formalin filled container labeled with the patient's name and designated left posterior neck. The specimen consists of a shave biopsy measuring [id number]. Jar 0. 5:20 PM CDT DERMATOPATHOLOGY LABORATORY [...] characteristic determined by the Dermatopathology Laboratory at [facility], directed by Dr. Arnol Vallejo. These tests need not be, and therefore are not, approved by the [place] Food and Drug Administration. The tests are used for clinical purposes. Billing Codes Specimen Charges Stain Charges 72039 1 5:20 PM CDT DERMATOPATHOLOGY LABORATORY Embedded Images 5:20 PM CDT DERMATOPATHOLOGY LABORATORY Pathology/Cytolog y TISSUE SPECIMEN FROM SKIN / Unknown 12/20/2020 12/23/2020 9:11 AM CDT Catarino Nieves MD LAB - PATHOLOGY/CYTOLOGY ORDERAB LES Final Result DERMATOPATHOLOGY LABORATORY [facility] - Department of Dermatology [address], [address] [phone] documented in this encounter Visit Diagnoses Not on filedocumented in this encounter
--- OUTSIDE RECORDS SUMMARY | 2024-07-22 11:04 | XMS_ITS | Encounter Summary ---
Author Organization [facility] Address [address] [place] [address] Care Team Providers Care Mutual Fund Manager Name Role Phone Unavailable Primary Care Provider Unavailabl e Encounter Details Date Type Department Care Team (Late st Contact Info) Description 08/29/2019 Lab Requisition [facility] [address] [place] [address] Dudley [place] MD Social History Tobacco Use Types Packs/Day Years Used Date Smoking Tobacco: Never Assessed Comments Unknown Sex and Gender Information Value Date Recorded Sex Assigned at Not on file Legal Sex Female 11:46 AM DIRECTOR RIVER RESTORATION Gender Identity Not on file Sexual Orientation [...] Not detected, Invalid 08/29/2019 10:40 PM CDT [facility] MICROBIOLOGY Microbiology SPECIMEN FROM NASOPHARYNGEAL STRUCTURE / Unknown Collection / Unknown 08/29/2019 8:35 AM CDT 08/29/2019 3:15 PM CDT Narrative [facility] MICRO[facility]OLOG[facility] - 08/29/2019 10:40 PM CDT This nucleic acid amplification assay performance was validated by [facility] Microbiology Laboratory. This test has been authorized [...] the authorization is terminated or revoked sooner. us Dudley [place] MD LAB - MICROBIOLOGY ORDERABL ES Final Result [facility] [address] [place] [address], [facility] [phone] documented in this encounter Visit Diagnoses Not on filedocumented in this encounter Additional Health Concerns Infection Onset Date Last Indicated Resolved Time COVID-19 Under Investigation 08/29/2019 08/29/2019 08/29/2019 10:40 PM CDT documented as of this encounter
--- OUTSIDE RECORDS SUMMARY | 2024-07-22 11:04 | XMS_ITS | Encounter Summary ---
Author Organization [facility] Address [address] [place] [address] Phone Care Team Providers Care Strip Cutting Machine Operator Name Role Phone Viky Girard MD Primary Care Provider [phone] Antonio Stafford MD Primary Care Provider [phone] Encounter Details Date Type Department Care Team (Late st Contact Info) Description 06/25/2017 Orders Only [facility] [address] [place] [phone] Viky Girard MD [address] [place] [address] Social History Tobacco Use Types Packs/Day Years Used Date Smoking Tobacco: Never Smokeless Tobacco: Never Alcohol Use Standard Drinks/Week Comments Yes 0 (1 standard drink = 0.6 oz pur e alcohol) Comments No Sex and Gender Information Value Date Recorded Sex Assigned at Not on file Legal Sex Female 2:48 AM CLOTH BLEACHING SUPERVISOR Gender Identity Not on file Sexual Orientation Not on file 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 02/18/2020 02/20/2020 06/17/2020 3:05 AM C DT documented as of this encounter Care Teams Strip Cutting Machine Operator Relationship Specialty Start Date End Date Viky Girard MD PCP - General 05/19/16 04/21/21 Antonio Stafford MD PCP - General 04/22/21 documented as of this encounter
--- OUTSIDE RECORDS SUMMARY | 2024-07-22 11:04 | XMS_ITS | Encounter Summary ---
Author Organization [facility] Address [address] [place] [address] Phone Care Team Providers Care Instructional Materials Director Name Role Phone Antonio Stafford MD Primary Care Provider [phone] [address] Stock MD Unavailable Reason for Visit * Auth/Cert (Routine) Specialty Diagnoses / Procedures Referred By Contac t Referred To Contact Diagnoses HISTORY OF COLON POLYPS Procedures COLONOSCOPY Lane Stock MD #[address] [address] Phone: tel: fax: Referral ID Status Reason Start Date Expiration Date Visits Re quested Visits Authorized [id number] 1 1 Encounter Details Date Type Department Care Team (Late st Contact Info) Description 07/21/2024 8:55 AM CDT [facility] [address] [place] [id number] Lane Stock MD #[address] [address] Arrived Social History Tobacco Use Types Packs/Day Years [...] as of this encounter Plan of Treatment Upcoming Encounters Date Type Department Care Team (Late st Contact Info) Description 07/22/2024 3:30 PM CDT Office Visit [facility] - General Surgery [facility] #[address] [address] Lane Stock MD #[address] [address] documented as of this encounter Procedures Procedure Name Priority Date/Time Associated Diagnosis Comments GI IMAGING - COLONOSCOPY Routine 07/21/2024 8:51 AM CDT documented in this encounter Results * GI IMAGING - COLONOSCOPY (07/21/2024 8:51 AM CDT) Lane Stock MD IM DIAGNOSTIC ORDERABLES Final Result documented in this encounter Visit Diagnoses Not on filedocumented in this encounter Care Teams Instructional Materials Director Relationship Specialty Start Date End Date Antonio Stafford MD [address] [place] [address] PCP - General Family Medicine 11/29/21 Lane Stock MD #[address] [address] Consulting Physician Colon and Rectal Surgery 07/24/23 documented as of this encounter
--- OUTSIDE RECORDS SUMMARY | 2024-07-22 11:04 | XMS_ITS | Clinical Summary ---
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 Given the severely elevated Minetto Sleepiness Scale score of 15, recommend a [...] KNEE ARTHROSCOPY 02/19/2009 - 02/18/2010 FOOT SURGERY [id number] Right tarsal tunnel release, nerve entrapment release, [...] the patient's symptoms. 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 Not on file Not on file [...] 104.3 kg (230 lb) 03/17/2024 1:14 PM HIGH WORKER Height 175.3 cm (5' 9) 03/17/2024 1:14 PM HIGH WORKER Body Mass Index 33.97 03/17/2024 1:14 PM HIGH WORKER Plan of Treatment Health Maintenance Due Date Last Done Comments Colon Cancer Screening-Colonoscopy 1962 Hepatitis B Screening 1980 Breast Cancer Screening-Mammogram 10/08/2020 10/09/2019, 08/09/2018, 06/07/2017 Depression Screening 06/21/2021 06/21/2020, 04/12/19 19 Regular Well Visit/Exam 18-64 06/21/2021 06/21/2020, 10/01/2019, 04/03/2018, Additional history exists Covid-19 Vaccine ( season) 2023 12/24/2021, 12/24/2020, 06/04/2020, Additional history exists Influenza Vaccine (Season Ended) 2024 11/27/2022, 12/02/2021, 11/23/2020, Additional history exists DTaP/Tdap/Td Vaccine [...] as needed Medical Devices Implanted Type Area Aircraft Armorer Device Identifier Shelf Expiration Date Model / Serial / Lot Depuy Orthopaed[employer] Inc [id number] Attune Cementless Rotate Platform Knee 5 Baseplate Tibial - [id number] Implanted:Qty: 1 on 05/08/2018 by Shiraz No MD at [facility] [employer] 06/19/2027 [id number] / / [id number] Dep[employer] [id number] Attune Cruciate Retain Cementless Knee Right 5 Component Femoral - [id number] Implanted:Qty: 1 on 05/08/2018 by Shiraz No MD at [facility] [employer] 09/19/2027 [id number] / / [id number] [employer] [id number] Palacos R+G High Viscosity Cement Bone Gentamicin Arthroplasty - [id number] Implanted:Qty: 1 on 05/08/2018 by Shiraz No MD at [facility] [employer] 09/18/2020 [id number] / / [id number] Depuy Orth[employer] [id number] Attune 38mm Cemented Medialize Knee Dome Patellar Aox Sterile - [id number] Implanted:Qty: 1 on 05/08/2018 by Shiraz No MD at [facility] Right: Knee [employer] 12/19/2022 [id number] / / [id number] Dep[employer] [id number] Attune 6mm Cruciate Retaining Rotate Platform Knee 5 Insert - [id number] Implanted:Qty: 1 on 05/08/2018 by Shiraz No MD at [facility] Right: Knee [employer] 10/19/2021 [id number] / / [id number] Procedures Procedure Name Priority Date/Time Associated Diagnosis Comments SCREENING MAMMOGRAM 2D BILATERAL Schedule Routine, Read Routine (OP Routine) 10/09/2019 8:15 AM CDT Encounter for screening for malignant neoplasm of breast HEPATITIS C ANTIBODY Routine 04/26/2018 9:30 AM HIGH WORKER Preoperative testing THINPAP, REFLEX HPV ALL [...] * Hepatitis C antibody (04/26/2018 9:30 AM HIGH WORKER) Hep C Ab Negative Negative [facility] Comment:Testing performed by : [facility], [address] [place] [address], [place]., [address] Blood specimen (specimen) 04/26/2018 9:30 AM HIGH WORKER 04/26/2018 4:11 PM HIGH WORKER Narrative [facility] - 04/26/2018 5:17 PM HIGH WORKER us Shiraz No MD LAB MICROBIOLOGY - GENERAL O RDERABLES Final Result [facility] 1 [facility] Department [place] [address] * ThinPrep Pap, Reflex HPV all pth [...] Risk HPV DNA testing was not performed. 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 08/14/2012 1:06 PM CDT Viky Girard MD LAB PATHOLOGY ORDERABLES F inal Result [facility] HISTORICAL RESULTS from Last 3 Months or Most Recently Relevant to Health Maintenance Insurance [facility] CHOICE PLUS [facility] CHOICE PLUS [facility] Advance Directives For more information, please contact: [phone] * Full Code (Latest Code Status on File) Date Activated Date Inactivated Comments 05/08/2018 6:56 PM 05/09/2018 8:46 PM Care Teams Credit Reference Clerk Relationship Specialty Start Date End Date Antonio Stafford MD PCP - General 04/22/21
--- OUTSIDE RECORDS SUMMARY | 2024-07-22 11:04 | XMS_ITS | Encounter Summary ---
Author Organization [facility] Address [address] [place] [address] Phone Care Team Providers Care Market Research Specialist Name Role Phone Antonio Stafford MD Primary Care Provider [phone] [address] Stock MD Unavailable Reason for Referral * Other (Routine) - Open Specialty Diagnoses / Procedures Referred By Contac t Referred To Contact General Surgery Diagnoses Sigmoid diverticulitis Procedures GENERAL SURGERY PROCEDURE Lane Stock MD #[address] [address] Phone: tel: fax: Referral ID Status Reason Start Date Expiration Date Visits Re quested Visits Authorized [id number] Open 07/22/2024 1 1 Encounter Details Date Type Department Care Team (Late st Contact Info) Description 07/22/2024 Telephone [facility] - General Surgery - [place] #[address] [phone] Lane Stock MD #[address] [address] Social History Tobacco Use Types Packs/Day Years [...] on file documented as of this encounter Miscellaneous Notes * Telephone Encounter - Lane Stock MD - 07/22/2024 8:10 AM CDT Placing order for laparoscopic possible open sigmoid colectomy for diverticulosis and severe stricture of the sigmoid colon documented in this encounter Plan of Treatment Upcoming Encounters Date Type Department Care Team (Late st Contact Info) Description 07/22/2024 3:30 PM CDT Office Visit [facility] - General Surgery - [place] #[address] [address] [address] Stock MD #[address] [address] Scheduled Orders Name Type Priority Associated Diagnoses Orde r Schedule GENERAL SURGERY PROCEDURE Procedures Routine Sigmoid diverticulitis Expected: 07/22/2024, Expires: 07/23/2025 documented as of this encounter Visit Diagnoses Diagnosis Sigmoid diverticulitis- Primary Diverticulitis of colon (without mention of hemorrhage) documented in this encounter Care Teams Market Research Specialist Relationship Specialty Start Date End Date Antonio Stafford MD [address] [place] [address] PCP - General Family Medicine 11/29/21 Lane Stock MD #[address] [address] Consulting Physician Colon and Rectal Surgery 07/24/23 documented as of this encounter
--- OUTSIDE RECORDS SUMMARY | 2024-07-22 11:04 | XMS_ITS | Clinical Summary ---
Author Organization [facility] Address [address] [place] [address] Care Team Providers Care Linux Admin Engineer Name Role Phone Unavailable Primary Care Provider Unavailabl e Source Comments [facility],non-owned Affiliates and Associated Physician Practices is amultiple site organization consisting of ambulatory clinics and hospital sitesin [place], [place], [place] and [place]. This disclosure is being madepursuant to the Care Everywhere program and may not contain all information available regarding this patient. Last updated 17.[facility] [employer] Social History Tobacco Use Types Packs/Day Years Used Date Smoking Tobacco: Never Assessed Comments Unknown Sex and Gender Information Value Date Recorded Sex Assigned at Not on file Legal Sex Female 11:46 AM CONSULTING UTILITY FORESTER Gender Identity Not on file Sexual Orientation [...] SCREENING 1960 LIPID TESTING 1962 MAMMOGRAM 1962 HIV SCREENING 1977 HEPATITIS C SCREENING 11/28/1980 DTAP/TDAP/TD VACCINES (1 - Tdap) 1981 PNEUMOCOCCAL VACCINE 50+ (1 of 1 - PCV) 2012 ZOSTER VACCINE (1 of 2) 2012 COVID-19 VACCINE (1 - season) 2023 DEPRESSION SCREENING 02/20/2024 INFLUENZA VACCINE (Season Ended) 2024 11/19/2018, 11/26/2017, 11/25/2017, Additional history exists Respiratory Syncytial Virus (RSV) Vaccine Pt: or [...]
--- OUTSIDE RECORDS SUMMARY | 2024-07-22 11:04 | XMS_ITS | Encounter Summary ---
Author Organization [id number] Care Team Providers Care Digital Account Director Name Role Phone Antonio Stafford MD Primary Care Provider [phone] Lane Stock MD Unavailable Encounter Details Date Type Department Care Team (Latest Contact Info) Description 07/21/2024 Travel Social History Tobacco Use Types Packs/Day Years [...] [facility] - General Surgery - [place] [address] [address] [phone] [address] Stock MD [address] [address] [address] documented as of this encounter Visit Diagnoses Not on filedocumented in this encounter Care Teams Digital Account Director Relationship Specialty Start Date End Date Antonio Stafford MD [address] [place] [address] PCP - General Family Medicine 11/29/21 Lane Stock MD #[address] [address] Consulting Physician Colon and Rectal Surgery 07/24/23 documented as of this encounter
[2024-07-22 21:35] LABS: Hematocrit 44.6 % (37.0-47.0); Hemoglobin 13.5 g/dL (12.0-15.0); Mean Corpuscular HGB Conc 30.3 g/dl (32-36); Mean Corpuscular Hemoglobin 27.8 pg (26-34); Mean Platelet Volume 10.4 fl (7.4-10.4); Platelet Count Result 336 k/mm3 (150-375); Red Blood Count 4.85 M/mm3 (4.2-5.4); Red Cell Distribution Width 14.9 % (11.5-14.5); White Blood Count 6.3 K/mm3 (4.5-10.0)
[2024-07-22 22:48] LABS: CRP < 0.5 mg/dL (<1.0); Cholesterol 212 mg/dL (0-200); HDL Direct 59 mg/dL; Triglycerides 107 mg/dL (<150)
[2024-07-22 22:58] LABS: Free T4 Free Thyroxine 1.05 ng/dL (0.78-2.19)
[2024-07-22 23:01] LABS: Alanine Aminotransferase 21 U/L (6-35); Albumin Level 4.6 g/dL (3.5-5.1); Alkaline Phosphatase 83 U/L (38-126); Anion Gap 11 mmol/L (4-12); Aspartate Amino Transferase 56 U/L (14-36); Bilirubin,Total 0.3 mg/dL (0.2-1.3); Blood Urea Nitrogen 14 mg/dL (7-17); Calcium 9.3 mg/dL (8.4-10.2); Carbon Dioxide 22 mmol/L (22-30); Chloride 103 mmol/L (98-107); Estimated Glomerular Filt Rate > 60; Glucose 83 mg/dL (65-110); Potassium 3.9 mmol/L (3.4-5.0); Sodium 136 mmol/L (137-145)
[2024-07-22 23:13] LABS: LDL Cholesterol Direct 107 mg/dL
[2024-07-22 23:38] LABS: Hemoglobin A1C 5.1 % (<5.7)
== END 2024-07-22 10:43 | disposition home or self-care (01) ==
LOC: ANHBWCLAB 10:44
PROVIDERS: PCP Family Medicine; Visit Provider Internal Medicine Cardiovascular Disease
DX: R06.02 Shortness of breath (principal); R07.9 Chest pain, unspecified; R42 Dizziness and giddiness; Z13.220 Encounter for screening for lipoid disorders; Z82.41 Family history of sudden cardiac death
CPT/HCPCS: 36415; 80053; 80061; 83036; 84439; 84443; 84481; 85027; 86140

== ENCOUNTER 2024-09-16 08:53 | Outpatient (CLI) | payer BC, SELFPAY ==
--- OUTSIDE RECORDS SUMMARY | 2024-09-16 09:03 | XMS_ITS | Encounter Summary ---
Author Organization [facility] Address [address] [place] [address] Care Team Providers Care Ornamental Brick Installer Name Role Phone Viky Girard MD Primary Care Provider [phone] Antonio Stafford MD Primary Care Provider [phone] Reason for Visit * Reason Onset Date Comments Prior Auth 10/16/2018 Diclofenac Encounter Details Date Type Department Care Team (Late st Contact Info) Description 10/16/2018 Telephone [facility] [address] [facility] [address] [place] [address] [place] [address] [place] [address], [place] [address] Prior Auth (Diclofenac) Social History Tobacco Use [...] on file Legal Sex Female 2:48 AM GRAD INTERN Gender Identity Not on file Sexual Orientation [...] COVID: Suspected 02/04/2020 02/04/2020 02/06/2020 8:46 AM GRAD INTERN COVID19 02/04/2020 02/04/2020 02/18/2020 3:07 AM GRAD INTERN COVID: Recovered Comment:Added based on recent COVID infection. 02/18/2020 02/20/2020 06/17/2020 3:05 AM C DT documented as of this encounter Care Teams Ornamental Brick Installer Relationship Specialty Start Date End Date Viky Girard MD PCP - General 05/19/16 04/21/21 Antonio Stafford MD PCP - General 04/22/21 documented as of this encounter
--- OUTSIDE RECORDS SUMMARY | 2024-09-16 09:03 | XMS_ITS | Encounter Summary ---
Author Organization [facility] Address [address] [place] [address] Phone Care Team Providers Care Motorcoach Operator Name Role Phone Viky Girard MD Primary Care Provider [phone] Antonio Stafford MD Primary Care Provider [phone] Encounter Details Date Type Department Care Team (Late st Contact Info) Description 06/09/2020 Orders Only [facility] [address] [place] [phone] Viky Girard MD [address] [place], [place] [id number] Social History Tobacco Use Types Packs/Day Years Used Date Smoking Tobacco: Never Smokeless Tobacco: Never Alcohol Use Standard Drinks/Week Comments Yes 0 (1 standard drink = 0.6 oz pur e alcohol) 2-3xs a week PHQ-2 Answer Date Recorded PHQ-2 Score 0 10/09/2018 Comments No Sex and Gender Information Value Date Recorded Sex Assigned at Not on file Legal Sex Female 2:48 AM FIELD ACCOUNT DIRECTOR Gender Identity Not on file Sexual Orientation Not on file 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
--- OUTSIDE RECORDS SUMMARY | 2024-09-16 09:03 | XMS_ITS | Clinical Summary ---
Author Organization [facility] Address [address] [place] [phone] Care Team Providers Care Arterial Embalmer Name Role Phone Antonio Stafford MD Primary Care Provider [phone] Allergies No known active allergies Medications acetaminophen-c [...] (04/12/2018): Added automatically from request for surgery [id number] Arthritis of back 05/08/2017 Overview (05/24/2020): 8 mm L3-4 spondylolisthesis April 2020 x-rays at [facility] Hx of adenomatous colonic polyps 07/05/2013 [...] the patient's symptoms. Given the severely elevated Walton Sleepiness Scale score of 15, recommend a [...] KNEE ARTHROSCOPY 02/19/2009 - 02/18/2010 FOOT SURGERY [id number] Right tarsal tunnel release, nerve entrapment release, [...] the patient's symptoms. 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 file Not on file Not [...] 104.3 kg (230 lb) 03/17/2024 1:14 PM FUEL OPERATOR Height 175.3 cm (5' 9) 03/17/2024 1:14 PM FUEL OPERATOR Body Mass Index 33.97 03/17/2024 1:14 PM FUEL OPERATOR Plan of Treatment Health Maintenance Due Date Last Done Comments Colon Cancer Screening-Colonoscopy 1962 Hepatitis B Screening 1980 Breast Cancer Screening-Mammogram 10/08/2020 10/09/2019, 08/09/2018, 06/07/2017 Depression Screening 06/21/2021 06/21/2020, 04/12/19 19 Regular Well Visit/Exam 18-64 06/21/2021 06/21/2020, 10/01/2019, 04/03/2018, Additional history exists Covid-19 Vaccine ( season) 2023 12/24/2021, 12/24/2020, 06/04/2020, Additional history exists Influenza Vaccine (#1) 2024 , 12/02/2021, 11/23/2020, Additional history exists DTaP/Tdap/Td Vaccine [...] as needed Medical Devices Implanted Type Area Industrial Refrigeration Mechanic Device Identifier Shelf Expiration Date Model / Serial / Lot Depuy Orthopa[employer] [id number] Attune Cementless Rotate Platform Knee 5 Baseplate Tibial - [id number] Implanted:Qty: 1 on 05/08/2018 by Shiraz No MD at [facility] [employer] 06/19/2027 [id number] / / [id number] [employer] [id number] Attune Cruciate Retain Cementless Knee Right 5 Component Femoral - [id number] Implanted:Qty: 1 on 05/08/2018 by Shiraz No MD at [facility] [employer] 09/19/2027 [id number] / / [id number] [employer] [id number] Palacos R+G High Viscosity Cement Bone Gentamicin Arthroplasty - [id number] Implanted:Qty: 1 on 05/08/2018 by Shiraz No MD at [facility] [employer] 09/18/2020 [id number] / / [id number] [employer] [id number] Attune 38mm Cemented Medialize Knee Dome Patellar Aox Sterile - [id number] Implanted:Qty: 1 on 05/08/2018 by Shiraz No MD at [facility] Right: Knee [employer] 12/19/2022 [id number] / / [id number] [employer] [id number] Attune 6mm Cruciate Retaining Rotate Platform Knee 5 Insert - [id number] Implanted:Qty: 1 on 05/08/2018 by Shiraz No MD at [facility] Right: Knee [employer] 10/19/2021 [id number] / / [id number] Procedures Procedure Name Priority Date/Time Associated Diagnosis Comments SCREENING MAMMOGRAM 2D BILATERAL Schedule Routine, Read Routine (OP Routine) 10/09/2019 8:15 AM CDT Encounter for screening for malignant neoplasm of breast HEPATITIS C ANTIBODY Routine 04/26/2018 9:30 AM FUEL OPERATOR Preoperative testing THINPAP, REFLEX HPV ALL PTH [...] * Hepatitis C antibody (04/26/2018 9:30 AM FUEL OPERATOR) Hep C Ab Negative Negative [facility] ([place]) Comment:Testing performed by : [facility], [address] [place] [address], [place]., [address] Blood specimen (specimen) 04/26/2018 9:30 AM FUEL OPERATOR 04/26/2018 4:11 PM FUEL OPERATOR Narrative [facility] - 04/26/2018 5:17 PM FUEL OPERATOR us Shiraz No MD LAB MICROBIOLOGY - GENERAL O RDERABLES Final Result [facility] 1 [facility] Department [place] [address] * ThinPrep Pap, Reflex HPV all pth [...] Risk HPV DNA testing was not performed. 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 08/14/2012 1:06 PM CDT Viky Girard MD LAB PATHOLOGY ORDERABLES F inal Result [facility] HISTORICAL RESULTS from Last 3 Months or Most Recently Relevant to Health Maintenance Insurance [facility] H[facility]/PPO Address: [address] [address] [place] [address] [facility] CHOICE [facility] H[facility]/PPO Address: [address] [address] [place] [address] [facility] Advance Directives For more information, please contact: [phone] * Full Code (Latest Code Status on File) Date Activated Date Inactivated Comments 05/08/2018 6:56 PM 05/09/2018 8:46 PM Care Teams Arterial Embalmer Relationship Specialty Start Date End Date Antonio Stafford MD PCP - General 04/22/21
--- OUTSIDE RECORDS SUMMARY | 2024-09-16 09:03 | XMS_ITS | Encounter Summary ---
Author Organization [facility] Address [address] [place] [address] Phone Care Team Providers Care Tip Puncher Name Role Phone Viky Girard MD Primary Care Provider [phone] Antonio Stafford MD Primary Care Provider [phone] Encounter Details Date Type Department Care Team (Late st Contact Info) Description 10/11/2020 Orders Only [facility] [address] [place] [phone] Viky Girard MD [address] [place], [place] [id number] Social History Tobacco Use Types Packs/Day Years [...] on file Legal Sex Female 2:48 AM HADOOP JAVA DEVELOPER Gender Identity Not on file Sexual Orientation Not on file 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 Author CCM Chronic Pain Care Plan Chronic Care Management Julia Leung, Alina Hale, RN Note: Problem: Chronic Pain Goals: 1. [...] on filedocumented in this encounter Care Teams Tip Puncher Relationship Specialty Start Date End Date Viky Girard MD PCP - General 05/19/16 04/21/21 Antonio Stafford MD PCP - General 04/22/21 documented as of this encounter
--- OUTSIDE RECORDS SUMMARY | 2024-09-16 09:03 | XMS_ITS | Encounter Summary ---
Author Organization [facility] Address [address] [place] [address] Phone Care Team Providers Care Overlay Plastician Name Role Phone Antonio Stafford MD Primary Care Provider [phone] Lane Stock MD Unavailable Encounter Details Date Type Department Care Team (Late st Contact Info) Description 09/01/2024 Results Follow-Up [facility] - General Surgery - [place] #[address] [phone] Lane Stock MD #[address] [address] Pathology Surgical Social History Tobacco Use Types Packs/Day Years Used Date Smoking Tobacco: Never Smokeless Tobacco: Never Alcohol Use Standard Drinks/Week Comments Not Currently 12 (1 standard drink = 0.6 oz pu re alcohol) Social Connection and Isolation Panel Answer Date Recorded In a typical week, how many times do you talk on the phone with family, friends, or neighbors? Patient declined 08/25/2024 How often do you get togethe r with friends or relatives? Patient declined 08/25/2024 How often do you attend yazidism or jewish serv ices? Patient declined 08/25/2024 Do you belong to any clubs o r organizations such as yazidism groups, unions, fraternal or athletic groups, or school groups? Patient declined 08/25/2024 How often do you attend meet ings of the clubs or organizations you belong to? Patient declined 08/25/2024 Are you , , di vorced, , never , or living with a partner? Patient declined 08/25/2024 AUDIT-C Answer Date Recorded Q1: How often do you have a drink containing alc ohol? Patient declined 08/25/2024 Q2: How many drinks containi ng alcohol do you have on a typical day when you are drinking? Patient declined 08/25/2024 Q3: How often do you have si x or more drinks on one occasion? Patient declined 08/25/2024 Overall Financial Resource Strain (CARDIA) Answe r Date Recorded How hard is it for you to pa y for the very basics like food, housing, medical care, and heating? Patient declined 08/25/2024 [facility] - Occupational Stress Questionnaire Answer Date Recorded Do you feel stress - tense, restless, nervous, or anxious, or unable to sleep at night because your mind is troubled all the time - these days? Patient declined 08/25/2024 Exercise Vital Sign Answer Date Recorde d On average, how many days pe r week do you engage in moderate to strenuous exercise (like a brisk walk)? Patient declined On average, how many minutes do you engage in exercise at this level? Patient declined 08/25/2024 Hunger Vital Sign Answer Date Recorded Within the past 12 months, y ou worried that your food would run out before you got the money to buy more. Patient declined Within the past 12 months, t he food you bought just didn't last and you didn't have money to get more. Patient declined 08/2024 PRAPARE - Transportation Answer Date Re corded In the past 12 months, has l ack of transportation kept you from medical appointments or from getting medications? Patient declined 08/25/2024 In the past 12 months, has l ack of transportation kept you from meetings, work, or from getting things needed for daily living? Patient declined 08/25/2024 Housing Stability Vital Sign Answer Georgi e Recorded In the last 12 months, was t here a time when you were not able to pay the mortgage or rent on time? Patient declined 08/26/19 25 In the past 12 months, how m any times have you moved where you were living? 1 08/25/2024 At any time in the past 12 m [facility], were you homeless or living in a long term (including now)? Patient declined 08/25/2024 [facility] Utilities Answer Date Recorded In the past 12 months has th e electric, gas, oil, or water company threatened to shut off services in your home? Patient declined 08/25/2024 Sexually Active Control Partners Comments Yes Male Comments No Sex and Gender Information Value Date Recorded Sex Assigned at Not on file Legal Sex Female 10:31 PM CDT Gender Identity Not on file Sexual Orientation Not on file documented as of this encounter Progress Notes * Lane Stock MD - 09/01/2024 12:13 PM CDT Called patient at 09/01/2024 12:13 PM CDT. Pathology reviewed. Doing well otherwise, having BM, kacy po. Min pain. documented in this encounter Plan of Treatment Upcoming Encounters Date Type Department Care Team (Late st Contact Info) Description 09/23/2024 3:15 PM CDT [facility] - General Surgery - [place] #[address] [phone] [address] Stock MD #[address] [address] 02/02/2025 10:30 AM DESK INTERVIEWER Hospital [facility] [address] [place] [phone] [address] Stock MD #[address] [address] 02/02/2025 10:30 AM DESK INTERVIEWER - 02/02/2025 11:00 AM DESK INTERVIEWER Surgery [facility] [address] [place] [address] Lane Stock MD #[address] [address] COLONOSCOPY Scheduled Procedures Name Priority Associated Diagnoses Date/Ti me COLONOSCOPY HISTORY OF COLON POLYPS 02/02/2025 10:30 AM DESK INTERVIEWER documented as of this encounter Visit Diagnoses Not on filedocumented in this encounter Additional Health Concerns Infection Onset Date Last Indicated Resolved Time C. difficile Rule-Out 09/05/2024 09/05/20242024 4:25 PM CDT documented as of this encounter Care Teams Overlay Plastician Relationship Specialty Start Date End Date Antonio Stafford MD [address] [place] [address] PCP - General Family Medicine 11/29/21 Lane Stock MD #[address] [address] Consulting Physician Colon and Rectal Surgery 07/24/23 documented as of this encounter
--- OUTSIDE RECORDS SUMMARY | 2024-09-16 09:03 | XMS_ITS | Referral Summary ---
Author Organization [facility] Address [address] [place] [phone] Care Team Providers Care Chemical Waste Management Technician Name Role Phone Antonio Stafford MD Primary Care Provider [phone] Allergies No known active allergies Medications acetaminophen-c [...] (04/12/2018): Added automatically from request for surgery [id number] Arthritis of back 05/08/2017 Overview (05/24/2020): 8 mm L3-4 spondylolisthesis April 2020 x-rays at [facility] Hx of adenomatous colonic polyps 07/05/2013 [...] the patient's symptoms. Given the severely elevated Sherwood Sleepiness Scale score of 15, recommend a [...] on file Legal Sex Female 2:48 AM LANGUAGE TRANSLATOR Gender Identity Not on file Sexual Orientation [...] 104.3 kg (230 lb) 03/17/2024 1:14 PM LANGUAGE TRANSLATOR Height 175.3 cm (5' 9) 03/17/2024 1:14 PM LANGUAGE TRANSLATOR Body Mass Index 33.97 03/17/2024 1:14 PM LANGUAGE TRANSLATOR Plan of Treatment Not on file Goals [...] as needed Medical Devices Implanted Type Area Power Plant Operator Device Identifier Shelf Expiration Date Model / Serial / Lot [employer] [id number] Attune Cementless Rotate Platform Knee 5 Baseplate Tibial - [id number] Implanted:Qty: 1 on 05/08/2018 by Shiraz No MD at [facility] [employer] 06/19/2027 [id number] / / [id number] [employer] [id number] Attune Cruciate Retain Cementless Knee Right 5 Component Femoral - [id number] Implanted:Qty: 1 on 05/08/2018 by Shiraz No MD at [facility] [employer] 09/19/2027 [id number] / / [id number] [employer] [id number] Palacos R+G High Viscosity Cement Bone Gentamicin Arthroplasty - [id number] Implanted:Qty: 1 on 05/08/2018 by Shiraz No MD at [facility] [employer] 09/18/2020 [id number] / / [id number] [employer] [id number] Attune 38mm Cemented Medialize Knee Dome Patellar Aox Sterile - [id number] Implanted:Qty: 1 on 05/08/2018 by Shiraz No MD at [facility] Right: Knee [employer] 12/19/2022 [id number] / / [id number] [employer] [id number] Attune 6mm Cruciate Retaining Rotate Platform Knee 5 Insert - [id number] Implanted:Qty: 1 on 05/08/2018 by Shiraz No MD at [facility] Right: Knee [employer] 10/19/2021 [id number] / / [id number] Procedures Procedure Name Priority Date/Time Associated Diagnosis Comments SCREENING MAMMOGRAM 2D BILATERAL Schedule Routine, Read Routine (OP Routine) 10/09/2019 8:15 AM CDT Encounter for screening for malignant neoplasm of breast HEPATITIS C ANTIBODY Routine 04/26/2018 9:30 AM LANGUAGE TRANSLATOR Preoperative testing THINPAP, REFLEX HPV ALL PTH [...] 1: Negative PATIENT LETTER SENT us Kathryn eKlley MD IMG MAMMO PROCEDURES Final Result * Hepatitis C antibody (04/26/2018 9:30 AM LANGUAGE TRANSLATOR) Hep C Ab Negative Negative ELKE HERRERA ([place]) Comment:Testing performed by : [facility], [address] [place] [address], [place] [address] Blood specimen (specimen) 04/26/2018 9:30 AM LANGUAGE TRANSLATOR 04/26/2018 4:11 PM LANGUAGE TRANSLATOR Narrative ELKE HERRERA ([facility]) - 04/26/2018 5:17 PM LANGUAGE TRANSLATOR us Shiraz No MD LAB MICROBIOLOGY - GENERAL O RDERABLES Final Result ELKE HERRERA ([place]) [facility] [place] [address] * ThinPrep Pap, Reflex HPV all pth [...] Risk HPV DNA testing was not performed. 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 08/14/2012 1:06 PM CDT us Viky Girard MD LAB PATHOLOGY ORDERABLES F inal Result [facility] HISTORICAL RESULTS from Last 3 Months or Most Recently Relevant to Health Maintenance Insurance [facility] CHOICE PLUS [facility] Advance Directives For more information, please contact: [phone] * Full Code (Latest Code Status on File) Date Activated Date Inactivated Comments 05/08/2018 6:56 PM 05/09/2018 8:46 PM Care Teams Chemical Waste Management Technician Relationship Specialty Start Date End Date Antonio Stafford MD PCP - General 04/22/21
--- OUTSIDE RECORDS SUMMARY | 2024-09-16 09:03 | XMS_ITS | Encounter Summary ---
Author Organization [facility] Address [address] [place] [address] Care Team Providers Care Dining Manager Name Role Phone Viky Girard MD Primary Care Provider [phone] Antonio Stafford MD Primary Care Provider [phone] Reason for Visit * Reason Onset Date Comments Prior Auth 11/06/2018 Diclofenac 1% Ge l Encounter Details Date Type Department Care Team (Late st Contact Info) Description 11/06/[address] [facility] [address] [facility] 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 02/18/2020 02/20/2020 06/17/2020 3:05 AM C DT documented as of this encounter Care Teams Dining Manager Relationship Specialty Start Date End Date Viky Girard MD PCP - General 05/19/16 04/21/21 Antonio Stafford MD PCP - General 04/22/21 documented as of this encounter
--- OUTSIDE RECORDS SUMMARY | 2024-09-16 09:03 | XMS_ITS | Encounter Summary ---
Author Organization [facility] Address [address] [facility] [address] [place] [address] Phone Care Team Providers Care Barrel Coater Name Role Phone Viky Girard MD Primary Care Provider [phone] Antonio Stafford MD Primary Care Provider [phone] Encounter Details Date Type Department Care Team (Late st Contact Info) Description 04/13/2017 Orders Only [facility] ProviderKai [place] [address] Social History Tobacco Use Types Packs/Day Years Used Date Smoking Tobacco: Never Alcohol Use Standard Drinks/Week Comments Yes 0 (1 standard drink = 0.6 oz pur e alcohol) Comments Unknown Sex and Gender Information Value Date Recorded Sex Assigned at Not on file Legal Sex Female 2:48 AM 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 us Historical Provider LAB BLOOD ORDERABLES Meaghan l Result documented in this encounter Visit Diagnoses Not on filedocumented in this encounter Additional Health Concerns Infection Onset Date Last Indicated Resolved Time COVID: Suspected 02/04/2020 02/04/2020 02/06/2020 8:46 AM ASSISTANT ATTORNEY GENERAL COVID19 02/04/2020 02/04/2020 02/18/2020 3:07 AM ASSISTANT ATTORNEY GENERAL COVID: Recovered Comment:Added based on recent COVID infection. 02/18/2020 02/20/2020 06/17/2020 3:05 AM C DT documented as of this encounter Care Teams Barrel Coater Relationship Specialty Start Date End Date Viky Girard MD PCP - General 05/19/16 04/21/21 Antonio Stafford MD PCP - General 04/22/21 documented as of this encounter
--- OUTSIDE RECORDS SUMMARY | 2024-09-16 09:03 | XMS_ITS | Encounter Summary ---
Author Organization [facility] Address [address] [place] [address] Phone Care Team Providers Care Ferris Wheel Operator Name Role Phone Viky Girard MD Primary Care Provider [phone] Antonio Stafford MD Primary Care Provider [phone] Encounter Details Date Type Department Care Team (Late st Contact Info) Description 06/25/2017 Orders Only [facility] [address] [place] [phone] Viky Girard MD [address] [place] [address] Social History Tobacco Use Types Packs/Day Years Used Date Smoking Tobacco: Never Smokeless Tobacco: Never Alcohol Use Standard Drinks/Week Comments Yes 0 (1 standard drink = 0.6 oz pur e alcohol) Comments No Sex and Gender Information Value Date Recorded Sex Assigned at Not on file 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 Gender Identity Not on file Sexual Orientation Not on file 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 Not on file Not on file Not on fi le documented as of this encounter Plan of Treatment Not on file documented as of this encounter Procedures Procedure Name Priority Date/Time Associated Diagnosis Comments SCAN - RADIOLOGY/IMAGING 06/25/2017 11:37 AM CDT documented in this encounter Results * SCAN - RADIOLOGY/IMAGING (06/25/2017 11:37 AM CDT) Anatomical Region Laterality Modality Other Viky Girard MD Final Resu lt documented in this encounter Visit Diagnoses Not on filedocumented in this encounter Additional Health Concerns Infection Onset Date Last Indicated Resolved Time COVID: Suspected 02/04/2020 02/04/2020 02/06/2020 8:46 AM POWDERED METAL SUPERVISOR COVID19 02/04/2020 02/04/2020 02/18/2020 3:07 AM POWDERED METAL SUPERVISOR COVID: Recovered Comment:Added based on recent COVID infection. 02/18/2020 02/20/2020 06/17/2020 3:05 AM C DT documented as of this encounter Care Teams Ferris Wheel Operator Relationship Specialty Start Date End Date Viky Girard MD PCP - General 05/19/16 04/21/21 Antonio Stafford MD PCP - General 04/22/21 documented as of this encounter
--- OUTSIDE RECORDS SUMMARY | 2024-09-16 09:04 | XMS_ITS | Clinical Summary ---
Author Organization [facility] Address [address] [place] [address] Care Team Providers Care Hematology Nurse Educator Name Role Phone Unavailable Primary Care Provider Unavailabl e Source Comments [facility],non-owned Affiliates and Associated Physician Practices is amultiple site organization consisting of ambulatory clinics and hospital sitesin [place], [place], [place] and [place]. This disclosure is being madepursuant to the Care Everywhere program and may not contain all information available regarding this patient. 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
--- OUTSIDE RECORDS SUMMARY | 2024-09-16 09:04 | XMS_ITS | Clinical Summary ---
Author Organization [facility] Address [address] [facility], [address] [address] Phone Care Team Providers Care Document Clerk Name Role Phone Antonio Stafford MD Primary Care Provider [phone] Stock MD Unavailable Allergies No known active allergies Medications PSYLLIUM HUSK PO Take by mouth as needed. Active Calcium-Magnesium -Vitamin D 500-250-125 MG-MG-UNIT Tablet Take by mouth every morning. Active ondansetron (ZOFRAN) 4 MG Tablet Take 1-2 Tablets by mouth every 8 hours as needed for Nausea - 1st line. 20 Tablet 022 Active Additional Information Patient not taking.Reported on 08/06/2024 DULoxetine (CYMBALTA) [address] Particles Take 60 mg by mouth every morning. Active estradiol (ESTRACE) 0.1 MG/GM Cream 025 Active acetaminophen (TYLENOL) 325 MG Tablet Take 1 Tablet by mouth every 6 hours as needed for Fever (for temperature greater than 100.4 F.). Do not exceed 4000 mg of acetaminophen in 24 hour from all sources. Active Ibuprofen 200 MG Capsule Take 2-3 Caps by mouth as needed. 2024 Discontinued( ed List Clean Up) Acetaminophen-Caf feine (EXCEDRIN TENSION HEADACHE PO) Take 2 Tabs by mouth 2 times daily as needed. 2024 Discontinued( ed List Clean Up) acetaminophen (TYLENOL) 500 MG Tablet Take 500 mg by mouth 2 times daily as needed. 2024 Discontinued(D uplicate Order) naproxen sodium (ALEVE) 220 MG Tablet Take 220 mg by mouth 2 times daily as needed. 2024 Discontinued( ed List Clean Up) polyethylene glycol (MIRALAX) 17 GM/SCOOP Powder Take 17 g by mouth every morning. 17 g = 1 scoop. Dissolve in 4 -8 oz of water or other liquid. 2024 Discontinued( ed List Clean Up) Turmeric 500 MG Tablet Take by mouth 3 times daily. 2024 Discontinued( ed List Clean Up) dicyclomine (BENTYL) 20 MG Tablet Take 1 Tablet by mouth every 6 hours. 30 Tablet 022 2024 Discontinued( ed List Clean Up) traMADol (ULTRAM) 50 MG Tablet Take 50 mg by mouth every 6 hours as needed. 2024 Discontinued( ed List Clean Up) neomycin 500 MG TabletIndications :Sigmoid diverticulitis Take 500mg at 2pm, 3pm, and 10pm the day before surgery. 3 Tablet 025 2024 Discontinued( ed List Clean Up) metroNIDAZOLE (FLAGYL) 500 MG TabletIndications :Sigmoid diverticulitis TAKE TWO (2) TABLETS BY MOUTH AT 2PM, 3PM, AND 10PM THE DAY BEFORE SURGERY. 6 Tablet 025 2024 Discontinued( ed List Clean Up) oxyCODONE (ROXICODONE) 5 MG TabletIndications :Diverticulitis of sigmoid colon Take 1 Tablet by mouth every 4 hours as needed for Moderate or more severe pain. 12 Tablet 025 2024 Discontinued ibuprofen (MOTRIN) 800 MG Tablet Take 1 Tablet by mouth every 8 hours for 10 days. 30 Tablet 025 2024 oxyCODONE (ROXICODONE) 5 MG TabletIndications :Diverticulitis of sigmoid colon TAKE 1 TABLET BY MOUTH EVERY FOUR (4) HOURS NEEDED FOR MODERATE OR MORE SEVERE PAIN. 12 Tablet 025 2024 Discontinued(T herapy completed) fluconazole (DIFLUCAN) 150 MG Tablet Take 1 Tablet by mouth once for 1 dose. 1 Tablet 025 2024 ciprofloxacin (CIPRO) 500 MG TabletIndications :Urinary Tract Infection Take 1 Tablet by mouth 2 times daily for 5 days. Indications: Urinary Tract Infection 10 Tablet 025 2024 Active Problems Problem Noted Date Diagnosed Date Diverticulitis of sigmoid colon 08/25/2024 Diverticulitis of large inte marsha without perforation or abscess without bleeding 07/23/2019 Pain of right heel 06/19/2017 Plantar fasciitis, right 06/19/2017 Gastrocnemius equinus, right 06/19/2017 Encounters Date Type Department Care Team Description 09/09/2024 9:45 AM CDT Office Visit [facility] General Surgery [facility] [address] [phone] Lane Stock MD Hx of colonic polyps (Primary Dx); S/P colon resection Discharge Disposition: Discharged to home or Selfcare 09/09/2024 Travel 09/05/2024 1:18 PM CDT - 09/05/2024 4:55 PM CDT [facility] [address] [place] [phone] Domingo Bethea, MARLNEE Diarrhea Discharge Disposition: Discharged to home or Selfcare 09/05/2024 Travel 09/01/2024 Results Follow-Up [facility] General [facility] #[address] [phone] Lane Stock MD Pathology Surgical 08/27/2024 [facility] Med Surg [address] [place] [phone] Lane Stock MD Medication Refill 08/25/2024 2:12 PM CDT Anesthesia Event [facility] Periop [address] [place] [address] Jose Eduardo Hui APRN, JACOB 08/25/2024 1:15 PM CDT Ancillary Procedure [facility] Gi Lab Main [address] [place] [address] Lane Stock MD 08/25/2024 1:10 PM CDT - 08/25/2024 4:10 PM CDT Surgery [facility] Periop [address] [place] [phone] Lane Stock MD LAPAROSCOPIC SIGMOID COLECTOMY 08/25/2024 10:47 AM CDT - 08/27/2024 3:15 PM CDT Hospital [facility] Med [facility]urg [address] [place] [address] Lane Stock MD Diverticulitis of large intestine without perforation or abscess without bleeding Discharge Disposition: Discharged to home or Selfcare 08/25/2024 Travel 08/06/2024 Travel 07/22/2024 3:30 PM CDT Office Visit [facility] #[address] [phone] Lane Stock MD Sigmoid diverticulosis (Primary Dx); Sigmoid stricture (HCC) Discharge Disposition: Discharged to home or Selfcare 07/22/2024 [facility] [phone] Lane Stock MD Medication Refill 07/22/2024 Telephone [facility] #[address] [phone] [address] Stock MD Need Order 07/22/2024 Travel 07/22/2024 Telephone [facility] [place] #[address] [phone] [address] Stock MD 07/21/2024 10:30 AM CDT - 07/21/2024 11:00 AM CDT Surgery [facility] Gi Lab Periop [address] [place] [address] Lane Stock MD COLONOSCOPY--unable to advance past sigmoid colon, procedure aborted 07/21/2024 10:17 AM CDT Anesthesia Event [facility] Gi Lab Periop [address] [place] [address] Jose Eduardo Hui APRN, VISUAL MANAGER 07/21/2024 8:55 AM CDT Ancillary Procedure [facility] Gi Lab Main 1 [facility] [place] [address] Lane Stock MD 07/21/2024 8:48 AM CDT - 07/21/2024 11:28 AM CDT Hospital Encounter [facility] GI Lab Preop/Pacu II [address] [place] [address] Lane Stock MD Discharge Disposition: Discharged to home or Selfcare 07/21/2024 Travel 07/04/2024 Travel from Last 3 Months Family History Medical History Relation Name Comments Cancer Brother 1 Rudolph Heart Disease Brother 1 Rudolph Prostate Cancer Brother 1 Rudolph Bladder cancer Brother 2 Roger Cancer Brother 2 Roger Other-comment Brother 2 Roger Bowel resectio nShelly Stock Heart Disease Brother 3 Himanshu Other-comment [...] declined 08/25/2024 How often do you attend hinduism or temple serv ices? Patient declined 08/25/2024 Do you belong to any clubs o r organizations such as hinduism groups, unions, fraternal or athletic groups, or school groups? Patient declined 08/25/2024 How often do you attend meet ings of the clubs or organizations you belong to? Patient declined 08/25/2024 Are you , , di vorced, , never , or living with a partner? Patient declined 08/25/2024 AUDIT-C Answer Date Recorded Q1: How often do you have a drink containing alcohol? Never 09/09/2024 Q2: How many drinks containi ng alcohol do you have on a typical day when you are drinking? Patient does not drink Q3: How often do you have si x or more drinks on one occasion? Never 09/09/2024 Overall Financial Resource Strain (CARDIA) Answe r Date Recorded How hard is it for you to pa y for the very basics like food, housing, medical care, and heating? Patient declined 08/25/2024 [facility] - Occupational Stress Questionnaire Answer Date Recorded [...] any time in the past 12 m [facility], were you homeless or living in a care home (including now)? Patient declined 08/25/2024 [facility] Utilities Answer Date Recorded In the past [...] Sign Reading Time Taken Comments Blood Pressure 124/76 09/09/2024 9:43 AM CDT Pulse 94 09/09/2024 9:43 AM CDT Temperature 36.1 C (97 F) 09/09/2024 9:43 AM CDT Respiratory Rate 16 09/05/2024 4:53 PM CDT Oxygen Saturation 98% 09/09/2024 9:43 AM CDT Inhaled Oxygen Concentration - - Weight 102.5 kg (226 lb) 09/09/2024 9:43 AM CDT Height 175.3 cm (5' 9) 09/09/2024 9:43 AM CDT Body Mass Index 33.37 09/09/2024 9:43 AM CDT Plan of Treatment Upcoming Encounters Date Type Department Care Team (Late st Contact Info) Description 09/23/2024 3:15 PM CDT Office Visit [facility] - General Surgery [facility] #[address] [phone] [address] Stock MD #[address] [address] 02/02/2025 10:30 AM CORRESPONDENCE DICTATOR Hospital [facility] Periop [address] [place] [phone] Lane Stock MD #[address] [address] 02/02/2025 10:30 AM CORRESPONDENCE DICTATOR - 02/02/2025 11:00 AM CORRESPONDENCE DICTATOR [facility] Periop [address] [place] [address] Lane Stock MD #[address] [address] COLONOSCOPY Scheduled Procedures Name Priority Associated Diagnoses Date/Ti me COLONOSCOPY HISTORY OF COLON POLYPS 02/02/2025 10:30 AM CORRESPONDENCE DICTATOR Health Maintenance Due Date Last Done Comments Cologuard 12/04/2007 Immunochemical Fecal Occult Blood 12/04/2007 Pneumococcal Immunization (50+ years) (1 of 1 - PCV) 2012 Mammogram 10/08/2020 10/09/2019, 09/20, 08/09/2018, Additional history exists Influenza Immunization (#1) 10/20/202410/21, 11/27/2022, 12/02/2021, Additional history exists Colonoscopy 07/21/2029 07/21/2024, 09/19, 03/01/2015 Colorectal Cancer Screening 07/21/2029 Respiratory Syncytial Virus (RSV) Immunization (Adult) (1 - 1-dose 75+ series) 2037 Zoster Immunization Completed 02/16/2019, 9 Hepatitis C Virus (HCV) Screening Completed 05/21/2020 DTaP/Tdap/Td Immunization Discontinued 04/24/2022, TdaP Immunization Completed 04/24/2022, 06/05/2011 SARS-COV-2 Immunization Completed 11/10/19 24, 12/24/2021, 12/24/2020, [...] Procedure Name Priority Date/Time Associated Diagnosis Comments O & P, TRAVEL HX OR IMMUNOCOMPROMISED, FECES, [place] OPE STAT 09/05/2024 3:20 PM CDT STOOL, WBC LACTOFERRIN STAT 09/05/2024 3:20 PM CDT STOOL, OVA & PARASITES (O&P) STAT 09/05/2024 3:20 PM CDT C. DIFF BY PCR STAT 09/05/2024 3:20 PM CDT C. DIFFICILE BY PCR STAT 09/05/2024 3 :20 PM CDT CULTURE, STOOL STAT 09/05/2024 3:20 PM CDT URINALYSIS REFLEX IF INDICATED BY ABNORMAL RESULTS STAT 09/05/2024 1:50 PM CDT CULTURE, URINE STAT 09/05/2024 1:50 PM CDT BLUE TOP TUBE STAT 09/05/2024 1:30 PM CDT CBC WITH AUTO DIFFERENTIAL STAT 09/05/2024 1:30 PM CDT EXTRA TUBES STAT 09/05/2024 1:30 PM CDT LIPASE STAT 09/05/2024 1:30 PM CDT CMP (COMPREHENSIVE METABOLIC PANEL) STAT 09/05/2024 1:30 PM CDT COMPLETE BLOOD COUNT (CBC) WITH DIFF STAT 09/05/2024 1:30 PM CDT CBC WITH AUTO DIFFERENTIAL Routine 08/27/2024 6:35 AM CDT COMPLETE BLOOD COUNT (CBC) WITH DIFF Routine 08/27/2024 6:35 AM CDT BASIC METABOLIC PANEL W/ CALCIUM TOTAL Routine 08/27/2024 6:35 AM CDT PATHOLOGY SURGICAL Routine 08/26/2024 9: 49 AM CDT CBC WITH AUTO DIFFERENTIAL Routine 08/26/2024 6:26 AM CDT PHOSPHORUS (PO4) Routine 08/26/2024 6:26 AM CDT MAGNESIUM (MG) Routine 08/26/2024 6:26 AM CDT COMPLETE BLOOD COUNT (CBC) WITH DIFF Routine 08/26/2024 6:26 AM CDT BASIC METABOLIC PANEL W/ CALCIUM TOTAL Routine 08/26/2024 6:26 AM CDT NERVE BLOCK Routine 08/25/2024 2:43 PM CDT INTUBATION IN OR Routine 08/25/2024 2:43 PM CDT CA SCREEN;FLEXI SIGMOIDSCOPE 08/25/2024 1:52 PM CDT SIGMOID DIVERTICULITIS Special Needs BOWEL PREP & DUNN PREP GIVEN TO PATIENT SURGERY ADMIT-ERAS PROTOCOL Hx of Diverticulitis 5ft 9in 230lb SIGMOIDOSCOPY FLEX DIAGNOSTIC 08/25/2024 1:52 PM CDT SIGMOID DIVERTICULITIS Special Needs BOWEL PREP & DUNN PREP GIVEN TO PATIENT SURGERY ADMIT-ERAS PROTOCOL Hx of Diverticulitis 5ft 9in 230lb LAP,SURG,COLECTOMY, PARTIAL, W/ANAST 08/25/2024 1:52 PM CDT SIGMOID DIVERTICULITIS Special Needs BOWEL PREP & DUNN PREP GIVEN TO PATIENT SURGERY ADMIT-ERAS PROTOCOL Hx of Diverticulitis 5ft 9in 230lb GI LAB IMAGING - FLEX SIGMOIDOSCOPY Routine 08/25/2024 1:10 PM CDT COLON CA SCRN NOT HI RSK IND 07/21/2024 10:17 AM CDT COLONOSCOPY--unable to advance past sigmoid colon, procedure aborted Case Notes 04/07 - RS FROM 04/21 TO 07/21 DUE TO SCHEDULE CONFLICT Special Needs Dx polyps COLORECTAL SCRN; HI RISK IND 07/21/2024 10:17 AM CDT COLONOSCOPY--unable to advance past sigmoid colon, procedure aborted Case Notes 04/07 - RS FROM 04/21 TO 07/21 DUE TO SCHEDULE CONFLICT Special Needs Dx polyps HI COLONOSCOPY FLX DX W/COLLJ SPEC WHEN PFRMD 07/21/2024 10:17 AM CDT COLONOSCOPY--unable to advance past sigmoid colon, procedure aborted Case Notes 04/07 - RS FROM 04/21 TO 07/21 DUE TO SCHEDULE CONFLICT Special Needs Dx polyps GI IMAGING - COLONOSCOPY Routine 07/21/2024 8:51 AM CDT from Last 3 Months Results * O & P, TRAVEL HX OR IMMUNOCOMPROMISED, FECES, [place] OPE (09/05/2024 3:20 PM CDT) Pathologist [facility] OPE, OVA AND PARASITE, MICROSCOPY, F SEE NOTE 09/12/2024 3:26 PM CDT [facility] Comment: SOURCE: STOOL, STLP OVA AND PARASITE, MICROSCOPY, F FINAL No parasites seen. Cryptosporidium, Cyclospora, and microsporidia are not readily detected by this method. Single negative specimen does not rule out parasitic infection. Test Performed by: [facility] - [address] [address] Integrated Marketing Specialist: Silverio Yepez Ph.D.; CLIA# [id number] Stool Non-Phlebotomy Collection / Unknown 09/05/2024 3:20 PM CDT 09/05/2024 4:03 PM CDT us Domingo Bethea PAC LAB SEND OUTS Meaghan l Result [facility] [place] * C. DIFF BY PCR (09/05/2024 3:20 PM CDT) C DIFF TOXIN DNA BY PCR Negative Negative, Invalid 09/05/2024 4:25 PM CDT [facility] Other STOOL SPECIMEN / Unknown Non-Phlebotomy Collection / Unknown 09/05/2024 3:20 PM CDT 09/05/2024 3:33 PM CDT Domingo Bethea PAC MICROBIOLOGY - GENER AL ORDERABLES Final Result Performing Organization Address City/[facility] Co de Phone Number [facility] #1 [place] [address] * Culture, Stool [id number] (09/05/2024 3:20 PM CDT) [facility] CULTURE RESULTS NEGATIVE FOR CAMPYLOBACTER ANTIGEN 09/07/2024 6:10 PM CDT [facility] CULTURE RESULTS SHIGA TOXIN 1 AND SHIGA TOXIN 2 NOT DETECTED 09/07/2024 6:10 PM CDT [facility] CULTURE RESULTS Moderate Probable usual flores for this specimen source 09/07/2024 6:10 PM CDT [facility] Culture STOOL SPECIMEN / Unknown Non-Phlebotomy Collection / Unknown 09/05/2024 3:20 PM CDT 09/05/2024 3:33 PM CDT Narrative [facility] - 09/07/2024 6:10 PM CDT Unless stated above as an isolate, no Salmonella, Shigella, E Coli O157, Aeromonas, or Pleisiomonas species isolated Domingo Bethea PAC MICROBIOLOGY - GENER AL ORDERABLES Final Result [facility] [address] [place] [address], [place] * (ABNORMAL) Stool, WBC Lactoferrin (09/05/2024 3:20 PM CDT) [facility] STOOL WBC LACTOFERRIN Positive( A) Negative 09/05/2024 8:43 PM CDT [facility] Other STOOL SPECIMEN / Unknown Non-Phlebotomy Collection / Unknown 09/05/2024 3:20 PM CDT 09/05/2024 3:49 PM CDT Domingo Bethea PAC BODY FLUIDS & STOOLS ORDERABLES Final Result [facility] [address] [place] [address], [place] * (ABNORMAL) Urinalysis w/ Reflex (09/05/2024 1:50 PM CDT) [facility] SPECIFIC GRAVITY 1.020 1.003 - 1.030 09/05/2024 2:35 PM CDT [facility] URINE PH 5.0 5.0 - 9.0 09/05/2024 2:35 PM CDT [facility] WBC ESTERASE 500 /uL(A) Negative 09/05/2024 2:35 PM CDT [facility] NITRITE Negative Negative 09/05/2024 2:35 PM CDT [facility] PROTEIN, RANDOM URINE 30 mg/dL(A) Negative 09/05/2024 2:35 PM CDT [facility] URINE GLUCOSE, QUAL Negative Negative 09/05/2024 2:35 PM CDT [facility] URINE KETONES Negative Negative 09/05/2024 2:35 PM CDT [facility] UROBILINOGEN Normal Normal mg/dL 09/05/2024 2:35 PM CDT [facility] URINE BLOOD 150 /uL(A) Negative freddy/ul 09/05/2024 2:35 PM CDT [facility] URINALYSIS COLOR Dark Yellow 025 2:35 PM CDT [facility] URINALYSIS CLARITY Very Cloudy 09/05/2024 2:35 PM CDT [facility] WBC (Urine) 51-150(A) Negative, 0-5 /hpf 09/05/2024 2:35 PM CDT [facility] URINE RBC'S 6-10(A) Negative, 0-2 /hpf 09/05/2024 2:35 PM CDT [facility] EPITHELIAL CELLS Moderate amount /lpf 09/05/2024 2:35 PM CDT [facility] BACTERIA, URINE Packed(A) Negative /hpf 09/05/2024 2:35 PM CDT [facility] CASTS 10-20/LPF Finely Granular Casts(A) Negative, 0-2/lpf, 3-5/lpf, 6-10/lpf, 11-20/lpf, >20/lpf, Rare Hyaline, Few Hyaline, Moderate Hyaline, Many Hyaline, Rare Granular, Few Granular, Moderate Granular, Many Granular, Few WBC, Moderate WBC , Many WBC , Rare WBC, Rare RBC, Few RBC, Moder... /lpf 09/05/2024 2:35 PM CDT [facility] Urine URINE SPECIMEN / Unknown Non-Phlebotomy Collection / Unknown 09/05/2024 1:50 PM CDT 09/05/2024 2:03 PM CDT us Domingo Bethea PAC URINE ORDERABLES Fin al Result [facility] #[address] [place] [address] * Culture, Urine (09/05/2024 1:50 PM CDT) CULTURE RESULTS ESCHERICHIA COLI 09/07/2024 3:14 PM CDT [facility] CULTURE RESULTS GRAM-NEGATIVE BACILLUS 09/07/2024 3:14 PM CDT [facility] Comment:SENSITIVITY NOT PERF ORMED CULTURE RESULTS Also mixed growth of distal urethral contaminants 09/07/2024 3:14 PM CDT [facility] Urine URINE SPECIMEN / Unknown Non-Phlebotomy Collection / Unknown 09/05/2024 1:50 PM CDT 09/05/2024 2:03 PM CDT Narrative Organism Antibiotic Method Susceptibility Escherichia coli Ampicillin [facility] IIB 4 mcg/ml: Susceptible Escherichia coli Ampicillin/sulbactam [facility] IIB <=2 mcg/ml: Susceptible Escherichia coli Cefazolin [facility] IIB <16 mcg/ml: Susceptible Escherichia coli Cefepime [facility] II[facility] <=0.12 mcg/ml: Susceptible Escherichia coli Ceftriaxone [facility] IIB <=0.25 mcg/ml: Susceptible Escherichia coli Gentamicin [facility] IIB <=1 mcg/ml: Susceptible Escherichia coli Levofloxacin [facility] II[facility] <=0.12 mcg/ml: Susceptible Escherichia coli Meropenem [facility] IIB <=0.25 mcg/ml: Susceptible Escherichia coli Nitrofurantoin [facility] IIB <=16 mcg/ml: Susceptible Escherichia coli Piperacillin/Tazobactam [facility] II B <=4 mcg/ml: Susceptible Escherichia coli Trimeth/Sulfamethoxazole [facility] I IB <=20 mcg/ml: Susceptible us Domingo Bethea PAC MICROBIOLOGY - GENER AL ORDERABLES Final Result Performing Organization Address City/[facility]/ZIP Co de Phone Number [facility] [address] [place] [address], [place] * Blue Top Tube (09/05/2024 1:30 PM CDT) Blood No Phlebotomy Charged / Unknown 09/05/2024 1:30 PM CDT 09/05/2024 2:05 PM CDT Domingo Bethea PAC HEMATOLOGY ORDERABLE S Final Result [facility] #[address] [place] [address] * (ABNORMAL) CBC with Auto Differential (09/05/2024 1:30 PM CDT) Only the most recent of3 resultswithin the time period is included. WBC 7.64 4.00 - 12.00 10(3)/mcL 09/05/2024 2:09 PM CDT [facility] RBC 4.88 3.80 - 5.30 10(6)/mcL 09/05/2024 2:09 PM CDT [facility] HEMOGLOBIN (HGB) 13.8 12.0 - 15.8 g/dL 09/05/2024 2:09 PM CDT [facility] HEMATOCRIT (HCT) 42.7 36.0 - 47.0 % 09/05/2024 2:09 PM CDT [facility] MCV 87.5 82.0 - 96.0 fL 09/05/2024 2:09 PM CDT [facility] MCH 28.3 26.0 - 34.0 pg 09/05/2024 2:09 PM CDT [facility] MCHC 32.3 31.0 - 36.0 g/dL 09/05/2024 2:09 PM CDT [facility] PLATELET COUNT 380 140 - 440 10(3)/[facility] 09/05/2024 2:09 PM CDT [facility] RDW 13.8 11.8 - 15.5 % 09/05/2024 2:09 PM CDT [facility] MPV 10.6 9.7 - 12.4 fL 09/05/2024 2:09 PM CDT [facility] NEUTROPHILS 63.2 47.0 - 73.0 % 09/05/2024 2:09 PM CDT [facility] LYMPHOCYTES 21.7 18.0 - 42.0 % 09/05/2024 2:09 PM CDT [facility] MONOCYTES 12.0 4.0 - 12.0 % 09/05/2024 2:09 PM CDT [facility] EOSINOPHILS 1.6 0.0 - 5.0 % 09/05/2024 2:09 PM CDT [facility] BASOPHILS 0.8 0.0 - 1.0 % 09/05/2024 2:09 PM CDT [facility] IMMATURE GRANULOCYTE 0.7(H) 0.0 - 0.4 % 09/05/2024 2:09 PM CDT [facility] Comment:Immature Granulocyte s includes Metamyelocytes, Myelocytes, and Promyelocytes. ABSOLUTE NEUTROPHILS 4.83 1.60 - 7.70 10(3)/[facility] 09/05/2024 2:09 PM CDT [facility] ABSOLUTE LYMPHOCYTES 1.66 1.30 - 3.20 10(3)/[facility] 09/05/2024 2:09 PM CDT [facility] ABSOLUTE MONOCYTES 0.92 0.20 - 1.00 10(3)/[facility] 09/05/2024 2:09 PM CDT [facility] ABSOLUTE EOSINOPHIL 0.12 0.00 - 0.40 10(3)/[facility] 09/05/2024 2:09 PM CDT [facility] ABSOLUTE BASOPHILS 0.06 0.00 - 0.10 10(3)/[facility] 09/05/2024 2:09 PM CDT [facility] ABSOLUTE IMMATURE GRANULOCYTE 0.05(H) 0.00 - 0.03 10 (3) [facility]. 09/05/2024 2:09 PM CDT [facility] NRBC PER 100 WBC 0 09/06/19 25 2:09 PM CDT [facility] Blood Venipuncture / Unknown 09/05/2024 1:30 PM CDT 09/05/2024 2:03 PM CDT us Domingo Bethea PAC HEMATOLOGY ORDERABLE S Final Result [facility] [address] [place] [address] * Lipase (09/05/2024 1:30 PM CDT) LIPASE 24 8 - 78 U/L 09/05/2024 2:26 PM CDT [facility] Blood Venipuncture / Unknown 09/05/2024 1:30 PM CDT 09/05/2024 2:03 PM CDT Domingo Small Neema PAC CHEMISTRY ORDERABLES Final Result [facility] [address] [place] [address] * (ABNORMAL) CMP (09/05/2024 1:30 PM CDT) SODIUM 137 136 - 145 mmol/L 09/05/2024 2:26 PM CDT [facility] POTASSIUM 3.8 3.5 - 5.1 mmol/L 09/05/2024 2:26 PM CDT [facility] CHLORIDE 103 98 - 107 mmol/L 09/05/2024 2:26 PM CDT [facility] CO2, VENOUS 19(L) 22 - 30 mmol/L 09/05/2024 2:26 PM CDT [facility] ANION GAP 18.8(H) <18.0 mmol/L 09/05/2024 2:26 PM CDT [facility] GLUCOSE 102(H) 70 - 99 mg/dL 09/05/2024 2:26 PM CDT [facility] BUN 12 10 - 20 mg/dL 09/05/2024 2:26 PM CDT [facility] CREATININE, BLOOD 0.64 0.60 - 1.00 mg/dL 09/05/2024 2:26 PM CDT [facility] BUN/CREATININE RATIO 19 12 - 20 ratio 09/05/2024 2:26 PM CDT [facility] TOTAL PROTEIN 8.8(H) 6.0 - 8.0 g/dL 09/05/2024 2:26 PM CDT [facility] ALBUMIN 4.6 3.5 - 5.0 g/dL 09/05/2024 2:26 PM CDT [facility] A/G RATIO 1.1 1.0 - 2.2 09/05/2024 2:26 PM CDT [facility] CALCIUM 9.2 8.7 - 10.5 mg/dL 09/05/2024 2:26 PM CDT [facility] T BILI 0.3 0.2 - 1.2 mg/dL 09/05/2024 2:26 PM CDT [facility] SGOT (AST) 31 <43 U/L 09/05/2024 2:26 PM CDT [facility] SGPT (ALT) 26 <56 U/L 09/05/2024 2:26 PM CDT [facility] ALKALINE PHOSPHATASE 86 40 - 150 U/L 09/05/2024 2:26 PM CDT [facility] GFR, ESTIMATED >60 >=60 09/05/2024 2:26 PM CDT [facility] Comment: Creatinine Clearance is the preferred criteria for selecting drug dose adjustments in renally impaired patients. The GFR is provided as additional pertinent clinical information. GFR is reported in mL/min/1.73 sq m. Calculation based on the Chronic Kidney Disease Epidemiology Collaboration (CKD- EPI) equation refit without adjustment for race. GFR, EST. >60 >=60 025 2:26 PM CDT [facility] GFR, EST. NONAFRICAN >60 >=60 09/05/2024 2:26 PM CDT [facility] Blood Venipuncture / Unknown 09/05/2024 1:30 PM CDT 09/05/2024 2:03 PM CDT us Domingo Bethea PAC CHEMISTRY ORDERABLES Final Result [facility] [address] [place] [address] * (ABNORMAL) BMP with Ca, Total (08/27/2024 6:35 AM CDT) Only the most recent of2 resultswithin the time period is included. SODIUM 140 136 - 145 mmol/L 08/27/2024 7:39 AM CDT [facility] POTASSIUM 3.8 3.5 - 5.1 mmol/L 08/27/2024 7:39 AM CDT [facility] CHLORIDE 113(H) 98 - 107 mmol/L 08/27/2024 7:39 AM T [facility] CO2, VENOUS 23 22 - 30 mmol/L 08/27/2024 7:39 AM CDT [facility] ANION GAP 7.8 <18.0 mmol/L 08/27/2024 7:39 AM CDT [facility] GLUCOSE 82 70 - 99 mg/dL 08/27/2024 7:39 AM T [facility] BUN 10 10 - 20 mg/dL 08/27/2024 7:39 AM [facility] CREATININE, BLOOD 0.63 0.60 - 1.00 mg/dL 08/27/2024 7:39 AM [facility] BUN/CREATININE RATIO 16 12 - 20 ratio 08/27/2024 7:39 AM [facility] CALCIUM 7.8(L) 8.7 - 10.5 mg/dL 08/27/2024 7:39 AM T [facility] GFR, ESTIMATED >60 >=60 08/27/2024 7:39 AM [facility] Comment: Creatinine Clearance is the preferred criteria for selecting drug dose adjustments in renally impaired patients. The GFR is provided as additional pertinent clinical information. GFR is reported in mL/min/1.73 sq m. Calculation based on the Chronic Kidney Disease Epidemiology Collaboration (CKD- EPI) equation refit without adjustment for race. GFR, EST. >60 >=60 025 7:39 AM [facility] GFR, EST. NONAFRICAN >60 >=60 08/27/2024 7:39 AM [facility] Blood Venipuncture / Unknown 08/27/2024 6:35 AM CDT 08/27/2024 7:[address] Stock MD CHEMISTRY ORDERABLES Final Resul t [facility] [place] [address] * Pathology Surgical (08/26/2024 9:49 AM CDT) Case Report Surgical Pathology Report Case: [id number] Authorizing Provider: Lane Stock MD Collected: 08/26/2024 09:49 AM Ordering Location: [facility] Received: 08/26/2024 09:50 AM [facility] Pathologist: Jojo Farrar MD PhD Specimen: Colon, SIGMOID COLON (OPEN PART IS SIGMOID, STAPLED PART IS RECTUM) 08/28/2024 1:16 PM CDT [facility] FINAL DIAGNOSIS Sigmoid colon, laparoscopic colectomy: - Diverticulosis with diverticulitis and fibrosis 08/28/2024 1:16 PM CDT [facility] at 1316 CDT Pre-Operative Diagnosis SIGMOID DIVERTICULITIS 08/28/2024 1:16 PM CDT [facility] Gross Description A. SIGMOID COLON (OPEN PART IS SIGMOID, STAPLED PART IS RECTUM) The specimen presents in 1 formalin container for gross and microscopic examination labeled with the patient's name, Alana Batres. Specimen A is designated as sigmoid colon. The specimen consists of a segment of colon measuring 12.0 cm in length and 4.0 cm in diameter. The attached mesenteric fat measures 12.0 x 1.5 x 1.0 cm. The serosal surface is white-lane and smooth. The specimen is opened to show multiple areas of diverticulosis. Compo Conveyor Operator sections are submitted in cassettes A1-A2. AM Total time of formalin fixation: 37 hours and 11 minutes. 08/28/2024 1:16 PM CDT [facility] Microscopic Description Microscopic examination was performed which supports the final diagnosis. All control tissues stained appropriately. 08/28/2024 1:16 PM CDT [facility] Tissue COLON STRUCTURE / Unknown 08/26/2024 9:49 AM CDT 08/26/2024 9:[address] Stock MD PATHOLOGY/CYTOLOGY ORDERABLES Fi nal Result Performing Organization Address City/[facility]/ZIP Co de Phone Number [facility] [address] [place] [address] * PHOSPHORUS (PO4) AM (08/26/2024 6:26 AM CDT) PHOSPHORUS 4.4 2.5 - 4.5 mg/dL 08/26/2024 7:58 AM CDT [facility] Blood Venipuncture / Unknown 08/26/2024 6:26 AM CDT 08/26/2024 7:[address] Stock MD CHEMISTRY ORDERABLES Final Resul t Performing Organization Address City/[facility]/ZIP Co de Phone Number [facility] [address] [place] [address] * Magnesium (Mg) (08/26/2024 6:26 AM CDT) MAGNESIUM 2.2 1.6 - 2.6 mg/dL 08/26/2024 7:58 AM CDT [facility] Blood Venipuncture / Unknown 08/26/2024 6:26 AM CDT 08/26/2024 7:[address] Stock MD CHEMISTRY ORDERABLES Final Resul t Performing Organization Address City/[facility]/ZIP Co de Phone Number [facility] [address] [place] [address] * Nerve Block (08/25/2024 2:43 PM CDT) Narrative Jose Eduardo Hui APRN, VISUAL MANAGER - 08/25/2024 2:43 PM CDT Jose Eduardo Hui APRN, VISUAL MANAGER 08/25/2024 2:45 PM Nerve Block Staffing Performed: resident/VISUAL MANAGER Resident/VISUAL MANAGER: Jose Eduardo Hui APRN, CRNA Performed by: Jose Eduardo Hui APRN, CRNA Authorized by: Jose Eduardo Hui APRN, CRNA Patient Location: Pre-op, Prep: Chloraprep, sterile technique and surgical mask, surgical hat, sterile gloves Anesthesia laterality: BILATERAL., Block Perfomed: Other, see comments Reason for block: at surgeon's request and post-op pain management Neuraxial/Peripheral Nerve Block requested for post-operative analgesia by: Lane Stock MD Post-Operative pain expected to be inadequately managed by oral or IV medications. , Regional anesthetic expected to facilitate rehabilitation and/or timely discharge from facility., Stanley Injection Technique: Single-shot Needle type: Other Needle Gauge: 20 G Needle length: 4 in , Preanesthetic Checklist Completed: site marked, surgical consent, timeout performed, risks and benefits discussed, at surgeon's request and post-op pain management, Procedures Procedures: ultrasound guided Number of attempts: 1 Medications administered: BILATERAL ql, Narrative Start time: 08/25/2024 1:20 PM End time: 08/25/2024 2:05 PM Injection made incrementally with aspirations every 5 mL. no ultrasound evidence of intravascular and/or intraneural injection post-procedure vital signs reviewed and stable Injection Pressure normal. Yes Performed by: resident/VISUAL MANAGER Jose Eduardo Hui APRN, CRNA ANESTHESIA ORDERAB LES Final Result * Intubation in OR (08/25/2024 2:43 PM CDT) Narrative Jose Eduardo Hui APRN, CRNA - 08/25/2024 2:43 PM CDT Jose Eduardo Hui APRN, CRNA 08/25/2024 2:43 PM Intubation in OR Staffing Performed: resident/VISUAL MANAGER Resident/VISUAL MANAGER: Jose Eduardo Hui APRN, CRNA Performed by: Jose Eduardo Hui APRN, CRNA Authorized by: Jose Eduardo Hui APRN, CRNA Overall Difficulty: Easy Procedure Details Patient Position: Sniffing Ease of mask ventilation: easy Intubation Site: oral Tube Type: Standard Cuffed: yes Intubation Method: Direct laryngoscopy Cricoid Pressure: No Rapid Sequence: No Blade Used: Lebron Blade size: #2 Stylet Used: Yes Laryngeal View: Grade I Tube Size: 6.5 mmConfirmation: breath sounds and +EtCO2 Depth: 21 cm Atraumatic: Atraumatic intubation us Jose Eduardo Hui SPEEDER WORKER, VISUAL MANAGER ANESTHESIA ORDERAB LES Final Result * GI LAB IMAGING - FLEX SIGMOIDOSCOPY (08/25/2024 1:10 PM CDT) Lnae CHOI DIAGNOSTIC ORDERABLES Final Result * GI IMAGING - COLONOSCOPY (07/21/2024 8:51 AM CDT) Lane CHOI DIAGNOSTIC ORDERABLES Final Result from Last 3 Months Insurance Advance Directives * Full Code (Latest Code Status on File) Date Activated Date Inactivated Comments 08/26/2024 10:21 AM CPR-Full Treat ment: FULL ARREST: Attempt Resuscitation/CPR wit intubation and mechanical ventilation. PRE-ARREST: Use entire range of life support measures to stabilize the patient. Care Teams Document Clerk Relationship Specialty Start Date End Date Antonio Stafford MD [address] [place] [id number] PCP - General Family Medicine 11/29/21 Lane Stock MD #[address] [address] Consulting Physician Colon and Rectal Surgery 07/24/23
--- OUTSIDE RECORDS SUMMARY | 2024-09-16 09:04 | XMS_ITS | Encounter Summary ---
Author Organization [facility] Address [address] [facility] [place] [address] Care Team Providers Care Tin Pourer Name Role Phone Unavailable Primary Care Provider Unavailabl e Encounter Details Date Type Department Care Team (Late st Contact Info) Description 12/23/2020 Lab Requisition [facility] [address] [facility] [place] [id number] Catarino Nieves MD [facility] [id number] Social History Tobacco Use Types Packs/Day Years Used Date Smoking Tobacco: Never Assessed Comments Unknown Sex and Gender Information Value Date Recorded Sex Assigned at Not on file Legal Sex Female 11:46 AM 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 FIELD 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 Gender Identity Not on file Sexual Orientation Not on file documented as of this encounter Plan of Treatment Not on file documented as of this encounter Procedures Procedure Name Priority Date/Time Associated Diagnosis Comments DERMATOPATHOLOGY Routine 12/20/2020 12:0 0 AM CDT documented in this encounter Results * DERMATOPATHOLOGY (12/20/2020 12:00 AM CDT) Case Report Dermatopathology Report Case: [id number] Authorizing Provider: Catarino Nieves MD Collected: 12/20/2020 12:00 AM Ordering Location: [facility] Received: 12/23/2020 09:11 AM Pathologist: [...] specimen consists of a shave biopsy measuring 2w1a9cg. Jar 0. 5:20 PM CDT DERMATOPATHOLOGY LABORATORY [...] characteristic determined by the Dermatopathology Laboratory at [facility], directed by Dr. Arnol Vallejo. These tests need not be, and therefore are not, approved by the [place] Food and Drug Administration. The tests are used for clinical purposes. Billing Codes Specimen Charges Stain Charges 57032 1 5:20 PM CDT DERMATOPATHOLOGY LABORATORY Embedded Images 5:20 PM CDT DERMATOPATHOLOGY LABORATORY Pathology/Cytolog y TISSUE SPECIMEN FROM SKIN / Unknown 12/20/2020 12/23/2020 9:11 AM CDT us Catarino Nieves MD LAB - PATHOLOGY/CYTOLOGY ORDERAB LES Final Result DERMATOPATHOLOGY LABORATORY [facility] - Department of Dermatology [address], [address] [phone] documented in this encounter Visit Diagnoses Not on filedocumented in this encounter
--- OUTSIDE RECORDS SUMMARY | 2024-09-16 09:04 | XMS_ITS | Encounter Summary ---
Author Organization 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 This test has been authorized [...] LAB - MICROBIOLOGY ORDERABL ES Final Result [facility] [address] [place] [address], [facility] [phone] documented in this encounter Visit Diagnoses Not on filedocumented in this encounter Additional Health Concerns Infection Onset Date Last Indicated Resolved Time COVID-19 Under Investigation 08/29/2019 08/29/2019 08/29/2019 10:40 PM CDT documented as of this encounter
[2024-09-16 19:18] LABS: Add Urine Microscopic? NO; Appearance Urine Clear (Clear); Glucose Urine UA Negative (Negative); Leukocyte Esterase Ur Negative LEU/UL (Negative); Nitrate Urine Negative (Negative); Specific Grav Ur 1.022 (1.001-1.035)
== END 2024-09-16 08:54 | disposition home or self-care (01) ==
LOC: ANHBWCLAB 08:54
PROVIDERS: PCP Family Medicine; Visit Provider Family Medicine
DX: N39.0 Urinary tract infection, site not specified (principal)
CPT/HCPCS: 81003; 87086

== ENCOUNTER 2024-12-02 08:19 | Outpatient (CLI) | payer BC, SELFPAY ==
--- NOTE | ~2024-12-02 | MM_ITS ---
EXAMINATION: MM screening tamela BI w gisell HISTORY: Screening TECHNIQUE: Craniocaudal and mediolateral oblique 3-D tomosynthesis images were obtained and synthetic 2-D images were generated. CAD analysis was submitted and interpreted. COMPARISON: 06/30/2022 BREAST PARENCHYMAL COMPOSITION: The breasts are heterogeneously dense, which may obscure small masses. FINDINGS: There is no evidence of suspicious mass, calcification, or architectural distortion to suggest malignancy. There has been no suspicious interval change. IMPRESSION: 1. No mammographic evidence of malignancy. Recommend routine screening mammography in one year. BI-RADS Category 2: Benign finding(s) Reviewed, dictated and finalized at location Q. IMPRESSION: 1. No mammographic evidence of malignancy. Recommend routine screening mammogra phy in one year. BI-RADS Category 2: Benign finding(s)
--- OUTSIDE RECORDS SUMMARY | 2024-12-02 08:41 | XMS_ITS | Clinical Summary ---
Author Organization [facility] Address [address] [facility], [address] [address] Phone Care Team Providers Care Commercial Loan Officer Name Role Phone Antonio Stafford MD Primary Care Provider [phone] Stock MD Unavailable Allergies No known active allergies Medications PSYLLIUM HUSK PO Take by mouth as needed. Active Calcium-Magnes ium-Vitamin D 500-250-125 MG-MG-UNIT Tablet Take by mouth every morning. Active ondansetron (ZOFRAN) 4 MG Tablet Take 1-2 Tablets by mouth every 8 hours as needed for Nausea - 1st line. 20 Tablet 2 Active Additional Information Patient not taking.Reported on 09/30/2024 DULoxetine (CYMBALTA) [address] Particles Take 60 mg by mouth every morning. Active estradiol (ESTRACE) 0.1 MG/GM Cream 5 Active acetaminophen (TYLENOL) 325 MG Tablet Take 1 Tablet by mouth every 6 hours as needed for Fever (for temperature greater than 100.4 F.). Do not exceed 4000 mg of acetaminophen in 24 hour from all sources. Active Active Problems Problem Noted Date Diagnosed Date Diverticulitis of sigmoid colon 08/25/2024 Diverticulitis of large inte marsha without perforation or abscess without bleeding 07/23/2019 Pain of right heel 06/19/2017 Plantar fasciitis, right 06/19/2017 Gastrocnemius equinus, right 06/19/2017 Encounters Date Type Department Care Team Description 09/30/2024 9:00 AM CDT [facility] [place] [address] [address] Stock MD S/P colon resection (Primary Dx) Discharge Disposition: Discharged to home or Selfcare 09/30/2024 Travel 09/22/2024 Travel 09/09/2024 9:45 AM CDT Office Visit [facility] #[address] [phone] [address] Stock MD Hx of colonic polyps (Primary Dx); S/P colon resection Discharge Disposition: Discharged to home or Selfcare 09/09/2024 Travel 09/05/2024 1:18 PM CDT - 09/05/2024 4:55 PM CDT [facility] [address] [place] [address] Domingo Bethea, PAC Diarrhea Discharge Disposition: Discharged to home or Selfcare 09/05/2024 Travel 09/01/2024 Results Follow[facility]Up [facility] #[address] [place] [address] [address] Stock MD Pathology Surgical from Last 3 Months Family History Medical History Relation Name Comments Cancer Brother 1 Rudolph Heart Disease Brother 1 Rudolph Prostate Cancer Brother 1 Rudolph Bladder cancer Brother 2 Roger Cancer Brother 2 Roger Other-comment Brother 2 Roger Bowel resectio n- Dr. Stock Heart Disease Brother 3 Himanshu Other-comment [...] declined 08/25/2024 How often do you attend religion or druze serv ices? Patient declined 08/25/2024 Do you belong to any clubs o r organizations such as religion groups, unions, fraternal or athletic groups, or [...] medical care, and heating? Patient declined 08/25/2024 [facility] - Occupational Stress [...] any time in the past 12 m [facility], were you homeless or living in a half-way (including now)? Patient declined 08/25/2024 [facility] Utilities Answer Date Recorded In the past 12 months has th e [employer], gas, oil, or water company threatened to [...] Sign Reading Time Taken Comments Blood Pressure 136/74 09/30/2024 9:02 AM CDT Pulse 80 09/30/2024 9:02 AM CDT Temperature 36.1 C (97 F) 09/30/2024 9:02 AM CDT Respiratory Rate 16 09/05/2024 4:53 PM CDT Oxygen Saturation 99% 09/30/2024 9:02 AM CDT Inhaled Oxygen Concentration - - Weight 105.2 kg (232 lb) 09/30/2024 9:02 AM CDT Height 175.3 cm (5' 9) 09/30/2024 9:02 AM CDT Body Mass Index 34.26 09/30/2024 9:02 AM CDT Plan of Treatment Upcoming Encounters Date Type Department Care Team (Late st Contact Info) Description 02/02/2025 10:30 AM CIA AGENT [facility] [address] [place] [address] [address] Stock MD #[address] [address] 02/02/2025 10:30 AM CIA AGENT - 02/02/2025 11:00 AM CIA AGENT Surgery [facility] [address] [place] [address] Lane Stock MD #[address] [address] COLONOSCOPY Scheduled Procedures Name Priority Associated Diagnoses Date/Ti me COLONOSCOPY HISTORY OF COLON POLYPS 02/02/2025 10:30 AM CIA AGENT Health Maintenance Due Date Last Done Comments [...] WITH DIFF STAT 09/05/2024 1:30 PM CDT from Last 3 Months Results * O & P, TRAVEL HX OR IMMUNOCOMPROMISED, FECES, BROWNS OPE (09/05/2024 3:20 PM CDT) [facility] OPE, OVA AND PARASITE, MICROSCOPY, F SEE NOTE 09/12/2024 3:26 PM CDT [facility] Comment: SOURCE: STOOL, STLP OVA AND PARASITE, MICROSCOPY, F FINAL No parasites seen. Cryptosporidium, Cyclospora, and microsporidia are not readily detected by this method. Single negative specimen does not rule out parasitic infection. Test Performed by: [place] [address] Senior Analyst Programmer: Silverio Yepez Ph.D.; CLIA# [id number] Stool Non-Phlebotomy Collection / Unknown 09/05/2024 3:20 PM CDT 09/05/2024 4:03 PM CDT Domingo Bethea PAC LAB SEND OUTS Meaghan l Result [facility] * C. DIFF BY PCR (09/05/2024 3:20 PM CDT) [facility] C DIFF TOXIN DNA BY PCR Negative Negative, Invalid 09/05/2024 4:25 PM CDT [facility] Other STOOL SPECIMEN / Unknown Non-Phlebotomy Collection / Unknown 09/05/2024 3:20 PM CDT 09/05/2024 3:33 PM CDT Domingo Bethea PAC MICROBIOLOGY - GENER AL ORDERABLES Final Result [facility] #[address] [place] [address] * Culture, Stool [id number] (09/05/2024 3:20 PM CDT) CULTURE RESULTS NEGATIVE FOR CAMPYLOBACTER ANTIGEN 09/07/2024 6:10 PM CDT [facility] CULTURE RESULTS SHIGA TOXIN 1 AND SHIGA TOXIN 2 NOT DETECTED 09/07/2024 6:10 PM CDT [facility] CULTURE RESULTS Moderate Probable usual flores for this specimen source 09/07/2024 6:10 PM CDT [facility] Culture STOOL SPECIMEN / Unknown Non-Phlebotomy Collection / Unknown 09/05/2024 3:20 PM CDT 09/05/2024 3:33 PM CDT Narrative [facility] - 09/07/2024 6:10 PM CDT Unless stated above as an isolate, no Salmonella, Shigella, E Coli O157, Aeromonas, or Pleisiomonas species isolated Domingo Bethea PAC MICROBIOLOGY - GENER AL ORDERABLES Final Result Performing Organization Address [facility] Co de Phone Number [facility] [address] [place] [address], [place] * (ABNORMAL) Stool, WBC Lactoferrin (09/05/2024 3:20 PM CDT) STOOL WBC LACTOFERRIN Positive( A) Negative 09/05/2024 8:43 PM CDT [facility] Other STOOL SPECIMEN / Unknown Non-Phlebotomy Collection / Unknown 09/05/2024 3:20 PM CDT 09/05/2024 3:49 PM CDT Domingo Bethea PAC BODY FLUIDS & STOOLS ORDERABLES Final Result Performing Organization Address City/[facility]/ZIP Co de Phone Number [facility] [address] [place] [address], [place] * (ABNORMAL) Urinalysis w/ Reflex (09/05/2024 1:50 PM CDT) SPECIFIC GRAVITY 1.020 1.003 - 1.030 09/05/2024 2:35 PM CDT [facility] URINE PH 5.0 5.0 - 9.0 09/05/2024 2:35 PM CDT [facility] WBC ESTERASE 500 /uL(A) Negative 09/05/2024 2:35 PM CDT [facility] NITRITE Negative Negative 09/05/2024 2:35 PM CDT [facility] PROTEIN, RANDOM URINE 30 mg/dL(A) Negative 09/05/2024 2:35 PM CDT [facility] URINE GLUCOSE, QUAL Negative Negative 09/05/2024 2:35 PM CDT [facility] URINE KETONES Negative Negative 09/05/2024 2:35 PM CDT [facility] UROBILINOGEN Normal Normal mg/dL 09/05/2024 2:35 PM CDT [facility] URINE BLOOD 150 /uL(A) Negative freddy/ul 09/05/2024 2:35 PM CDT [facility] URINALYSIS COLOR Dark Yellow 025 2:35 PM CDT [facility] URINALYSIS CLARITY Very Cloudy 09/05/2024 2:35 PM CDT [facility] WBC (Urine) 51-150(A) Negative, 0-5 /hpf 09/05/2024 2:35 PM CDT [facility] URINE RBC'S 6-10(A) Negative, 0-2 /hpf 09/05/2024 2:35 PM CDT [facility] EPITHELIAL CELLS Moderate amount /lpf 09/05/2024 2:35 PM CDT [facility] BACTERIA, URINE Packed(A) Negative /hpf 09/05/2024 2:35 PM CDT [facility] CASTS 10-20/LPF Finely Granular Casts(A) Negative, 0-2/lpf, 3-5/lpf, 6-10/lpf, 11-20/lpf, >20/lpf, Rare Hyaline, Few Hyaline, Moderate Hyaline, Many Hyaline, Rare Granular, Few Granular, Moderate Granular, Many Granular, Few WBC, Moderate WBC , Many WBC , Rare WBC, Rare RBC, Few RBC, Moder... /lpf 09/05/2024 2:35 PM CDT [facility] Urine URINE SPECIMEN / Unknown Non-Phlebotomy Collection / Unknown 09/05/2024 1:50 PM CDT 09/05/2024 2:03 PM CDT us Domingo Bethea PAC URINE ORDERABLES Fin al Result [facility] #[address] [place] [address] * Culture, Urine (09/05/2024 1:50 PM CDT) CULTURE RESULTS ESCHERICHIA COLI 09/07/2024 3:14 PM [facility]T [facility] C[facility] RES[facility] GRAM-NEGATIVE BACILLUS 09/07/2024 3:14 PM CDT [facility] Comment:SENSITIVITY NOT PERF ORMED CULTURE RESULTS Also mixed growth of distal urethral contaminants 09/07/2024 3:14 PM CDT [facility] Urine URINE SPECIMEN / Unknown Non-Phlebotomy Collection [...] IIB <=0.25 mcg/ml: Susceptible Escherichia coli Nitrofurantoin [facility] V[facility]K IIB <=16 mcg/ml: Susceptible Escherichia coli Piperacillin/Tazobactam [facility] II B <=4 mcg/ml: Susceptible Escherichia coli Trimeth/Sulfamethoxazole [facility] I IB <=20 mcg/ml: Susceptible Domingo Bethea PAC MICROBIOLOGY - GENER AL ORDERABLES Final Result Performing Organization Address City/[facility]/ZIP Co de Phone Number [facility] [address] [place] [address], [place] * Blue Top Tube (09/05/2024 1:30 PM CDT) Blood No Phlebotomy Charged / Unknown 09/05/2024 1:30 PM CDT 09/05/2024 2:05 PM CDT Domingo Bethea PAC HEMATOLOGY ORDERABLE S Final Result Performing Organization Address City/[facility] Co de Phone Number [facility] [address] [place] [address] * (ABNORMAL) CBC with Auto Differential (09/05/2024 1:30 PM CDT) WBC 7.64 4.00 - 12.00 10(3)/mcL 09/05/2024 2:09 PM CDT [facility] RBC 4.88 3.80 - 5.30 10(6)/mcL 09/05/2024 2:09 PM CDT [facility] HEMOGLOBIN (HGB) 13.8 12.0 - 15.8 g/dL 09/05/2024 2:09 PM CDT [facility] HEMATOCRIT (HCT) 42.7 36.0 - 47.0 % 09/05/2024 2:09 PM CDT [facility] MCV 87.5 82.0 - 96.0 fL 09/05/2024 2:09 PM CDT [facility] MCH 28.3 26.0 - 34.0 pg 09/05/2024 2:09 PM CDT [facility] MCHC 32.3 31.0 - 36.0 g/dL 09/05/2024 2:09 PM CDT [facility] PLATELET COUNT 380 140 - 440 10(3)/[facility] 09/05/2024 2:09 PM CDT [facility] RDW 13.8 11.8 - 15.5 % 09/05/2024 2:09 PM CDT [facility] MPV 10.6 9.7 - 12.4 fL 09/05/2024 2:09 PM CDT [facility] NEUTROPHILS 63.2 47.0 - 73.0 % 09/05/2024 2:09 PM CDT [facility] LYMPHOCYTES 21.7 18.0 - 42.0 % 09/05/2024 2:09 PM CDT [facility] MONOCYTES 12.0 4.0 - 12.0 % 09/05/2024 2:09 PM CDT [facility] EOSINOPHILS 1.6 0.0 - 5.0 % 09/05/2024 2:09 PM CDT [facility] BASOPHILS 0.8 0.0 - 1.0 % 09/05/2024 2:09 PM CDT [facility] IMMATURE GRANULOCYTE 0.7(H) 0.0 - 0.4 % 09/05/2024 2:09 PM CDT [facility] Comment:Immature Granulocyte s includes Metamyelocytes, Myelocytes, and Promyelocytes. ABSOLUTE NEUTROPHILS 4.83 1.60 - 7.70 10(3)/mcL 09/05/2024 2:09 PM CDT [facility] ABSOLUTE LYMPHOCYTES 1.66 1.30 - 3.20 10(3)/mcL 09/05/2024 2:09 PM CDT [facility] ABSOLUTE MONOCYTES 0.92 0.20 - 1.00 10(3)/mcL 09/05/2024 2:09 PM CDT [facility] ABSOLUTE EOSINOPHIL 0.12 0.00 - 0.40 10(3)/mcL 09/05/2024 2:09 PM CDT [facility] ABSOLUTE BASOPHILS 0.06 0.00 - 0.10 10(3)/mcL 09/05/2024 2:09 PM CDT [facility] ABSOLUTE IMMATURE GRANULOCYTE 0.05(H) 0.00 - 0.03 10 (3) mcL. 09/05/2024 2:09 PM CDT [facility] NRBC PER 100 WBC 0 09/06/19 25 2:09 PM CDT [facility] Blood Venipuncture / Unknown 09/05/2024 1:30 PM CDT 09/05/2024 2:03 PM CDT Domingo Bethea PAC HEMATOLOGY ORDERABLE S Final Result Performing Organization Address City/[facility]/ZIP Co de Phone Number [facility] [address] [place] [address] * Lipase (09/05/2024 1:30 PM CDT) LIPASE 24 8 - 78 U/L 09/05/2024 2:26 PM CDT [facility] Blood Venipuncture / Unknown 09/05/2024 1:30 PM CDT 09/05/2024 2:03 PM CDT Domingo Bethea PAC CHEMISTRY ORDERABLES Final Result [facility] [address] [place] [address] * (ABNORMAL) CMP (09/05/2024 1:30 PM CDT) SODIUM 137 136 - 145 mmol/L 09/05/2024 2:26 PM CDT [facility] POTASSIUM 3.8 3.5 - 5.1 mmol/L 09/05/2024 2:26 PM CDT [facility] CHLORIDE 103 98 - 107 mmol/L 09/05/2024 2:26 PM CDT [facility] CO2, VENOUS 19(L) 22 - 30 mmol/L 09/05/2024 2:26 PM CDT [facility] ANION GAP 18.8(H) <18.0 mmol/L 09/05/2024 2:26 PM CDT [facility] GLUCOSE 102(H) 70 - 99 mg/dL 09/05/2024 2:26 PM CDT [facility] BUN 12 10 - 20 mg/dL 09/05/2024 2:26 PM CDT [facility] CREATININE, BLOOD 0.64 0.60 - 1.00 mg/dL 09/05/2024 2:26 PM CDT [facility] BUN/CREATININE RATIO 19 12 - 20 ratio 09/05/2024 2:26 PM CDT [facility] TOTAL PROTEIN 8.8(H) 6.0 - 8.0 g/dL 09/05/2024 2:26 PM CDT [facility] ALBUMIN 4.6 3.5 - 5.0 g/dL 09/05/2024 2:26 PM CDT [facility] A/G RATIO 1.1 1.0 - 2.2 09/05/2024 2:26 PM CDT [facility] CALCIUM 9.2 8.7 - 10.5 mg/dL 09/05/2024 2:26 PM CDT [facility] T BILI 0.3 0.2 - 1.2 mg/dL 09/05/2024 2:26 PM CDT [facility] SGOT (AST) 31 <43 U/L 09/05/2024 2:26 PM CDT [facility] SGPT (ALT) 26 <56 U/L 09/05/2024 2:26 PM CDT [facility] ALKALINE PHOSPHATASE 86 40 - 150 U/L 09/05/2024 2:26 PM CDT [facility] GFR, ESTIMATED >60 >=60 09/05/2024 2:26 PM CDT [facility] Comment: Creatinine Clearance is the preferred criteria for selecting drug dose adjustments in renally impaired patients. The GFR is provided as additional pertinent clinical information. GFR is reported in mL/min/1.73 sq m. Calculation based on the Chronic Kidney Disease Epidemiology Collaboration (CKD- EPI) equation refit without adjustment for race. GFR, EST. >60 >=60 025 2:26 PM CDT [facility] GFR, EST. NONAFRICAN >60 >=60 09/05/2024 2:26 PM CDT [facility] Blood Venipuncture / Unknown 09/05/2024 1:30 PM CDT 09/05/2024 2:03 PM CDT Domingo Bethea PAC CHEMISTRY ORDERABLES Final Result [facility] [address] [place] [address] from Last 3 Months Insurance Advance Directives * Full Code (Latest Code Status on File) Date Activated Date Inactivated Comments 08/26/2024 10:21 AM CPR-Full Treat ment: FULL ARREST: Attempt Resuscitation/CPR wit intubation and mechanical ventilation. PRE-ARREST: Use entire range of life support measures to stabilize the patient. Care Teams Commercial Loan Officer Relationship Specialty Start Date End Date Antonio Stafford MD PCP - General Family Medicine 11/29/21 Lane Stock MD #2 [place] [address] Consulting Physician Colon and Rectal Surgery 07/24/23
--- OUTSIDE RECORDS SUMMARY | 2024-12-02 08:41 | XMS_ITS | Encounter Summary ---
Author Organization [facility] Healthcare Address [address] [place] [address] Care Team Providers Care Director Of Surgery Name Role Phone Viky Girard MD Primary Care Provider [phone] Antonio Stafford MD Primary Care Provider [phone] Reason for Visit * Reason Onset Date Comments Prior Auth 11/06/2018 Diclofenac 1% Ge l Encounter Details Date Type Department Care Team (Late st Contact Info) Description 11/06/2018 Telephone [facility] [address] [facility] [address] [place], [place] [id number] [place] [address] [place] [address], [place] [id number] Prior Auth (Diclofenac 1% Gel) Social History [...] on file Legal Sex Female 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 02/18/2020 02/20/2020 06/17/2020 3:05 AM C DT documented as of this encounter Care Teams Director Of Surgery Relationship Specialty Start Date End Date Viky Girard MD PCP - General 05/19/16 04/21/21 Antonio Stafford MD PCP - General 04/22/21 documented as of this encounter
--- OUTSIDE RECORDS SUMMARY | 2024-12-02 08:41 | XMS_ITS | Encounter Summary ---
Author Organization [facility] Health Address [address] [place] [address] Care Team Providers Care Certified Tower Climber Name Role Phone Unavailable Primary Care Provider Unavailabl e Encounter Details Date Type Department Care Team (Late st Contact Info) Description 08/29/2019 Lab Requisition [facility] [address] [place] [address] Dudley Holland MD Social History Tobacco Use Types Packs/Day Years Used Date Smoking Tobacco: Never Assessed Comments Unknown Sex and Gender Information Value Date Recorded Sex Assigned at Not on file Legal Sex Female 11:46 AM ROOFING FOREMAN Gender Identity Not on file Sexual Orientation [...] Not detected, Invalid 08/29/2019 10:40 PM CDT [facility] Microbiology SPECIMEN FROM NASOPHARYNGEAL STRUCTURE / Unknown Collection / Unknown 08/29/2019 8:35 AM CDT 08/29/2019 3:15 PM CDT Narrative [facility] - 08/29/2019 10:40 PM CDT This nucleic acid amplification assay performance was validated by [facility]. This test has been [...] LAB - MICROBIOLOGY ORDERABL ES Final Result [facility] [address] [place] [address], [facility] [phone] documented in this encounter Visit Diagnoses Not on filedocumented in this encounter Additional Health Concerns Infection Onset Date Last Indicated Resolved Time COVID-19 Under Investigation 08/29/2019 08/29/2019 08/29/2019 10:40 PM CDT documented as of this encounter
--- OUTSIDE RECORDS SUMMARY | 2024-12-02 08:41 | XMS_ITS | Encounter Summary ---
Author Organization [facility] Address [address] [place] [address] Phone Care Team Providers Care Field Underwriter Name Role Phone Viky Girard MD Primary Care Provider [phone] Antonio Stafford MD Primary Care Provider [phone] Encounter Details Date Type Department Care Team (Late st Contact Info) Description 10/11/2020 Orders Only [facility] [address] [place] [phone] Viky Girard MD [address] [place], [place] [id number] Social History Tobacco Use Types Packs/Day Years [...] on file Legal Sex Female 2:48 AM ANIMAL HANDLER Gender Identity Not on file Sexual Orientation [...] on filedocumented in this encounter Care Teams Field Underwriter Relationship Specialty Start Date End Date Viky Girard MD PCP - General 05/19/16 04/21/21 Antonio Stafford MD PCP - General 04/22/21 documented as of this encounter
--- OUTSIDE RECORDS SUMMARY | 2024-12-02 08:41 | XMS_ITS | Encounter Summary ---
Author Organization [facility] Address [address] [place] [address] Phone Care Team Providers Care Cloud Automation Tester Name Role Phone Viky Girard MD Primary Care Provider [phone] Antonio Stafford MD Primary Care Provider [phone] Encounter Details Date Type Department Care Team (Late st Contact Info) Description 06/09/2020 Orders Only [facility] [address] [phone] Viky Girard MD [address] [place], [place] [id number] Social History Tobacco Use Types Packs/Day Years Used Date Smoking Tobacco: Never Smokeless Tobacco: Never Alcohol Use Standard Drinks/Week Comments Yes 0 (1 standard drink = 0.6 oz pur e alcohol) 2-3xs a week PHQ-2 Answer Date Recorded PHQ-2 Score 0 10/09/2018 Comments No Sex and Gender Information Value Date Recorded Sex Assigned at Not on file Legal Sex Female 2:48 AM RODEO RIDER Gender Identity Not on file Sexual Orientation Not on file 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
--- OUTSIDE RECORDS SUMMARY | 2024-12-02 08:41 | XMS_ITS | Encounter Summary ---
Author Organization [facility] Address [address] [place] [address] Care Team Providers Care Forklift Picker Name Role Phone Unavailable Primary Care Provider Unavailabl e Encounter Details Date Type Department Care Team (Late st Contact Info) Description 12/23/2020 Lab Requisition [facility] [address] [facility] [place] [phone] Catarino Nieves MD [facility] [address] [address] Social History Tobacco Use Types Packs/Day Years Used Date Smoking Tobacco: Never Assessed Comments Unknown Sex and Gender Information Value Date Recorded Sex Assigned at Not on file Legal Sex Female 11:46 AM ELECTROLESS PLATER Gender Identity Not on file Sexual Orientation Not on file documented as of this encounter Plan of Treatment Not on file documented as of this encounter Procedures Procedure Name Priority Date/Time Associated Diagnosis Comments DERMATOPATHOLOGY Routine 12/20/2020 12:0 0 AM CDT documented in this encounter Results * DERMATOPATHOLOGY (12/20/2020 12:00 AM CDT) Case Report Dermatopathology Report Case: [id number] Authorizing Provider: Catarino Nieves MD Collected: 12/20/2020 12:00 AM Ordering Location: [facility] Received: 12/23/2020 09:11 AM Pathologist: [...] specimen consists of a shave biopsy measuring [id number]. Jar 0. 5:20 PM CDT DERMATOPATHOLOGY LABORATORY [...] characteristic determined by the Dermatopathology Laboratory at [facility], directed by Dr. Arnol Vallejo. These tests need not be, and therefore are not, approved by the [place] Food and Drug Administration. The tests are used for clinical purposes. Billing Codes Specimen Charges Stain Charges 20454 1 5:20 PM CDT DERMATOPATHOLOGY LABORATORY Embedded Images 5:20 PM CDT DERMATOPATHOLOGY LABORATORY Pathology/Cytolog y TISSUE SPECIMEN FROM SKIN / Unknown 12/20/2020 12/23/2020 9:11 AM CDT us Catarino Nieves MD LAB - PATHOLOGY/CYTOLOGY ORDERAB LES Final Result DERMATOPATHOLOGY LABORATORY [facility] - Department of Dermatology [address], [address] [phone] documented in this encounter Visit Diagnoses Not on filedocumented in this encounter
--- OUTSIDE RECORDS SUMMARY | 2024-12-02 08:41 | XMS_ITS | Clinical Summary ---
Author Organization [facility] Address [address] [place] [address] Care Team Providers Care Movie Extra Name Role Phone Unavailable Primary Care Provider Unavailabl e Source Comments [facility],non-owned Affiliates and Associated Physician Practices is amultiple site organization consisting of ambulatory clinics and hospital sitesin [place], [place], [place] and [place]. This disclosure is being madepursuant to the Care Everywhere program and may not contain all information available regarding this patient. 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
--- OUTSIDE RECORDS SUMMARY | 2024-12-02 08:41 | XMS_ITS | Encounter Summary ---
Author Organization [facility] Address [address] [place] [address] Care Team Providers Care Wind Energy Engineer Name Role Phone Viky Girard MD Primary Care Provider +1- [phone] Antonio Stafford MD Primary Care Provider +1 -[phone] Reason for Visit * Reason Onset Date Comments Prior Auth 10/16/2018 Diclofenac Encounter Details Date Type Department Care Team (Late st Contact Info) Description 10/16/2018 Telephone [facility] at the [place] [facility] [address] 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 02/18/2020 02/20/2020 06/17/2020 3:05 AM C DT documented as of this encounter Care Teams Wind Energy Engineer Relationship Specialty Start Date End Date Viky Girard MD PCP - General 05/19/16 04/21/21 Antonio Stafford MD PCP - General 04/22/21 documented as of this encounter
--- OUTSIDE RECORDS SUMMARY | 2024-12-02 08:41 | XMS_ITS | Encounter Summary ---
Author Organization [facility] Address [address] [email or web address] [address] Phone Care Team Providers Care Skein Spooler Name Role Phone Viky Girard MD Primary Care Provider +1- [phone] Antonio Stafford MD Primary Care Provider +1 -[phone] Encounter Details Date Type Department Care Team (Late st Contact Info) Description 06/25/2017 Orders Only [facility] [address] [email or web address] [phone] Viky Girard MD [address] [place] [address] Social History Tobacco Use Types Packs/Day Years Used Date Smoking Tobacco: Never Smokeless Tobacco: Never Alcohol Use Standard Drinks/Week Comments Yes 0 (1 standard drink = 0.6 oz pur e alcohol) Comments No Sex and Gender Information Value Date Recorded Sex Assigned at Not on file Legal Sex Female 2:48 AM HEMODIALYSIS LAB TECHNICIAN Gender Identity Not on file Sexual Orientation Not on file 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 02/18/2020 02/20/2020 06/17/2020 3:05 AM C DT documented as of this encounter Care Teams Skein Spooler Relationship Specialty Start Date End Date Viky Girard MD PCP - General 05/19/16 04/21/21 Antonio Stafford MD PCP - General 04/22/21 documented as of this encounter
--- OUTSIDE RECORDS SUMMARY | 2024-12-02 08:41 | XMS_ITS | Encounter Summary ---
Author Organization [facility] Address [address] [facility] [address] [place] [address] Phone Care Team Providers Care Medical Territory Manager Name Role Phone Viky Girard MD Primary Care Provider +1- [phone] Antonio Stafford MD Primary Care Provider +1 -[phone] Encounter Details Date Type Department Care Team (Late st Contact Info) Description 04/13/2017 Orders Only [facility] ProviderKai MD [facility] [place] [address] Social History Tobacco Use Types Packs/Day Years Used Date Smoking Tobacco: Never Alcohol Use Standard Drinks/Week Comments Yes 0 (1 standard drink = 0.6 oz pur e alcohol) Comments Unknown Sex and Gender Information Value Date Recorded Sex Assigned at Not on file Legal Sex Female 2:48 AM CONCRETE BUCKET HOOKER Gender Identity Not on file Sexual Orientation Not on file documented as of this encounter Plan of Treatment Not on file documented as of this encounter Procedures Procedure Name Priority Date/Time Associated Diagnosis Comments DISCHARGE LABORATORY CUMULATIVE REPORT 04/13/2017 12:00 AM CONCRETE BUCKET HOOKER documented in this encounter Results * DISCHARGE LABORATORY CUMULATIVE REPORT (04/13/2017 12:00 AM CONCRETE BUCKET HOOKER) Narrative 04/13/2017 12:00 AM CONCRETE BUCKET HOOKER Ordered by an unspecified provider. us Historical Provider LAB BLOOD ORDERABLES Meaghan l Result documented in this encounter Visit Diagnoses Not on filedocumented in this encounter Additional Health Concerns Infection Onset Date Last Indicated Resolved Time COVID: Suspected 02/04/2020 02/04/2020 02/06/2020 8:46 AM CONCRETE BUCKET HOOKER COVID19 02/04/2020 02/04/2020 02/18/2020 3:07 AM CONCRETE BUCKET HOOKER COVID: Recovered Comment:Added based on recent COVID infection. 02/18/2020 02/20/2020 06/17/2020 3:05 AM C DT documented as of this encounter Care Teams Medical Territory Manager Relationship Specialty Start Date End Date Viky Girard MD PCP - General 05/19/16 04/21/21 Antonio Stafford MD PCP - General 04/22/21 documented as of this encounter
--- OUTSIDE RECORDS SUMMARY | 2024-12-02 08:41 | XMS_ITS | Clinical Summary ---
Author Organization [facility] Address [address] [place] [address] Care Team Providers Care Thermal Technician Name Role Phone Antonio Stafford MD Primary Care Provider +1 -[phone] Allergies No known active allergies Medications acetaminophen-c [...] (04/12/2018): Added automatically from request for surgery [id number] Arthritis of back 05/08/2017 Overview (05/24/2020): 8 mm L3-4 spondylolisthesis April [address] [facility] Hx of adenomatous colonic polyps 07/05/2013 [...] the patient's symptoms. Given the severely elevated [place] Sleepiness Scale score of 15, recommend a [...] KNEE ARTHROSCOPY 02/19/2009 - 02/18/2010 FOOT SURGERY [id number] Right tarsal tunnel release, nerve entrapment release, [...] the patient's symptoms. 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 Not on file [...] 104.3 kg (230 lb) 03/17/2024 1:14 PM WASTE BALER Height 175.3 cm (5' 9) 03/17/2024 1:14 PM WASTE BALER Body Mass Index 33.97 03/17/2024 1:14 PM WASTE BALER Plan of Treatment Health Maintenance Due Date Last Done Comments Colon Cancer Screening-Colonoscopy 1962 Hepatitis B Screening 1980 Breast Cancer Screening-Mammogram 10/08/2020 10/09/2019, 08/09/2018, 06/07/2017 Depression Screening 06/21/2021 06/21/2020, 04/12/19 19 Regular Well Visit/Exam 18-64 06/21/2021 06/21/2020, 10/01/2019, 04/03/2018, Additional history exists Covid-19 Vaccine ( season) 2024 12/24/2021, 12/24/2020, 06/04/2020, Additional history exists Influenza [...] as needed Medical Devices Implanted Type Area Embedded Systems Software Engineer Device Identifier Shelf Expiration Date Model / Serial / Lot [employer] [id number] Attune Cementless Rotate Platform Knee 5 Baseplate Tibial - [id number] Implanted:Qty: 1 on 05/08/2018 by Shiraz No MD at [facility] [employer] 06/19/2027 [id number] / / [id number] [employer] [id number] Attune Cruciate Retain Cementless Knee Right 5 Component Femoral - [id number] Implanted:Qty: 1 on 05/08/2018 by Shiraz No MD at [facility] [employer] 09/19/2027 [id number] / / [id number] [employer] [id number] Palacos R+G High Viscosity Cement Bone Gentamicin Arthroplasty - [id number] Implanted:Qty: 1 on 05/08/2018 by Shiraz No MD at [facility] [employer] 09/18/2020 [id number] / / [id number] [employer] [id number] Attune 38mm Cemented Medialize Knee Dome Patellar Aox Sterile - [id number] Implanted:Qty: 1 on 05/08/2018 by Shiraz No MD at [facility] Right: Knee [employer] 12/19/2022 [id number] / / [id number] [employer] [id number] Attune 6mm Cruciate Retaining Rotate Platform Knee 5 Insert - [id number] Implanted:Qty: 1 on 05/08/2018 by Shiraz No MD at [facility] Right: Knee [employer] 10/19/2021 [id number] / / [id number] Procedures Procedure Name Priority Date/Time Associated Diagnosis Comments SCREENING MAMMOGRAM 2D BILATERAL Schedule Routine, Read Routine (OP Routine) 10/09/2019 8:15 AM CDT Encounter for screening for malignant neoplasm of breast HEPATITIS C ANTIBODY Routine 04/26/2018 9:30 AM WASTE BALER Preoperative testing THINPAP, REFLEX HPV ALL PTH [...] * Hepatitis C antibody (04/26/2018 9:30 AM WASTE BALER) Hep C Ab Negative Negative [facility] Comment:Testing performed by : [facility], [address] [place] [address], [place]., [address] Blood specimen (specimen) 04/26/2018 9:30 AM WASTE BALER 04/26/2018 4:11 PM WASTE BALER Narrative [facility] - 04/26/2018 5:17 PM WASTE BALER us Shiraz No MD LAB MICROBIOLOGY - GENERAL O RDERABLES Final Result [facility] [address] [facility] Department [place] [address] * ThinPrep Pap, Reflex HPV all pth [...] Risk HPV DNA testing was not performed. 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 08/14/2012 1:06 PM CDT Viky Girard MD LAB PATHOLOGY ORDERABLES F inal Result [facility] HISTORICAL RESULTS from Last 3 Months or Most Recently Relevant to Health Maintenance Insurance [facility] H[facility]/PPO Address: [address] [address] [place] [address] [facility] H[facility]/PPO Address: [address] [address] [place] [address] [facility] Advance Directives For more information, please contact: [phone] * Full Code (Latest Code Status on File) Date Activated Date Inactivated Comments 05/08/2018 6:56 PM 05/09/2018 8:46 PM Care Teams Thermal Technician Relationship Specialty Start Date End Date Antonio Stafford MD PCP - General 04/22/21
== END 2024-12-02 08:20 | disposition home or self-care (01) ==
LOC: ANHFOHIMG 08:23
PROVIDERS: PCP Family Medicine; Visit Provider Obstetrics & Gynecology Gynecology
DX: Z12.31 Encounter for screening mammogram for malignant neoplasm of breast (principal)
CPT/HCPCS: 77063; 77067

== ENCOUNTER 2024-12-17 08:11 | Emergency (ER) | payer BC, SELFPAY ==
[2024-12-17 08:16] VITALS: BP 131/75; PULSE 86; RESP 20; TEMP 36.7; O2SAT 97
--- OUTSIDE RECORDS SUMMARY | 2024-12-17 08:19 | XMS_ITS | Encounter Summary ---
Author Organization [facility] Healthcare Address [address] [place] [address] Care Team Providers Care Lottery Clerk Name Role Phone Viky Girard MD Primary Care Provider +1- [phone] Antonio Stafford MD Primary Care Provider +1 -[phone] Reason for Visit * Reason Onset Date Comments Prior Auth 11/06/2018 Diclofenac 1% Ge l Encounter Details Date Type Department Care Team (Late st Contact Info) Description 11/06/2018 Telephone [facility] at the [place] [facility] [address] [facility] [address] [place], [place] [id number] [place] [address] [place] [address], [place] [phone] Prior Auth (Diclofenac 1% Gel) Social History [...] on file Legal Sex Female 2:48 AM INCINERATOR OPERATOR Gender Identity Not on file Sexual Orientation Not on file 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 02/18/2020 02/20/2020 06/17/2020 3:05 AM C DT documented as of this encounter Care Teams Lottery Clerk Relationship Specialty Start Date End Date Viky Girard MD PCP - General 05/19/16 04/21/21 Antonio Stafford MD PCP - General 04/22/21 documented as of this encounter
--- OUTSIDE RECORDS SUMMARY | 2024-12-17 08:19 | XMS_ITS | Encounter Summary ---
Author Organization [facility] Healthcare Address [address] [place] [address] Care Team Providers Care Voice Network Administrator Name Role Phone Viky Girard MD Primary Care Provider +1- [phone] Antonio Stafford MD Primary Care Provider +1 -[phone] Reason for Visit * Reason Onset Date Comments Prior Auth 10/16/2018 Diclofenac Encounter Details Date Type Department Care Team (Late st Contact Info) Description 10/16/2018 Telephone [facility] Center at the [place] [facility] [address] [facility] [address] [place] [address] [place] [address] [place] [address], [place] [address] Prior Auth (Diclofenac) Social History Tobacco Use [...] on file Legal Sex Female 2:48 AM COVER REMOVER Gender Identity Not on file Sexual Orientation Not on file 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 02/18/2020 02/20/2020 06/17/2020 3:05 AM C DT documented as of this encounter Care Teams Voice Network Administrator Relationship Specialty Start Date End Date Viky Girard MD PCP - General 05/19/16 04/21/21 Antonio Stafford MD PCP - General 04/22/21 documented as of this encounter
--- OUTSIDE RECORDS SUMMARY | 2024-12-17 08:20 | XMS_ITS | Encounter Summary ---
Author Organization [facility] Address [address] [place] [address] [place] [address] Phone Care Team Providers Care Banking Officer Name Role Phone Viky Girard MD Primary Care Provider +1- [phone] Antonio Stafford MD Primary Care Provider +1 -[phone] Encounter Details Date Type Department Care Team (Late st Contact Info) Description 04/13/2017 Orders Only [facility] ProviderKai [place] [address] Social History Tobacco Use Types Packs/Day Years Used Date Smoking Tobacco: Never Alcohol Use Standard Drinks/Week Comments Yes 0 (1 standard drink = 0.6 oz pur e alcohol) Comments Unknown Sex and Gender Information Value Date Recorded Sex Assigned at Not on file Legal Sex Female 2:48 AM AIRPORT CLERK Gender Identity Not on file Sexual Orientation Not on file documented as of this encounter Plan of Treatment Not on file documented as of this encounter Procedures Procedure Name Priority Date/Time Associated Diagnosis Comments DISCHARGE LABORATORY CUMULATIVE REPORT 04/13/2017 12:00 AM AIRPORT CLERK documented in this encounter Results * DISCHARGE LABORATORY CUMULATIVE REPORT (04/13/2017 12:00 AM AIRPORT CLERK) Narrative 04/13/2017 12:00 AM AIRPORT CLERK Ordered by an unspecified provider. us Historical Provider LAB BLOOD ORDERABLES Meaghan l Result documented in this encounter Visit Diagnoses Not on filedocumented in this encounter Additional Health Concerns Infection Onset Date Last Indicated Resolved Time COVID: Suspected 02/04/2020 02/04/2020 02/06/2020 8:46 AM AIRPORT CLERK COVID19 02/04/2020 02/04/2020 02/18/2020 3:07 AM AIRPORT CLERK COVID: Recovered Comment:Added based on recent COVID infection. 02/18/2020 02/20/2020 06/17/2020 3:05 AM C DT documented as of this encounter Care Teams Banking Officer Relationship Specialty Start Date End Date Viky Girard MD PCP - General 05/19/16 04/21/21 Antonio Stafford MD PCP - General 04/22/21 documented as of this encounter
--- OUTSIDE RECORDS SUMMARY | 2024-12-17 08:20 | XMS_ITS | Encounter Summary ---
Author Organization [facility] Address [address] [place] [address] Care Team Providers Care Optician Name Role Phone Unavailable Primary Care Provider Unavailabl e Encounter Details Date Type Department Care Team (Late st Contact Info) Description 12/23/2020 Lab Requisition [facility] [address] [facility] [place] [phone] Catarino Nieves MD [facility] [address] [address] Social History Tobacco Use Types Packs/Day Years Used Date Smoking Tobacco: Never Assessed Comments Unknown Sex and Gender Information Value Date Recorded Sex Assigned at Not on file Legal Sex Female 11: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 Gender Identity Not on file Sexual Orientation Not on file documented as of this encounter Plan of Treatment Not on file documented as of this encounter Procedures Procedure Name Priority Date/Time Associated Diagnosis Comments DERMATOPATHOLOGY Routine 12/20/2020 12:0 0 AM CDT documented in this encounter Results * DERMATOPATHOLOGY (12/20/2020 12:00 AM CDT) Case Report Dermatopathology Report Case: [id number] Authorizing Provider: Catarino Nieves MD Collected: 12/20/2020 12:00 AM Ordering Location: [facility] Received: 12/23/2020 09:11 AM Pathologist: [...] specimen consists of a shave biopsy measuring [id number]. Jar 0. 5:20 PM CDT DERMATOPATHOLOGY LABORATORY [...] characteristic determined by the Dermatopathology Laboratory at [facility], directed by Dr. Arnol Vallejo. These tests need not be, and therefore are not, approved by the [place] Food and Drug Administration. The tests are used for clinical purposes. Billing Codes Specimen Charges Stain Charges 65270 1 5:20 PM CDT DERMATOPATHOLOGY LABORATORY Embedded Images 5:20 PM CDT DERMATOPATHOLOGY LABORATORY Pathology/Cytolog y TISSUE SPECIMEN FROM SKIN / Unknown 12/20/2020 12/23/2020 9:11 AM CDT us Catarino Nieves MD LAB - PATHOLOGY/CYTOLOGY ORDERAB LES Final Result DERMATOPATHOLOGY LABORATORY [facility] - Department of Dermatology [address] [phone] documented in this encounter Visit Diagnoses Not on filedocumented in this encounter
--- OUTSIDE RECORDS SUMMARY | 2024-12-17 08:20 | XMS_ITS | Clinical Summary ---
Author Organization [facility] Address [address] [facility], [address] [address] Phone Care Team Providers Care Airplane Inspector Name Role Phone Antonio Stafford MD Primary Care Provider [phone] Lane Stock MD Unavailable Allergies No known [...] Description 09/30/2024 9:00 AM CDT Office Visit [facility] - General Surgery - [place] [address] [phone] Lane Stokc MD S/P colon resection (Primary Dx) Discharge Disposition: Discharged to home or Selfcare 09/30/2024 Travel 09/22/2024 Travel from Last 3 Months Family History [...] more drinks on one occasion? Weekly 07/23/2019 Social Connection and Isolation Panel Answer Date Recorded In a typical week, how many times do you talk on the phone with family, friends, or neighbors? Patient declined 08/25/2024 How often do you get togethe r with friends or relatives? Patient declined 08/25/2024 How often do you attend baptist or christian serv ices? Patient declined 08/25/2024 Do you belong to any clubs o r organizations such as baptist groups, unions, fraternal or athletic groups, or [...] medical care, and heating? Patient declined 08/25/2024 [facility] - Occupational Stress Questionnaire Answer Date [...] any time in the past 12 m [facility], were you homeless or living in a fpc (including now)? Patient declined 08/25/2024 [facility] Utilities Answer Date Recorded In the [...] st Contact Info) Description 02/02/2025 10:30 AM MEN'S FURNISHINGS SALESPERSON Hospital Encounter [facility] [address] [place] [address] [address] Stock MD #[address] [address] 02/02/2025 10:30 AM MEN'S FURNISHINGS SALESPERSON - 02/02/2025 11:00 AM MEN'S FURNISHINGS SALESPERSON [facility] [address] [place] [address] [address] Stock MD #[address] [address] COLONOSCOPY Scheduled Procedures Name Priority Associated Diagnoses Date/Ti me COLONOSCOPY HISTORY OF COLON POLYPS 02/02/2025 10:30 AM MEN'S FURNISHINGS SALESPERSON Health Maintenance Due Date Last Done Comments [...] patient's age to complete this topic Insurance Advance Directives * Full Code (Latest Code Status on File) Date Activated Date Inactivated Comments 08/26/2024 10:21 AM CPR-Full Treat ment: FULL ARREST: Attempt Resuscitation/CPR wit intubation and mechanical ventilation. PRE-ARREST: Use entire range of life support measures to stabilize the patient. Care Teams Airplane Inspector Relationship Specialty Start Date End Date Antonio Stafford MD PCP - General Family Medicine 11/29/21 Lane Stock MD #2 [place] [address] Consulting Physician Colon and Rectal Surgery 07/24/23
--- OUTSIDE RECORDS SUMMARY | 2024-12-17 08:20 | XMS_ITS | Encounter Summary ---
Author Organization [facility] Address [address] [place] [address] Phone Care Team Providers Care Production Potter Name Role Phone Viky Girard MD Primary Care Provider [phone] Antonio Stafford MD Primary Care Provider [phone] Encounter Details Date Type Department Care Team (Late st Contact Info) Description 10/11/2020 Orders Only [facility] [address] [place] [phone] Viky Girard MD [address] [place], [place] [id number] Social History Tobacco Use Types Packs/Day Years [...] on file Legal Sex Female 2:48 AM HOME DEMONSTRATION AGENT Gender Identity Not on file Sexual Orientation Not on file 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
--- OUTSIDE RECORDS SUMMARY | 2024-12-17 08:20 | XMS_ITS | Encounter Summary ---
Author Organization [facility] Address [address] [place] [address] Care Team Providers Care Lead Electrician Name Role Phone Unavailable Primary Care Provider Unavailabl e Encounter Details Date Type Department Care Team (Late st Contact Info) Description 08/29/2019 Lab Requisition [facility] [address] [place] [address] Dudley Holland MD Social History Tobacco Use Types Packs/Day Years Used Date Smoking Tobacco: Never Assessed Comments Unknown Sex and Gender Information Value Date Recorded Sex Assigned at Not on file Legal Sex Female 11:46 AM SET RIDER Gender Identity Not on file Sexual [...] Not detected, Invalid 08/29/2019 10:40 PM CDT [facility] Microbiology SPECIMEN FROM NASOPHARYNGEAL STRUCTURE / Unknown Collection / Unknown 08/29/2019 8:35 AM CDT 08/29/2019 3:15 PM CDT Narrative [facility] - 08/29/2019 10:40 PM CDT This nucleic acid amplification assay performance was validated by [facility]. This test has been authorized [...] LAB - MICROBIOLOGY ORDERABL ES Final Result [facility] [address] [place] [address], [facility] [phone] documented in this encounter Visit Diagnoses Not on filedocumented in this encounter Additional Health Concerns Infection Onset Date Last Indicated Resolved Time COVID-19 Under Investigation 08/29/2019 08/29/2019 08/29/2019 10:40 PM CDT documented as of this encounter
--- OUTSIDE RECORDS SUMMARY | 2024-12-17 08:20 | XMS_ITS | Clinical Summary ---
Author Organization [facility] Office Building B Address [address] [place] [phone] Care Team Providers Care Director Of Scientific Research Name Role Phone Antonio Stafford MD Primary Care Provider [phone] Allergies No known active allergies Medications acetaminophen-c [...] (04/12/2018): Added automatically from request for surgery [id number] Arthritis of back 05/08/2017 Overview (05/24/2020): 8 mm L3-4 spondylolisthesis April 2020 x-rays at [facility] Hx of adenomatous colonic polyps 07/05/2013 Overview [...] the patient's symptoms. Given the severely elevated Enterprise Sleepiness Scale score of 15, recommend a [...] KNEE ARTHROSCOPY 02/19/2009 - 02/18/2010 FOOT SURGERY [id number] Right tarsal tunnel release, nerve entrapment release, [...] the patient's symptoms. 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 Not on file Not [...] 104.3 kg (230 lb) 03/17/2024 1:14 PM FAMILY NURSE PRACTITIONER Height 175.3 cm (5' 9) 03/17/2024 1:14 PM FAMILY NURSE PRACTITIONER Body Mass Index 33.97 03/17/2024 1:14 PM FAMILY NURSE PRACTITIONER Plan of Treatment Health Maintenance Due Date [...] as needed Medical Devices Implanted Type Area Flyer Repairer Device Identifier Shelf Expiration Date Model / Serial / Lot [employer] [id number] Attune Cementless Rotate Platform Knee 5 Baseplate Tibial - [id number] Implanted:Qty: 1 on 05/08/2018 by Shiraz No MD at [facility] [employer] 06/19/2027 [id number] / / [id number] [employer] [id number] Attune Cruciate Retain Cementless Knee Right 5 Component Femoral - [id number] Implanted:Qty: 1 on 05/08/2018 by Shiraz No MD at [facility] [employer] 09/19/2027 [id number] / / [id number] Red 5 [employer] [id number] Palacos R+G High Viscosity Cement Bone Gentamicin Arthroplasty - [id number] Implanted:Qty: 1 on 05/08/2018 by Shiraz No MD at [facility] Red 5 [employer] 09/18/2020 [id number] / / [id number] [employer] [id number] Attune 38mm Cemented Medialize Knee Dome Patellar Aox Sterile - [id number] Implanted:Qty: 1 on 05/08/2018 by Shiraz No MD at [facility] Right: Knee [employer] 12/19/2022 [id number] / / [id number] [employer] [id number] Attune 6mm Cruciate Retaining Rotate Platform Knee 5 Insert - [id number] Implanted:Qty: 1 on 05/08/2018 by Shiraz No MD at [facility] Right: Knee [employer] 10/19/2021 [id number] / / [id number] Procedures Procedure Name Priority Date/Time Associated Diagnosis Comments SCREENING MAMMOGRAM 2D BILATERAL Schedule Routine, Read Routine (OP Routine) 10/09/2019 8:15 AM CDT Encounter for screening for malignant neoplasm of breast HEPATITIS C ANTIBODY Routine 04/26/2018 9:30 AM FAMILY NURSE PRACTITIONER Preoperative testing THINPAP, REFLEX HPV ALL PTH [...] * Hepatitis C antibody (04/26/2018 9:30 AM FAMILY NURSE PRACTITIONER) Hep C Ab Negative Negative [facility] ([facility]) Comment:Testing performed by : [facility], [address] [place] [address], [place]., [address] Blood specimen (specimen) 04/26/2018 9:30 AM FAMILY NURSE PRACTITIONER 04/26/2018 4:11 PM FAMILY NURSE PRACTITIONER Narrative [facility] ([facility]) - 04/26/2018 5:17 PM FAMILY NURSE PRACTITIONER us Shiraz No MD LAB MICROBIOLOGY - GENERAL O RDERABLES Final Result [facility]KE HERRERA (VINA) [address] [facility] Department [place] [address] * ThinPrep Pap, Reflex HPV all pth [...] Risk HPV DNA testing was not performed. 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 08/14/2012 1:06 PM CDT Viky Girard MD LAB PATHOLOGY ORDERABLES F inal Result [facility] HISTORICAL RESULTS from Last 3 Months or Most Recently Relevant to Health Maintenance Insurance [facility] CHOICE PLUS [facility] CHOICE PLUS [facility] Advance Directives For more information, please contact: [phone] * Full Code (Latest Code Status on File) Date Activated Date Inactivated Comments 05/08/2018 6:56 PM 05/09/2018 8:46 PM Care Teams Director Of Scientific Research Relationship Specialty Start Date End Date Antonio Stafford MD PCP - General 04/22/21
--- OUTSIDE RECORDS SUMMARY | 2024-12-17 08:20 | XMS_ITS | Encounter Summary ---
Author Organization [facility] Address [address] [place] [address] Phone Care Team Providers Care Scalder Name Role Phone Viky Girard MD Primary Care Provider [phone] Antonio Stafford MD Primary Care Provider [phone] Encounter Details Date Type Department Care Team (Late st Contact Info) Description 06/25/2017 Orders Only [facility] [address] [place] [phone] Viky Girard MD [address] [place] [address] Social History Tobacco Use Types Packs/Day Years Used Date Smoking Tobacco: Never Smokeless Tobacco: Never Alcohol Use Standard Drinks/Week Comments Yes 0 (1 standard drink = 0.6 oz pur e alcohol) Comments No Sex and Gender Information Value Date Recorded Sex Assigned at Not on file Legal Sex Female 2:48 AM BOAT DESIGNER Gender Identity Not on file Sexual Orientation Not on file 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 02/18/2020 02/20/2020 06/17/2020 3:05 AM C DT documented as of this encounter Care Teams Scalder Relationship Specialty Start Date End Date Viky Girard MD PCP - General 05/19/16 04/21/21 Antonio Stafford MD PCP - General 04/22/21 documented as of this encounter
--- OUTSIDE RECORDS SUMMARY | 2024-12-17 08:20 | XMS_ITS | Clinical Summary ---
Author Organization [facility] Address [address] [place] [address] Care Team Providers Care Auto Club Travel Counselor Name Role Phone Unavailable Primary Care Provider Unavailabl e Source Comments [facility],non-owned Affiliates and Associated Physician Practices is amultiple site organization consisting of ambulatory clinics and hospital sitesin [place], [place], [place] and [place]. This disclosure is being madepursuant to the Care Everywhere program and may not contain all information available regarding this patient. 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
--- OUTSIDE RECORDS SUMMARY | 2024-12-17 08:20 | XMS_ITS | Encounter Summary ---
Author Organization [facility] Address [address] [place] [address] Phone Care Team Providers Care Sustainable Agriculture Specialist Name Role Phone Viky Girard MD Primary Care Provider [phone]- [phone] Antonio Stafford MD Primary Care Provider [phone] [phone] Encounter Details Date Type Department Care Team (Late st Contact Info) Description 06/09/2020 Orders Only [facility] [address] [place] [phone] Viky Girard MD [address] [place], [place] [id number] Social History Tobacco Use Types Packs/Day Years Used Date Smoking Tobacco: Never Smokeless Tobacco: Never Alcohol Use Standard Drinks/Week Comments Yes 0 (1 standard drink = 0.6 oz pur e alcohol) 2-3xs a week PHQ-2 Answer Date Recorded PHQ-2 Score 0 10/09/2018 Comments No Sex and Gender Information Value Date Recorded Sex Assigned at Not on file Legal Sex Female 2:48 AM YARD SUPERVISOR Gender Identity Not on file Sexual Orientation Not on file 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
--- NOTE | 2024-12-17 08:22 | ED_ITS ---
HPI - URI/Sore Throat General Chief Complaint: Upper Respiratory Infection Stated Complaint: ?Strep Time Seen by Provider: 12/17/24 08:40 Source: patient and RN notes reviewed Mode of arrival: ambulatory Limitations: no limitations History of Present Illness HPI Narrative: 64-year-old female presents with concern for sore throat. She reports symptoms started yesterday. She has a mild cough and diarrhea. She reports body aches but denies fever. She has been taking Mucinex small symptom cold medicine ibuprofen. She denies known sick contacts MD elicited complaint: sore throat Related Data Allergies Allergy/AdvReac Type Severity Reaction Status Date / Time No Known Allergies Allergy Verified 12/17/24 08:16 Review of Systems Review of Systems: CONSTITUTIONAL: Denies malaise, chills, sweats, or fever. EYES: Denies visual changes, redness, or discharge. ENT: Reports rhinorrhea, congestion, and sore throat. CARDIOVASCULAR: Denies chest pain, palpitations, or edema. RESPIRATORY: Reports cough. Denies dyspnea. GASTROINTESTINAL: Denies abdominal pain, nausea, vomiting, diarrhea SKIN: Denies rash or itching. MUSCULOSKELETAL: Reports myalgia. NEUROLOGIC: Denies headache. All systems reviewed & are unremarkable except as noted in HPI and below PMFSH Past Medical History Medical History Right wrist pain Elective x1 Vaginal delivery x2 Tendonitis Obesity Chronic knee pain after total replacement of right knee joint Polyp of ascending colon Diverticulitis (~06/2019) Arthritis Adenomatous colon polyp Surgical History Surgical History History of dilation and curettage x2 Jackson teeth extracted History of bilateral tubal ligation 1993 History of total knee replacement (TKR) x2, both knees History of arthroscopy of right knee (~12/2013) Hx of total knee arthroplasty (~05/08/18) right Status post right partial knee replacement (~04/2013) H/O: hysterectomy (~2001) 2002 H/O hand surgery H/O foot surgery H/O colonoscopy (~09/2019) History of bladder suspension procedure 2006 Family History Family History Father ALS (amyotrophic lateral sclerosis) Mother Old age Colon cancer Unknown Heart disease Carcinoma of colon Sibling Malignant neoplasm of prostate Bladder cancer A-fib Acute myocardial infarction Diabetes mellitus Hypertension Depression Thyroid disorder Grandparent Cerebrovascular accident Other Breast cancer maternal cousin Other Arthritis Lung disease Social History Social History Smoking status: Never smoker Additional smoking assessment comments: DENIES ANY FORM OF TOBACCO USE Alcohol intake: current Drinks per week: 6 Alcohol use details: BEER/WINE Substance use: never Substance use type: does not use Lack of Transportation: No Lack of Food: Never True Current Housing: I Have Housing Concerned About Future Housing: No Difficulty Paying Gas/Electric Bills: No Difficulty Paying for Meds: No Currently Unemployed: No Education: Trade/Vocational Certificate Difficulty w/ Childcare or Family Care: No Living arrangements: with family Gender identity (if verbalized by the patient): Female Spiritual care concerns: No Agree to blood products: Yes Comments At time of signature, agree with nursing past medical, surgical, social and family history. There is no relevant family history pertinent to the presenting complaint Exam Narrative: GENERAL: Nontoxic-appearing, well-nourished, and in no acute distress. HEAD: Normocephalic EYES: PERRLA, conjunctivae clear ENT: Nares clear. Mucous membranes moist. TM pearly cherry with dull light reflex bilaterally; no tragal tenderness. Oropharynx not erythematous without lesions. Tonsils not enlarged and without exudate, no drooling, no hoarseness, no trismus, uvula midline. NECK: Supple. No lymphadenopathy CHEST: Clear to auscultation, breath sounds equal. No wheezing, rhonchi, rales, or stridor. No respiratory distress, speaks in full sentences. HEART: Regular rate and rhythm. No murmur heard. SKIN: Warm, dry, no rash. NEURO: Alert and oriented x3. PSYCH: Normal mood and affect Course Course Emergency Course: Patient is aware of diagnosis, understands and agrees to treatment plan. Anticipatory guidance given. Patient agrees to follow-up as directed and is aware of reasons to seek care at the emergency department. Portions of this record may have been created with voice recognition software Level of Care: Express Care Visit Vital Signs Vital signs: Vital Signs Temperature 98.1 F 12/17/24 08:16 Pulse Rate 86 12/17/24 08:16 Respiratory Rate 20 12/17/24 08:16 Blood Pressure 131/75 12/17/24 08:16 Pulse Oximetry 97 12/17/24 08:16 Oxygen Delivery Room Air 12/17/24 08:16 Temperature 98.1 F 12/17/24 08:16 Pulse Rate 86 12/17/24 08:16 Respiratory Rate 20 12/17/24 08:16 Blood Pressure 131/75 12/17/24 08:16 Pulse Oximetry 97 12/17/24 08:16 Oxygen Delivery Room Air 12/17/24 08:16 Reviewed. MDM - URI/Sore Throat MDM Narrative Medical decision making narrative: Differential diagnosis considered: Corrigan virus, strep pharyngitis, allergic rhinitis, upper respiratory tract infection, sinusitis, rhinosinusitis, nasopharyngitis. viral pharyngitis, otitis media, otitis externa, pneumonia, bronchitis, viral cough syndrome, viral syndrome, and influenza. Exam findings show no acute concerns or changes; patient is non-toxic appearing and is in no distress. Patient is appropriate for outpatient treatment and follow-up. Lab Data Attestation: I reviewed the patient's lab results. Labs: Lab Results 12/17/24 Range/Units 08:30 POC Grp A Strep Screen Negative (Negative) Critical Care Time Critical Care Time Critical Care Time: No Discharge Plan Discharge Clinical Impression: Upper respiratory infection Patient Disposition: Home Condition: Stable Instructions: Upper Respiratory Infection (ED) Additional Instructions: Your rapid COVID and flu tests are negative Your rapid strep swab was negative today at [facility]. A throat culture will be sent to the laboratory for further testing. If the test is positive, you will receive a phone call within 48 hours and an appropriate antibiotic will be initiated at that time. Your symptoms are likely due to a viral illness, which is not treated with antibiotics. Viral symptoms can be present for up to a few weeks. -Alternate Tylenol and Motrin per package directions for fever or pain. -Antihistamine medication such as Benadryl at night and Zyrtec during the day can help improve symptoms. -Eat and drink things that are easy to swallow, like tea or soup, or popsicles to suck on. -Oral rinses such as: Salt water gargles and/or may use topical anesthetic (eg. Chloraseptic spray) or lozenges to relieve dryness or throat pain). -Frequent hand washing or hand senior clinical data coordinator is one of the best ways to prevent spread of infection. -Follow up with primary care provider in 2-3 days if condition is not improving; or seek ER visit if you have trouble breathing, cannot drink enough fluids, have muffled voice, difficulty opening your mouth, or severe swelling. Patient Language: Japanese Prescriptions: No Action duloxetine 60 mg capsule,delayed release(DR/EC) See Rx Instructions .ROUTE .COMPLEX Qty: 90 1RF Dose Instruction: TAKE ONE (1) CAPSULE BY MOUTH DAILY Rx Instructions: TAKE ONE (1) CAPSULE BY MOUTH DAILY tramadol 50 mg tablet 50 mg PO Q6H PRN (Reason: pain) Qty: 120 1RF Follow-up/Referrals: Antonio Stafford MD [Primary Care Provider, [facility]] Time of Disposition: 08:59
[2024-12-17 08:32] LABS: EDSTREPNEGPOS1 Negative (Negative)
[2024-12-17 09:52] LABS: EDCOVIDSCREEN Negative (Negative); EDINFLUASCREEN Negative (Negative); EDINFLUBSCREEN Negative (Negative)
== END 2024-12-17 09:03 | disposition home or self-care (01) ==
PROVIDERS: Emergency Provider Nurse Practitioner; PCP Family Medicine
DX: J06.9 Acute upper respiratory infection, unspecified (principal); Z20.822 Contact with and (suspected) exposure to COVID-19; E66.9 Obesity, unspecified; Z68.33 Body mass index [BMI] 33.0-33.9, adult; M19.90 Unspecified osteoarthritis, unspecified site; Z96.653 Presence of artificial knee joint, bilateral
CPT/HCPCS: 87081; 87426; 87804; 87880; 99213; G0463